=== PATIENT | female | born 1955 | race Caucasian/White ===

== ENCOUNTER → 2016-10-02 | Outpatient (CLI) | payer BC ==
[~2016-10-02] MED LIST: CHOL100010 PO; DOCU-94 PO; FERR325T51 PO; LEVO112T4 PO; SENN-58 PO; SIMV-151 PO; TRIATAB3 PO
--- NOTE | 2016-10-02 12:25 | MAMMOGRAPHY REPORT ---
BILATERAL DIGITAL SCREENING MAMMOGRAM TOMOSYNTHESIS WITH CAD: 10/02/2016 TECHNIQUE: Breast tomosynthesis in addition to standard 2D mammography was performed. Current study was also evaluated with a Computer Aided Detection (CAD) system. COMPARISON: Comparison is made to exams dated: 09/30/2015 mammogram, 09/28/2014 mammogram, 09/23/2012 mammogram, 09/27/2013 mammogram, 09/22/2011 mammogram, and 09/01/2010 mammogram - [facility]. BREAST COMPOSITION: There are scattered areas of fibroglandular density in both breasts. FINDINGS: No suspicious masses, calcifications, or areas of architectural distortion are noted in e ither breast. There has been no significant interval change compared to prior exams. Scattered bilat eral benign-appearing calcifications are not significantly changed. Small circumscribed benign-appe aring mass in the left subareolar breast is stable compared to prior exams. IMPRESSION: ACR BI-RADS CATEGORY 2: BENIGN There is no mammographic evidence of malignancy. A 1 year screening mammogram is recommended. The p atient will receive written notification of the results. Approximately 10% of breast cancers are not detected with mammography. A negative mammographic repor t should not delay biopsy if a clinically suggestive mass is present. Aida Ivy M.D. /:10/02/2016 07:56:59 Demonstrator Knitting: Esther JEROME(R)(M), [facility] letter sent: Normal 1/2 BI-RADS Code: ACR BI-RADS Category 2: Benign
== END | disposition home or self-care (01) ==
LOC: C.MAMM 07:34
PROVIDERS: ATTEND Obstetrics & Gynecology
DX: Z12.31 Encounter for screening mammogram for malignant neoplasm of breast (principal)

== ENCOUNTER → 2017-03-22 | Outpatient (CLI) | payer BC ==
[2017-03-22 13:31] LABS: BLOOD UREA NITROGEN 13 mg/dl (7-18); BUN/CREATININE RATIO 16.3 (10-20); CALCIUM 9.1 mg/dl (8.5-10.1); CARBON DIOXIDE 25 mmol/L (21-32); CHLORIDE 103 mmol/L (98-107); CREATININE 0.78 mg/dl (0.60-1.20); GLUCOSE 85 mg/dl (70-99); SODIUM 137 mmol/L (136-145)
[2017-03-22 13:42] LABS: THYROID STIMULATING HORMONE 0.834 uIu/ml (0.300-4.500)
== END | disposition home or self-care (01) ==
LOC: C.LABPBG 07:36
PROVIDERS: ATTEND Internal Medicine
DX: E03.9 Hypothyroidism, unspecified (principal); I10 Essential (primary) hypertension

== ENCOUNTER → 2017-03-31 | Outpatient (CLI) | payer BC ==
--- NOTE | 2017-03-31 16:19 | DIAGNOSTIC IMAGING REPORT ---
RIGHT HAND 2 VIEWS CLINICAL HISTORY: 61 years-old Female presenting with hand pain, right index and middle finger, lump at the right SC joint. TECHNIQUE: Frontal and lateral views of the right hand were obtained. COMPARISON: None. FINDINGS: Degenerative changes noted at the first carpometacarpal articulation as well as the first carpophalangeal and interphalangeal joints. Prominent radial osteophyte at the head of the third metacarpal. Radiocarpal and intercarpal articulations normal. No acute fracture or malalignment. The second and third fingers are grossly normal, although mild degenerative change may be present. IMPRESSION: Degenerative changes of the first carpometacarpal, metacarpophalangeal, and interphalangeal joints of the first finger. No acute osseous injury. Electronically signed by: Yaron Moya M.D. 03/31/2017 4:17 PM Dictated Date/Time: 03/31/2017 4:15 PM
--- NOTE | 2017-03-31 17:39 | DIAGNOSTIC IMAGING REPORT ---
RIGHT CLAVICLE CLINICAL HISTORY: Disorder of sternoclavicular joint. COMPARISON: None FINDINGS: Alignment of the right acromioclavicular joint is anatomic. There is mild to moderate osteoarthritis of the right acromioclavicular joint. No significant osseous abnormality of the right clavicle is identified. Specifically, there is no fracture or osseous lesion. Alignment of the right sternoclavicular joint appears anatomic. No soft tissue abnormalities are identified although these are often occult by radiography. IMPRESSION: 1. No fracture or suspicious lesion within the right clavicle. 2. 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 Electronically signed by: Yg Vitale M.D. 03/31/2017 5:38 PM Dictated Date/Time: 03/31/2017 5:37 PM
== END | disposition home or self-care (01) ==
LOC: C.RAD1850 15:37
PROVIDERS: ATTEND Internal Medicine
DX: M79.641 Pain in right hand (principal); M19.011 Primary osteoarthritis, right shoulder; M19.041 Primary osteoarthritis, right hand

== ENCOUNTER → 2017-06-04 | Outpatient (CLI) | payer BC ==
[2017-06-04 11:46] LABS: BASO ABS # 0.06 K/uL (0-0.2); COMPLETE YES; EOS % 5.7 %; HEMATOCRIT 42.9 % (37-47); IG% 0.3 %; LYMPH % 34.2 %; LYMPH ABS # 2.16 K/uL (1.2-3.4); MEAN CELL VOLUME 92.5 fL (80-100); MEAN CORPUSCULAR HEMOGLOBIN 31.3 pg (25-34); MEAN CORPUSCULAR HGB CONC 33.8 g/dl (32-36); MEAN PLATELET VOLUME 9.5 fL (7.4-10.4); MONO % 9.4 %; NEUT % 49.4 %; PLATELET COUNT 284 K/uL (130-400); RED BLOOD COUNT 4.64 M/uL (4.2-5.4); WHITE BLOOD COUNT 6.31 K/uL (4.8-10.8)
[2017-06-04 12:00] LABS: CHOLESTEROL/HDL RATIO 3.9; FERRITIN 61.1 ng/ml (8.0-388.0)
== END | disposition home or self-care (01) ==
LOC: C.LABPBG 07:40
PROVIDERS: ATTEND Internal Medicine
DX: E78.5 Hyperlipidemia, unspecified (principal); E61.1 Iron deficiency

== ENCOUNTER → 2017-06-15 | Outpatient (CLI) | payer BC ==
--- NOTE | 2017-06-15 12:38 | DIAGNOSTIC IMAGING REPORT ---
SOFT TISS HEAD/NECK-THYROID CLINICAL HISTORY: 61 years-old Female presenting with M25.9 Disorder of sternoclavicular jointright neck and sternocla. TECHNIQUE: Real-time grayscale ultrasound imaging of the right sternoclavicular joint was performed for a focused evaluation at the site of clinical interest. Color Doppler was also performed. COMPARISON: CT neck from 05/12/2015 and plain radiographs of the right clavicle from 03/31/2017. FINDINGS: At the site of clinical interest, a small hypoechoic nodular region measuring 3 x 2 x 3 mm is noted. No internal vascularity on color Doppler. This is immediately superficial to the right clavicular head at the level of the sternoclavicular joint. IMPRESSION: 1. Small avascular nodule associated with the superficial aspect of the sternoclavicular joint at the level of the right clavicular head. This is indeterminate and may be related to the presence of degenerative changes at the right sternoclavicular joint. No suspicious features. If there is clinical concern, further evaluation with CT to be considered as clinically warranted. Electronically signed by: Yaron Moya M.D. 06/15/2017 12:37 PM Dictated Date/Time: 06/15/2017 12:33 PM
== END | disposition home or self-care (01) ==
LOC: C.ULTR 11:39
PROVIDERS: ATTEND Internal Medicine
DX: M25.9 Joint disorder, unspecified (principal)

== ENCOUNTER → 2017-07-21 | Outpatient (CLI) | payer BC | END | disposition home or self-care (01) | LOC: C.LABSPEC 17:57 → C.PATHSPEC 18:01 | PROVIDERS: ATTEND Obstetrics & Gynecology | DX: L90.0 Lichen sclerosus et atrophicus (principal) ==

== ENCOUNTER 2017-08-24 10:31 | Observation (INO) | payer BC ==
[~2017-08-24] VITALS: Ht 162.6 cm; Wt 73.0 kg
[2017-08-24] MEDS ORDERED: ACETAMINOPHEN 500 MG TAB PO STA (10:47)
[2017-08-24] MEDS ORDERED: ONDANSETRON INJ 2 MG/ML 2 ML VIAL IV STA ×2 (10:47→10:59)
[2017-08-24] MEDS ORDERED: KETOROLAC TROMETHAMINE 30 MG/ML VIAL IV STA (10:59)
[2017-08-24] MEDS ORDERED: MoRPHine SULFATE 4 MG/ML 1 ML CARP\\VIAL IV STA ×2 (10:59→11:39)
[2017-08-24] MEDS ORDERED: LIDOCAINE/EPINEPHRINE 1% 20 ML VIAL INFIL ONE (11:00)
--- NOTE | 2017-08-24 11:03 | EMERGENCY ROOM VISIT NOTE ---
History Report prepared by Kennedy: Glenny Christianson Under the Supervision of: Dr. Luis Feliciano M.D. First contact with patient: 10:45 Chief Complaint: OTHER COMPLAINT Stated Complaint: LABIAL CYST-REF BY History of Present Illness The patient is a 61 year old white female with a past medical history of GERD, hyperlipidemia, hypertension, hypothyroidism and a recent diagnosis of lichen sclerosus who presents to the ED with a cc of persistent pain to her genital area beginning several days ago. She currently rates her discomfort as a 10/10 in severity. The patient states that she was seen by her associate quality engineer, Dr. Chicas, noting that the patient had a punch biopsy that confirmed the lichen sclerosus. The patient was started on Clobetasol and then developed soreness to the area. The patient was started on Keflex, which did not improve her cellulitis. She was then started on Bactrim and was seen in the clinic today. The patient was diagnosed with a labial abscess, but did not wish to have the area lanced in the office today. I spoke to Dr. Chicas on the phone prior to the patient's arrival and she would like the patient to be placed on Vancomycin, to have an I&D, placed on pain medications, and then evaluated in the hospital for further evaluation and treatment. Source of History: patient Onset: several days ago Position: other (genital area) Symptom Intensity: 10/10 Timing: other (persistent) Review of Systems See HPI for pertinent positives and negatives. A total of ten systems were reviewed and were otherwise negative. Past Medical & Surgical Medical Problems: (1) GERD (gastroesophageal reflux disease) (2) Hyperlipidemia (3) Hypertension (4) Hypothyroidism (5) Labial abscess (6) Lichen sclerosus Social History Smoking Status: Never Smoker Alcohol Use: occasionally Drug Use: none Marital Status: Housing Status: lives with family Occupation Status: employed Current/Historical Medications Scheduled Clobetasol Propionate (Clobetasol Propionate Cream 0.05%), 1 APPLN EXT DAILY Levothyroxine Sodium (Levothyroxine Sodium), 112 MG PO DAILY Nortriptyline HCl (Nortriptyline HCl), 10 MG PO HS Omeprazole (Prilosec), 40 MG PO DAILY Pravastatin Sod (Pravastatin Sodium), 20 MG PO 3XWK Sulfa/Trimethoprim (Bactrim Ds 800MG/160MG), 1 TAB PO BID Triamterene/Hctz (Dyazide 37.5MG/25MG), 1 TAB PO DAILY Allergies Coded Allergies: No Known Allergies (Unverified , NONE, 08/24/17) Physical Exam Vital Signs Date Time Temp Pulse Resp B/P (MAP) Pulse Ox O2 Delivery O2 Flow Rate FiO2 08/24/17 10:44 36.7 74 18 149/89 93 Room Air Physical Exam GENERAL: Awake, alert, uncomfortable-appearing, in pain, tearful HENT: Normocephalic, atraumatic. EYES: Normal conjunctiva. Sclera non-icteric. NECK: Supple. No nuchal rigidity. FROM. RESPIRATORY: CTAB, no rhonchi, wheezing, crackles CARDIAC: RRR, no MRG ABDOMEN: Soft, NTND, BS+ : Right labia majora, significant soft tissue swelling, TTP and redness, fluctuance noted, some cellulitic change management analyst the right labia. MSK: No chest wall TTP, no LE edema NEURO: GCS 15, CN 2-12 intact, moves all 4s on command SKIN: No rash or jaundice noted. Medical Decision & Procedures Laboratory Results 08/24/17 11:05 Red Blood Count 4.48, Mean Corpuscular Volume 90.4, Mean Corpuscular Hemoglobin 31.3, Mean Corpuscular Hemoglobin Concent 34.6, Mean Platelet Volume 9.2, Neutrophils (%) (Auto) 67.3, Lymphocytes (%) (Auto) 22.1, Monocytes (%) (Auto) 8.5, Eosinophils (%) (Auto) 1.5, Basophils (%) (Auto) 0.3, Neutrophils # (Auto) 6.17, Lymphocytes # (Auto) 2.03, Monocytes # (Auto) 0.78, Eosinophils # (Auto) 0.14, Basophils # (Auto) 0.03 08/24/17 11:05 Test 08/24/17 11:00 08/24/17 11:05 Urine Color YELLOW Urine Appearance CLEAR (CLEAR) Urine pH 7.0 (4.5-7.5) Urine Specific [place] 1.013 (1.000-1.030) Urine Protein NEG (NEG) Urine Glucose (UA) NEG (NEG) Urine Ketones NEG (NEG) Urine Occult Blood NEG (NEG) Urine Nitrite NEG (NEG) Urine Bilirubin NEG (NEG) Urine Urobilinogen NEG (NEG) Urine Leukocyte Esterase SMALL (NEG) Urine WBC (Auto) 1-5 /hpf (0-5) Urine RBC (Auto) >30 /hpf (0-4) Urine Hyaline Casts (Auto) 0 /lpf (0-5) Urine Epithelial Cells (Auto) 10-20 /lpf (0-5) Urine Bacteria (Auto) NEG (NEG) White Blood Count 9.18 K/uL (4.8-10.8) Red Blood Count 4.48 M/uL (4.2-5.4) Hemoglobin 14.0 g/dL (12.0-16.0) Hematocrit 40.5 % (37-47) Mean Corpuscular Volume 90.4 fL (80-100) Mean Corpuscular Hemoglobin 31.3 pg (25-34) Mean Corpuscular Hemoglobin Concent 34.6 g/dl (32-36) Platelet Count 285 K/uL (130-400) Mean Platelet Volume 9.2 fL (7.4-10.4) Neutrophils (%) (Auto) 67.3 % Lymphocytes (%) (Auto) 22.1 % Monocytes (%) (Auto) 8.5 % Eosinophils (%) (Auto) 1.5 % Basophils (%) (Auto) 0.3 % Neutrophils # (Auto) 6.17 K/uL (1.4-6.5) Lymphocytes # (Auto) 2.03 K/uL (1.2-3.4) Monocytes # (Auto) 0.78 K/uL (0.11-0.59) Eosinophils # (Auto) 0.14 K/uL (0-0.5) Basophils # (Auto) 0.03 K/uL (0-0.2) RDW Standard Deviation 44.3 fL (36.4-46.3) RDW Coefficient of Variation 13.3 % (11.5-14.5) Immature Granulocyte % (Auto) 0.3 % Immature Granulocyte # (Auto) 0.03 K/uL (0.00-0.02) Anion Gap 10.0 mmol/L (3-11) Est Creatinine Clear Calc Drug Dose 64.3 ml/min Estimated GFR () 80.0 Estimated GFR (Non- 69.0 BUN/Creatinine Ratio 10.0 (10-20) Calcium Level 9.4 mg/dl (8.5-10.1) Laboratory results reviewed by me Medications Administered Medications (Trade) Dose Ordered Sig/Ruth Route Start Time Stop Time Status Last Admin Dose Admin Ondansetron HCl (Zofran Inj) 4 mg NOW STAT IV 08/24/17 10:47 08/24/17 10:49 DC 08/24/17 11:09 4 MG Acetaminophen (Tylenol Tab) 1,000 mg NOW STAT PO 08/24/17 10:47 08/24/17 10:49 DC 08/24/17 11:00 1,000 MG Lidocaine/ Epinephrine (Xylocaine/Epine 1% Inj) 20 ml NOW ONCE INFIL 08/24/17 11:00 08/24/17 11:01 DC 08/24/17 11:01 20 ML Ketorolac Tromethamine (Toradol Inj) 30 mg NOW STAT IV 08/24/17 10:59 08/24/17 11:01 DC 08/24/17 11:10 30 MG Morphine Sulfate (MoRPHine SULFATE INJ) 4 mg NOW STAT IV 08/24/17 10:59 08/24/17 11:01 DC 08/24/17 11:09 4 MG Vancomycin HCl 1500 mg/Sodium Chloride 280 ml @ 125 mls/hr NOW STAT IV 08/24/17 11:39 08/24/17 13:53 DC 08/24/17 12:13 125 MLS/HR Morphine Sulfate (MoRPHine SULFATE INJ) 4 mg NOW STAT IV 08/24/17 11:39 08/24/17 11:40 DC 08/24/17 11:58 4 MG Procedure Incision & Drainage Indication: Abscess. Location: right labia majora Verbal consent was obtained after the risks and benefits were explained, including but not limited to bleeding, scarring, infection, pain, and bone/joint /nerve damage. At this time, the risks of the procedure are less than the risks of NOT performing the procedure. A time out was taken and the correct patient and site identified. The skin was prepped with betadine and a sterile field set. The wound was anesthetized with 3 ml of 1% lidocaine with epinephrine. The abscess cavity was entered with a number 11 blade and purulent material expressed. Copious irrigation was performed using normal saline. The wound was explored for foreign bodies and none found. Debridement was not performed. Detailed wound care instructions and signs and symptoms of worsening infection reviewed with the patient. No complications and the patient tolerated the procedure well. ED Course 1053: The patient was evaluated in room A11B. A complete history and physical exam was performed. 1119: At this time I performed the I&D on the patient, see procedure note for further detail. I discussed the treatment plan with the patient and she verbalized complete understanding and agreement. She will be evaluated for further treatment. 1142: I spoke to Dr. Chicas, associate quality engineer regarding the patient at this time. She is going to evaluate the patient for further treatment. Medical Decision Differential diagnosis: Etiologies such as cellulitis, abscess, MRSA infection, DVT, necrotizing fasciitis, dermatitis, drug eruption, as well as others were entertained.. The patient is a 61 year old white female with a past medical history of GERD, hyperlipidemia, hypertension, hypothyroidism and a recent diagnosis of lichen sclerosus who presents to the ED with a cc of persistent pain to her genital area beginning several days ago. Patient was seen and evaluated the bedside. I did discuss this patient with the referring physician Dr. Chicas. She had referred the patient as the patient was not amenable to having an I&D of a right labial abscess status post failed outpatient treatment with antibiotics. Patient did have an I&D of the right labial abscess. Patient blood work was obtained. Patient was given pain control as well as IV vancomycin per the request of the referring provider. Patient kidney function normal. Patient did not have an elevated white blood cell count. Patient was admitted to the MATERIALS DIRECTOR service for an observation period. Medication Reconcilliation Current Medication List: was personally reviewed by me Consults Time Called: 1140 Consulting Physician: Dr. Chicas, associate quality engineer Returned Call: [address] Chicas associate quality engineer regarding the patient at this time. She is going to evaluate the patient for further treatment. Impression Primary Impression: Labial abscess Scribe Attestation The scribe's documentation has been prepared under my direction and personally reviewed by me in its entirety. I confirm that the note above accurately reflects all work, treatment, procedures, and medical decision making performed by me. Departure Information Dispostion Being Evaluated By Surgeon Referrals No Doctor, Assigned (PCP)
[2017-08-24 11:24] LABS: BASO % 0.3 %; BASO ABS # 0.03 K/uL (0-0.2); COMPLETE YES; EOS % 1.5 %; HEMATOCRIT 40.5 % (37-47); IG% 0.3 %; LYMPH % 22.1 %; LYMPH ABS # 2.03 K/uL (1.2-3.4); MEAN CELL VOLUME 90.4 fL (80-100); MEAN CORPUSCULAR HEMOGLOBIN 31.3 pg (25-34); MEAN CORPUSCULAR HGB CONC 34.6 g/dl (32-36); MEAN PLATELET VOLUME 9.2 fL (7.4-10.4); MONO % 8.5 %; NEUT % 67.3 %; PLATELET COUNT 285 K/uL (130-400); RED BLOOD COUNT 4.48 M/uL (4.2-5.4); WHITE BLOOD COUNT 9.18 K/uL (4.8-10.8)
[2017-08-24 11:31] LABS: URINE APPEARANCE CLEAR (CLEAR); URINE BILIRUBIN NEG (NEG); URINE COLOR YELLOW; URINE NITRITE NEG (NEG); URINE SPECIFIC GRAVITY 1.013 (1.000-1.030); UROBILINOGEN NEG (NEG); ZZUR CULT IF INDIC CLEAN CATCH NO
[2017-08-24 11:32] LABS: MANUAL MICROSCOPIC REQUIRED? NO; REVIEW REQ? NO
[2017-08-24] MEDS ORDERED: SULF800T23 PO (11:32)
[2017-08-24] MEDS ORDERED: NORT10CA4 PO (11:32)
[2017-08-24] MEDS ORDERED: CLBCRM30 EXT (11:32)
[2017-08-24] MEDS ORDERED: TRIA37.5 PO (11:33)
[2017-08-24] MEDS ORDERED: PRVC/20 PO (11:34)
[2017-08-24] MEDS ORDERED: OMEP40CA41 PO (11:34)
[2017-08-24] MEDS ORDERED: VANCOMYCIN INJ 1,500 MG in SODIUM CHLORIDE 0.9% 250ML 250 ML IV STA (11:39)
[2017-08-24 11:41] LABS: CALCIUM 9.4 mg/dl (8.5-10.1); CREATININE 0.9 mg/dl (0.60-1.20); POTASSIUM 3.7 mmol/L (3.5-5.1)
[2017-08-24] MEDS ORDERED: ACETAMINOPHEN 325 MG TAB PO PRN (11:45)
[2017-08-24] MEDS ORDERED: ONDANSETRON INJ 2 MG/ML 2 ML VIAL IV PRN (11:45)
[2017-08-24] MEDS ORDERED: OXYCODONE HCL IR 5 MG TAB (IMMEDIATE RELEASE) PO PRN (12:00)
[2017-08-24] MEDS ORDERED: IV FLUIDS COMPLETED PRN (12:30)
[2017-08-24 12:55] VITALS: BP 134/76; PULSE 59; TEMP 36.6; O2SAT 96; Ht 162.6 cm; Wt 73.0 kg
[2017-08-24] MEDS ORDERED: VANCOMYCIN INJ 1,500 MG in SODIUM CHLORIDE 0.9% 500ML 500 ML IV ONE (13:30)
[2017-08-24] MEDS ORDERED: VANCOMYCIN CONSULT ACTIVE PRN (13:30)
--- NOTE | 2017-08-24 13:42 | Pharmacy Progress Note ---
Pharmacy Abx Dose Short Note Date of Service Aug 24, 2017. Assessment & Plan Assessment * 61 year old female admitted for labial cyst * Pharmacy has been consulted to initiate IV vancomycin therapy * ED provider has already given vancomycin loading dose 1500mg (20mg/kg) Plan Vancomycin * Maintenance dose: 1000 mg (13.6mg/kg) IV every 14 hours * Goal trough level for skin/soft tissue : 10 to 20 mcg/mL * Trough level ordered for: 08/26/17 w/ 4th maintenance dose * Pkinetic estimates: Vd 0.7L/kg; half-life ~12 hours Pharmacy will continue to follow and will adjust dose/frequency as necessary. Thank you.
[2017-08-24] MEDS ORDERED: PROMETHAZINE HCL INJ 12.5 MG in SODIUM CHLORIDE 0.9% 50ML 50 ML IV PRN (14:30)
[2017-08-24 15:20] VITALS: BP 136/77; PULSE 58; TEMP 36.4; O2SAT 96
[2017-08-24] MEDS ORDERED: NORTRIPTYLINE HCL 10 MG CAP PO SCH (21:00)
[2017-08-24 23:45] VITALS: BP 132/80; PULSE 50; TEMP 37; O2SAT 96
[2017-08-25] MEDS ORDERED: VANCOMYCIN INJ 1,000 MG in SODIUM CHLORIDE 0.9% 250ML 250 ML IV SCH (02:00)
[2017-08-25 04:45] VITALS: BP 127/80; PULSE 54; TEMP 36.8; O2SAT 96
[2017-08-25] MEDS ORDERED: LEVOTHYROXINE 112 MCG TAB PO SCH (07:00)
[2017-08-25 07:25] VITALS: BP 146/78; PULSE 54; TEMP 37; O2SAT 95
[2017-08-25] MEDS ORDERED: CLC150 PO (08:46)
--- NOTE | 2017-08-25 08:49 | Discharge Instructions ---
Discharge Instructions Date of Service Aug 25, 2017. Admission Reason for Admission: Labial Abscess Discharge Discharge Diagnosis / Problem: vulvar abscess Discharge Goals Goal(s): Continuing WELL BLOWER care Activity Recommendations Activity Limitations: resume your previous activity . Instructions / Follow-Up Instructions / Follow-Up Sitz bath or hot compress Q2-3 hours for 3 days, to encourage drainage. Clindamycin (antibiotic) by mouth every six hours until all doses taken. Call Dr. Chicas at [phone] if redness, firmness, or pain in the affected area are getting worse instead of better. Do not use clobetasol until your follow up appointment in the first week of September. The office should call you in the next day or two to schedule the follow up appointment; if they do not, please call Dr. Chicas at the number above to get scheduled. Current Hospital Diet Patient's current hospital diet: Regular Diet Discharge Diet Recommended Diet: Regular Diet Pending Studies Studies pending at discharge: no Laboratory Results Lipid Panel Test 06/04/17 07:44 Range/Units Triglycerides Level 222 H 0-150 mg/dl Cholesterol Level 205 H 0-200 mg/dl HDL Cholesterol 52 mg/dl Cholesterol/HDL Ratio 3.9 LDL Cholesterol, Calculated 109 mg/dl Medical Emergencies . Who to Call and When: Medical Emergencies: If at any time you feel your situation is an emergency, please call 911 immediately. . Non-Emergent Contact Non-Emergency issues call your: Primary Care Provider . . "Provider Documentation" section prepared by Vandana Chicas. . VTE Core Measure Inpt VTE Proph given/why not?: Treatment not indicated
[2017-08-25] MEDS ORDERED: TRIAMTERENE/HCTZ 37.5/25MG CAP PO SCH (09:00)
[2017-08-25] MEDS ORDERED: PANTOprazole SOD 40 MG TAB PO SCH (09:00)
[2017-08-25] MEDS ORDERED: PRAVASTATIN SOD 20 MG TAB PO SCH (09:00)
[2017-08-25] MEDS ORDERED: CLINDAMYCIN HCL 150 MG CAP PO SCH (10:00)
[2017-08-25 11:10] VITALS: BP 146/78; PULSE 54; TEMP 37; O2SAT 95
[2017-08-26] MEDS ORDERED: VANCOMYCIN TROUGH ONE (19:30)
--- NOTE | 2017-09-08 15:58 | History and Physical ---
History & Physical Date & Time of Service: Sep 08, 2017 at 15:55 Chief Complaint: Labial Abscess Primary Care Physician: Manas Fulton M.D. History of Present Illness Source: patient 61yo with labial abscess and cellulitis in the setting of recent biopsy for Lichen Sclerosus. Seen in office, sent to ER for I&D, admitted to floor for IV Abx. Past Medical/Surgical History Medical Problems: (1) GERD (gastroesophageal reflux disease) Status: Chronic (2) Hyperlipidemia Status: Chronic (3) Hypertension Status: Chronic (4) Hypothyroidism Status: Chronic (5) Lichen sclerosus Status: Chronic Social History Smoking Status: Former Smoker Smokeless Tobacco Use: No Alcohol Use: none Drug Use: none Marital Status: Occupational Status: employed Immunizations History of Influenza Vaccine: Unknown Multi-Drug Resistant Organisms History of MDRO: No Allergies Coded Allergies: No Known Allergies (Unverified , NONE, 08/24/17) Home Medications Scheduled Clindamycin HCl (Clindamycin HCl), 150 MG PO Q6 Clobetasol Propionate (Clobetasol Propionate Cream 0.05%), 1 APPLN EXT DAILY Levothyroxine Sodium (Levothyroxine Sodium), 112 MG PO DAILY Nortriptyline HCl (Nortriptyline HCl), 10 MG PO HS Omeprazole (Prilosec), 40 MG PO DAILY Pravastatin Sod (Pravastatin Sodium), 20 MG PO 3XWK Triamterene/Hctz (Dyazide 37.5MG/25MG), 1 TAB PO DAILY Review of Systems Constitutional: No fever, No chills Eyes: No worsening of vision, No eye pain, No redness, No discharge, No diplopia, No problem reported ENT: No hearing loss, No unusual epistaxis, No nasal symptoms, No sore throat, No tinnitus, No dental problems, No trouble swallowing, No problem reported Respiratory: No cough, No sputum, No wheezing, No shortness of breath, No dyspnea on exertion, No dyspnea at rest, No hemoptysis, No problem reported Cardiovascular: No chest pain, No orthopnea, No PND, No edema, No claudication , No palpitations, No problem reported Abdomen: No pain, No nausea, No vomiting, No diarrhea, No constipation, No GI bleeding, No problem reported Musculoskeletal: No joint pain, No muscle pain, No swelling, No calf pain, No problem reported Genitourinary - Female: + rash, + vulvodynia Neurologic: No memory loss, No paralysis, No weakness, No numbness/tingling, No vertigo, No balance problems, No problem reported Psychiatric: No depression symptoms, No anhedonism, No anxiety, No insomnia, No substance abuse, No problem reported Endocrine: No fatigue, No excessive thirst, No excessive urination, No problem reported Hematologic / Lymphatic: No abnormal bleeding/bruising, No clotting problems, No swollen lymph nodes, No night sweats, No problem reported Integumentary: No rash, No itch, No new/changing skin lesions, No color change , No bleeding, No problem reported Allergic / Immunologic: No environmental allergies, No seasonal allergies, No pet sensitivities, No food allergies, No hives, No frequent infections, No poor healing, No prolonged convalescence, No problem reported Physical Exam General Appearance: WD/WN, + mild distress Head: normocephalic, atraumatic Eyes: normal inspection ENT: normal ENT inspection Neck: supple Respiratory/Chest: no respiratory distress, no accessory muscle use Cardiovascular: no edema Abdomen/GI: non tender, soft Genitourinary - Female: + pertinent finding (R labia with gumball sized abscess and surrounding cellulitis) Neurologic/Psych: alert, oriented x 3 Lymphatic: no adenopathy Impression Assessment and Plan Admitted to floor for IV antibiotic after I&D done in ER with excellent relief per patient. Level of Care [facility] Children[facility] Advanced Directives Existing Living Will: Yes Existing Power of Dough Machine Operator: Yes Resuscitation Status FULL RESUSCITATION VTE Prophylaxis VTE Risk Assessment Done? Y/N: Yes Risk Level: Low Given or contraindicated: Treatment not indicated
--- NOTE | 2017-09-08 15:58 | Discharge Summary ---
Discharge Summary Date of Service Sep 08, 2017. Discharge Summary Admission Date: Aug 24, 2017 at 11:47 Discharge Date: Aug 25, 2017 Discharge Disposition: Home Principal Diagnosis: Vulvar abscess Immunizations: Have You Had Influenza Vaccine: Unknown Medication Reconciliation New Medications: Clindamycin HCl (Clindamycin HCl) 150 Mg Cap 150 MG PO Q6 for 6 Days, #24 CAP Continued Medications: Clobetasol Propionate (Clobetasol Propionate Cream 0.05%) 90 Appln/30 Gm Cr 1 APPLN EXT DAILY, TUBE Levothyroxine Sodium (Levothyroxine Sodium) 112 Mcg Tab 112 MG PO DAILY, #90 Nortriptyline HCl (Nortriptyline HCl) 10 Mg Cap 10 MG PO HS Omeprazole (Prilosec) 40 Mg Cap 40 MG PO DAILY Pravastatin Sod (Pravastatin Sodium) 20 Mg Tab 20 MG PO 3XWK Triamterene/Hctz (Dyazide 37.5MG/25MG) Cap 1 TAB PO DAILY, CAP Discontinued Medications: Sulfa/Trimethoprim (Bactrim Ds 800MG/160MG) Tab 1 TAB PO BID, #6 TAB Hospital Course Admitted to floor for IV antibiotic after I&D done in ER with excellent relief per patient. Total Time Spent: Less than 30 minutes This includes examination of the patient, discharge planning, medication reconciliation, and communication with other providers. Discharge Instructions Please refer to the electronic Patient Visit Report (Discharge Instructions) for additional information.
== END 2017-08-25 11:10 | disposition home or self-care (01) ==
LOC: C.EDB 10:33 → C.MS4N 11:47 → ENRESERV 12:10
PROVIDERS: ADMIT Obstetrics & Gynecology; ATTEND Obstetrics & Gynecology
DX: L90.0 Lichen sclerosus et atrophicus (principal); N76.4 Abscess of vulva; K21.9 Gastro-esophageal reflux disease without esophagitis; E78.5 Hyperlipidemia, unspecified; I10 Essential (primary) hypertension; E03.9 Hypothyroidism, unspecified

== ENCOUNTER → 2017-10-05 | Outpatient (CLI) | payer BC ==
[~2017-10-05] MED LIST changes: -CHOL100010 PO; +CLBCRM30 EXT; +CLC150 PO; -DOCU-94 PO; -FERR325T51 PO; +NORT10CA4 PO; +OMEP40CA41 PO; +PRVC/20 PO; -SENN-58 PO; -SIMV-151 PO; +TRIA37.5 PO; -TRIATAB3 PO
--- NOTE | 2017-10-05 14:41 | MAMMOGRAPHY REPORT ---
BILATERAL DIGITAL SCREENING MAMMOGRAM TOMOSYNTHESIS WITH CAD: 10/05/2017 CLINICAL HISTORY: Routine screening. Patient has no complaints. TECHNIQUE: Breast tomosynthesis in addition to standard 2D mammography was performed. Current study was also evaluated with a Computer Aided Detection (CAD) system. COMPARISON: Comparison is made to exams dated: 10/02/2016 mammogram, 09/30/2015 mammogram, 09/28/2014 m ammogram, 09/27/2013 mammogram, 09/23/2012 mammogram, and 09/01/2010 mammogram - [facility]. BREAST COMPOSITION: There are scattered areas of fibroglandular density in both breasts. FINDINGS: No suspicious masses, calcifications, or areas of architectural distortion are noted in ei ther breast. There has been no significant interval change compared to prior exams. Scattered bilate ral benign-appearing calcifications are again noted. Small circumscribed benign-appearing mass in th e left subareolar breast is stable compared to prior exams. IMPRESSION: ACR BI-RADS CATEGORY 2: BENIGN There is no mammographic evidence of malignancy. A 1 year screening mammogram is recommended. The pa tient will receive written notification of the results. Approximately 10% of breast cancers are not detected with mammography. A negative mammographic report should not delay biopsy if a clinically suggestive mass is present. Aida Ivy M.D. /:10/05/2017 07:59:42 Translator Interpreter: Jennifer Cintron, [facility] letter sent: Normal 1/2 BI-RADS Code: ACR BI-RADS Category 2: Benign
== END | disposition home or self-care (01) ==
LOC: C.MAMM 07:43
PROVIDERS: ATTEND Obstetrics & Gynecology
DX: Z12.31 Encounter for screening mammogram for malignant neoplasm of breast (principal)

== ENCOUNTER → 2017-10-07 | Outpatient (CLI) | payer BC ==
[2017-10-07 12:30] LABS: HEMATOCRIT 41.5 % (37-47); HEMOGLOBIN 13.9 g/dL (12.0-16.0); MEAN CORPUSCULAR HEMOGLOBIN 31.2 pg (25-34); MEAN CORPUSCULAR HGB CONC 33.5 g/dl (32-36); MEAN PLATELET VOLUME 9.8 fL (7.4-10.4); PLATELET COUNT 275 K/uL (130-400); RED CELL DISTRIBUTION WIDTH CV 13.6 % (11.5-14.5); RED CELL DISTRIBUTION WIDTH SD 46.3 fL (36.4-46.3)
[2017-10-07 13:08] LABS: ALT/SGPT 27 U/L (12-78); AST/SGOT 18 U/L (15-37); BLOOD UREA NITROGEN 12 mg/dl (7-18); CALCIUM 8.9 mg/dl (8.5-10.1); CARBON DIOXIDE 29 mmol/L (21-32); CREATININE 0.87 mg/dl (0.60-1.20); GLUCOSE 96 mg/dl (70-99); POTASSIUM 3.8 mmol/L (3.5-5.1); SODIUM 134 mmol/L (136-145)
[2017-10-07 13:22] LABS: CHOLESTEROL 190 mg/dl (0-200); LDL CHOLESTEROL CALCULATED 89 mg/dl
== END | disposition home or self-care (01) ==
LOC: C.LABPBG 07:35
PROVIDERS: ATTEND Internal Medicine
DX: E78.5 Hyperlipidemia, unspecified (principal); I10 Essential (primary) hypertension; E61.1 Iron deficiency; E55.9 Vitamin D deficiency, unspecified; E03.9 Hypothyroidism, unspecified

== ENCOUNTER → 2017-10-12 | Outpatient (CLI) | payer BC ==
[2017-10-13 14:17] LABS: ANA SCREEN TC 249X POSITIVE (NEGATIVE)
== END | disposition home or self-care (01) ==
LOC: C.LAB1850 09:30
PROVIDERS: ATTEND Internal Medicine
DX: M25.50 Pain in unspecified joint (principal)

== ENCOUNTER → 2017-11-09 | Outpatient (CLI) | payer BC ==
--- NOTE | 2017-11-09 10:00 | DIAGNOSTIC IMAGING REPORT ---
L HAND MIN 3 VIEWS ROUTINE, R HAND MIN 3 VIEWS ROUTINE HISTORY: 61 years-old Female E55.9 Vitamin D [id number] Elevated antinuclear antibody (A acute bilateral hand pain COMPARISON: Right hand radiographs 03/31/2017 TECHNIQUE: 3 views of the bilateral hands for a total of 6 images FINDINGS: LEFT: The bones are mildly demineralized. Mild radiocarpal and triscaphe the osteoarthritis with moderate first carpometacarpal and mild to moderate multidigit interphalangeal and metacarpophalangeal degenerative changes. No erosive arthropathy, acute fracture or subluxation. No opaque foreign body. Subcortical cystic changes noted throughout the periarticular phalanges. RIGHT: Mild to moderate radiocarpal and triscaphe osteoarthritis. Bones are mildly demineralized. Moderate first carpometacarpal and moderate interphalangeal and metacarpophalangeal degenerative changes. Somewhat more morphology of osteophytes involve the second third metacarpal heads. No acute fracture or subluxation. Soft tissues are unremarkable without opaque foreign body. No evidence of erosive arthropathy. IMPRESSION: 1. No acute fracture or subluxation. 2. No evidence of erosive arthropathy. 3. Osteopenic appearance of the bones with degenerative changes as above, right greater than left. The above report was generated using voice recognition software. It may contain grammatical, syntax or spelling errors. Electronically signed by: Bubba Salazar M.D. 11/09/2017 9:59 AM Dictated Date/Time: 11/09/2017 9:50 AM
== END | disposition home or self-care (01) ==
LOC: C.RAD1850 09:24
PROVIDERS: ATTEND Internal Medicine Rheumatology
DX: E55.9 Vitamin D deficiency, unspecified (principal); M79.641 Pain in right hand; M79.642 Pain in left hand; R76.8 Other specified abnormal immunological findings in serum; M19.042 Primary osteoarthritis, left hand; M19.041 Primary osteoarthritis, right hand; M18.0 Bilateral primary osteoarthritis of first carpometacarpal joints

== ENCOUNTER 2019-06-26 20:56 | Observation (INO) ==
[2019-06-26 23:15] LABS: Basophils # (auto) 0.05 K/uL (0-0.2); Basophils % (auto) 0.8 %; Eosinophils # (auto) 0.26 K/uL (0-0.5); Eosinophils % (auto) 4.1 %; Hematocrit (blood only) 41.4 % (37-47); Hemoglobin 14.3 g/dL (12.0-16.0); Immature Granulocytes # (auto) 0.01 K/uL (0.00-0.02); Immature Granulocytes % (auto) 0.2 %; Mean Corpuscular Hemoglobin 31.4 pg (25-34); Mean Corpuscular Hgb Conc 34.5 g/dL (32-36); Monocytes # (auto) 0.69 K/uL (0.11-0.59); Monocytes % (auto) 10.8 %; Neutrophils # (auto) 3.26 K/uL (1.4-6.5); Neutrophils % (auto) 51.1 %; Platelet Count 289 K/uL (130-400); RDW Coefficient of Variation 13.4 % (11.5-14.5); RDW Standard Deviation 44.1 fL (36.4-46.3); Red Blood Count 4.55 M/uL (4.2-5.4); White Blood Count 6.37 K/uL (4.8-10.8)
[2019-06-26] MEDS ORDERED: SODIUM CHLORIDE 0.9% 1000ML 1,000 ML IV ONE (23:23)
[2019-06-26] MEDS ORDERED: DIAZEPAM 5 MG/ML INJ 10ML VIAL IV STA (23:23)
[2019-06-26 23:24] LABS: Alanine Aminotransferase 30 U/L (12-78); Albumin Level 4.3 gm/dl (3.4-5.0); Aspartate Aminotransferase 20 U/L (15-37); BUN Creatinine Ratio 16.5 (10-20); Blood Urea Nitrogen 13 mg/dl (7-18); Calcium 9.4 mg/dl (8.5-10.1); Carbon Dioxide 26 mmol/L (21-32); Chloride 97 mmol/L (98-107); Est GFR (African American) 96.8; Est GFR (Non-African American) 83.5; Glucose 96 mg/dl (70-99); Potassium 3.8 mmol/L (3.5-5.1); Sodium 132 mmol/L (136-145)
[2019-06-26 23:27] LABS: Albumin Globulin Ratio 1.6 (0.9-2); Alkaline Phosphatase 102 U/L (45-117); Bilirubin,Total 0.5 mg/dl (0.2-1); Globulin 2.6 gm/dl (2.5-4.0); Total Protein 6.9 gm/dl (6.4-8.2)
[2019-06-27] MEDS ORDERED: ASPIRIN 81 MG CHEW PO STA (02:04)
[2019-06-27 03:14] LABS: Appearance Urine Clear (Clear); Bacteria Urine Automated Negative (Negative); Bilirubin Urine Negative (Negative); Blood Urine Negative (Negative); Color Urine Yellow; Glucose Urine UA Negative (Negative); Ketones Urine Negative (Negative); Leukocyte Esterase Urine Trace (Negative); Nitrite Urine Negative (Negative); Protein Urine Negative (Negative); Specific Gravity Urine 1.018 (1.000-1.030); Urobilinogen Urine Negative (Negative); pH Urine 6.5 (4.5-7.5)
--- NOTE | 2019-06-27 03:40 | History & Physical Report ---
Date of Service June 27, 2019 Assessment & Plan (1) Vertigo: 63-year-old female with a past medical history of hypertension, hyperlipidemia, hypothyroidism, GERD, depression presents with headache vertigo and left hand paresthesia. Admission for stroke rule out. Intractable vertigo, left upper extremity paresthesia CT negative, admit for further stroke work-up including MRI without contrast, neurology consult per protocol Continue pravastatin, triamterene-hctz PRN Lorazepam, Benadryl for vertigo. Zofran for nausea Follow A1c, lipids Hyponatremia Patient avoid salt, says that exacerbates vertigo Normal saline 110 cc/h Hypothyroidism Continue levothyroxine Depression/anxiety/insomnia Continue nortriptyline Lorazepam as needed CODE STATUSfull Dietheart healthy DVT prophylaxisSCDs, ambulation (2) Headache: (3) Paresthesia of left arm: (4) Hyperlipidemia: (5) Hypertension: (6) Hypothyroidism: History of Present Illness Primary Care Provider: Manas Fulton MD 63-year-old female with a past medical history of hypertension, hyperlipidemia, hypothyroidism, GERD, depression presents with headache, vertigo and left hand paresthesia. The symptoms began the previous morning and worsened throughout the workday. Patient went home from work early, took ibuprofen and decided later to go to the emergency room as her symptoms persisted. She describes headache over her right latter day. She describes having a past medical history of vertigo and has had more episodes recently since going on a cruise this past spring. She describes nausea, but denies vomiting/diarrhea/abdominal pain. She denies any URI symptoms including sore throat, cough, runny nose. While she describes having tingling and numbness in her left hand, she denies any weakness or other focal neuro deficits. She describes a family history of stroke. 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 She reports increased stress in her life related to personal loss. Allergies Allergy/AdvReac Type Severity Reaction Status Date / Time No Known Allergies Allergy Verified 06/26/19 21:48 Home Medications Home Medications Medication Instructions Recorded Confirmed Type triamterene 37.5 1 cap PO DAILY #90 cap 03/06/19 06/26/19 Rx mg-hydrochlorothiazide 25 mg capsule ferrous sulfate 325 mg (65 mg 325 mg PO 4XWK tab 03/28/19 06/26/19 History iron) tablet lorazepam 0.5 mg tablet 0.5 mg PO HS #30 tab 03/28/19 06/26/19 History meclizine 25 mg tablet 25 mg PO DIRECTED PRN tab 03/28/19 06/26/19 History levothyroxine 125 mcg capsule 125 mcg PO DAILY #90 cap 04/04/19 06/26/19 Rx Fiber Con 1 tab PO DAILY 06/26/19 06/26/19 History Olga Lidia Colace 1 tab PO DAILY 06/26/19 06/26/19 History cholecalciferol (vitamin D3) 5,000 unit PO DAILY 06/26/19 06/26/19 History [Vitamin D3] clobetasol 1 appln TOP 2XWK 06/26/19 06/26/19 History docusate sodium [Colace] 100 mg PO DAILY 06/26/19 06/26/19 History nortriptyline 20 mg PO 4XWK 06/26/19 06/26/19 History pravastatin 20 mg PO 3XWK 06/26/19 06/26/19 History Past Med/Surg History Medical History TMJ syndrome History of vertigo History of long-term treatment with high-risk medication ETD (eustachian tube dysfunction) GERD (gastroesophageal reflux disease) (Chronic) Hyperlipidemia (Chronic) Hypertension (Chronic) Hypothyroidism (Chronic) Anemia Insomnia Surgical History Hx of total knee arthroplasty Family History Mother Rheumatoid arthritis Hypertension Stroke Cancer Father Hypertension Stroke Cancer FH: deafness or hearing loss Family/Other Stroke Other Family history of blood clots Social History Preferred Language: [place] Communication Ability: Effective Visual Impairment: No Limitations Hearing Ability: Normal Automobile Rental Agent Required: No Beliefs That Will Affect Care: None marital status: Current Living Situation: Spouse current occupational status: employed Feels Safe at Home: Yes Safety Concerns: Feels Safe At This Time Smoking Status: Never smoker Do You Dip or Chew Tobacco: No ; Hx Alcohol Use: Yes Alcohol type: beer, wine and hard liquor Hx Substance Use: No Childhood Exposure to Second-Hand Smoke: No Dental Care, Regularly: Yes Physical Activity Frequency: 1-2 Times per Week Seatbelt Use: always Sunscreen Use: Yes Review of Systems Review of Systems: All systems reviewed & are unremarkable except as noted in HPI & below Constitutional: no fever and no chills Respiratory: no cough and no dyspnea Cardiovascular: no chest pain Gastrointestinal: + nausea; no abdominal pain and no vomiting Physical Exam Constitutional: WD/WN, vitals as above Eyes: PERRL, conjunctivae normal, anicteric sclerae ENMT: external ear and nose normal, oropharynx normal Neck: trachea midline, no thyromegaly Respiratory: normal respiratory effort, lungs clear to auscultation Cardiovascular: RRR, no murmur, no edema Gastrointestinal (Abdomen): normal bowel sounds, soft, nontender, no hepatosplenomegaly Musculoskeletal: no cyanosis or clubbing, extremities motor strength 5/5 Skin: no rashes, warm and dry Neurologic: PERRL, EOMI, accommodation nl, no face palsy, no dysarthria awake; + abnormal touch/pain/proprioception (Left upper extremity paresthesias) Speech / Cognition: normal speech Psychiatric: Orientation: alert and oriented x 3 Affect: + depressed affect and + tearful affect Results & Data Vital Signs (Past 12 Hours) Vital Signs Temp Pulse Pulse Resp BP BP Pulse Ox 06/27/19 02:41 57 L 18 176/98 H 97 06/27/19 02:04 57 L 18 176/98 H 97 06/27/19 01:17 53 L 20 151/91 H 96 06/27/19 00:27 51 L 20 164/84 H 97 06/26/19 23:44 53 L 18 174/95 H 98 06/26/19 22:26 58 L 18 133/88 98 06/26/19 21:26 98 06/26/19 21:24 58 L 18 179/93 H 97 06/26/19 20:58 36.6 C 72 18 192/121 H 99 Code Status & VTE Plan Code Status Full code VTE Prophylaxis Plan VTE Prophylaxis will be ordered: Yes Supervising Physician Co-Signing Physician Notes Patient seen and examined, chart reviewed, case discussed with Dr. Newton and I agree with his assessment and plan as documented above. Briefly, patient is a 63yo C female presenting with vertigo, heaviness in left hand. She has longstanding history of vertigo. This episode is more severe, associated with headache, elevated BP as well On exam she is afebrile, mildly hypertensive otherwise HD stable, NAD, resting comfortably in bed HEENT - NC/AT, PERRL, MMM, neck supple Heart - +S1/S2, regular, no m/r/g Lungs - CTA Abd - +BS, soft, NT/ND Ext - no edema Neuro - no neurologic deficits Labs and images reviewed Assessment/Plan: -Concern for vertigo vs TIA vs Meniere's -Imaging performed, negative -BP management -Remainder of plan as above PG Care Time/CCT Total # of Minutes Spent Total Time Spent with Patient: Total time spent is greater than 50% in coordination of care (as documented) at patient's floor/unit and/or counseling patient: Resident Activity Tracking Resident Involvement: Resident Care Provided Care Provided: Adult Hospital Medicine (1) Headache Headache chronicity pattern: acute headache Headache type: unspecified Intractability: not intractable Qualified Code(s): R51 - Headache
[2019-06-27] MEDS ORDERED: LORazepam 0.5 MG/1 ML VIAL IV PRN (04:23)
[2019-06-27] MEDS ORDERED: POLYETHYLENE (MIRALAX) 17 GM PACK PO PRN (04:23)
[2019-06-27] MEDS ORDERED: DiphenhydrAMINE HCL 50 MG/ML VIAL IV PRN (04:23)
[2019-06-27] MEDS ORDERED: ONDANSETRON INJ 2 MG/ML 2 ML VIAL IV PRN (04:23)
[2019-06-27] MEDS ORDERED: PHARMACIST DISCHARGE MED REC CONSULT PRN (04:23)
[2019-06-27] MEDS ORDERED: ACETAMINOPHEN 325 MG TAB PO PRN (04:23)
[2019-06-27] MEDS ORDERED: MECLIZINE HCL 25 MG TAB PO PRN (04:56)
--- NOTE | 2019-06-27 06:03 | Emergency Department Note ---
Entered by Matthew Sabillon acting as a scribe for Vinny Stack MD ED Provider Note Name: Reema Kruse Age: 63, female Arrives Via: Walk in Informant: Patient CC: Vertigo HPI: The patient is a 63 year old female who presents to the emergency department with complaints of worsening vertigo beginning this morning. The patient states that she has a history of vertigo and frequent headaches. She notes that she woke up this morning with a headache. She reports that her headache is located in the back of her head and radiates into her right scientologist. The patient states that her headaches are usually in this location. She notes that she took 3 ibuprofen with mild relief of her headache. She reports that she then went to work and became nauseous, and she states that everything started spinning at that time. She also complains of mild left arm weakness, neck tightness, and shoulder tightness. She denies any fever, vomiting, CP, SOB, abd ominal pain, and leg swelling. She also denies any recent falls, head injury, and chemical exposure. She notes that she has a family history of blood clots. She denies any personal history of strokes. She reports that she also has a history of TMJ. The patient states that she does not smoke cigarettes. ROS: See above HPI for pertinent positives & negatives. A total of 10 systems reviewed and were otherwise negative. Past Medical History: TMJ syndrome, history of vertigo, GERD, hyperlipidemia, hypertension, hypothyroidism, and anemia Past Surgical History: Total knee arthroplasty Family History: Cancer, hypertension, stroke, MS, blood clots Social History: , lives with family, Home Medications: Please see medication list Allergies: none Physical: Vitals: BP 164/84, Pulse 51, Resp 20, Temp 97.9, O2 Sat 97 Exam: GENERAL: Patient is very uncomfortable and dehydrated appearing, in no acute distress. Keeps eyes closed throughout examination. EYES: No scleral icterus, unremarkable pupils. Bilateral horizontal nystagmus. ENT: Mucous membranes dry, no nasal congestion. NECK: No masses appreciated, no meningismus, trachea is midline. RESPIRATORY: No dyspnea. Clear to auscultation and equal bilaterally. No wheeze, no rhonchi. CARDIOVASCULAR: Regular rate and rhythm. No murmurs, rubs, gallops appreciated. GASTROINTESTINAL: Abdomen soft, non-tender, no peritonitis. Bowel sounds positive. No masses appreciated. BACK: No midline tenderness, no CVA tenderness EXTREMITIES: Normal motion all extremities, no cyanosis, no edema. NEUROLOGIC: Alert and oriented, no acute motor or sensory deficits, no focal weakness, cranial nerves grossly intact. NIH 0. SKIN: No rash, no jaundice, no diaphoresis. ED Course: Prior Medical Record, Triage/Nursing Notes, Medications, Allergies reviewed by Me 2315: The patient was evaluated in room C3. A complete history and physical exam was performed. 2355: I reevaluated and updated the patient. She is quite somnolent. She is nauseous and states that the room is spinning. 0036: I rechecked the patient. She is feeling much better, though her symptoms return with sitting up. She states that she has no symptoms while sitting. We are awaiting CT results. 0150: I rechecked the patient. She states that her left hand is still not feeling right. 0211: Upon reevaluation, the patient is stable. I discussed the findings and the treatment plan with the patient. She expresses agreement and understanding. I spoke with Dr. Szymanski of the [facility] Hospitalist Service. The patient will be evaluated for further management. Vital Signs: reviewed and remarkable for HTN Labs: Reviewed and remarkable for normal Interventions: saline lock, valium 5mg IV, nss bolus, Asa 324mg Po Imaging: Radiology results as stated below per my review and the radiologist's interpretation: CT HEAD: No comparisons. No acute intracranial hemorrhage, transcortical infarction or mass. No acute fractures. Visualized paranasal sinuses and mastoids are clear. Radiologist: Frank Gutiérrez MD. EKG: Per My Interpretation: Indication Vertigo: NSR 61 bpm qtc 453, without ectopy nor ischemia. When compared to 06/14/14 EKG there are more consistent findings with HTN. Consults: 0211: I reviewed the patient's case with Dr. Szymanski - Hospitalist, [facility]. She will evaluate the patient for further management. Blood pressure: Elevated - Will be evaluated by hospitalist. Disposition: Hospialization Differentials: Differential diagnoses include Benign positional vertigo, Dehydration, Hypovolemia, Anemia, Tumor, Infection, Hypoglycemia, Electrolyte abnormalities, Cardiac sources, Intracerebral event, Toxicologic, Neurologic, as well as others were entertained. Medical Decision Making: Pleasant female arrives with 12ish hours of headache, vertigo and left arm paresthesias. On my evaluation NIH 0 and given prolonged symptoms not TPA candidate. Sent for CT reveals no acute findings (I will note that prolonged time awaiting result). She has resolution of headache and vertigo with nss bolus and valium. Still notes some paresthesias left arm. No indication for emergent CTA given resolution of other symptoms and not consistent with large vessel occlusion. She was given asa for further stroke prevention. No evidence ACS, infection nor electrolyte dysfunction. Impression: Vertigo, headache, left arm paresthesias Vinny Stack MD The scribe's documentation has been prepared under my direction and personally reviewed by me in its entirety. I confirm that the note above accurately reflects all work, treatment, procedures, and medical decision making performed by me. Impression & Plan Vertigo, Headache, Paresthesia of left arm Past Med/Surg History Medical History TMJ syndrome History of vertigo History of long-term treatment with high-risk medication ETD (eustachian tube dysfunction) GERD (gastroesophageal reflux disease) (Chronic) Hyperlipidemia (Chronic) Hypertension (Chronic) Hypothyroidism (Chronic) Anemia Insomnia Surgical History Hx of total knee arthroplasty Family History Mother Rheumatoid arthritis Hypertension Stroke Cancer Father Hypertension Stroke Cancer FH: deafness or hearing loss Family/Other Stroke Other Family history of blood clots Social History Preferred Language: Micronesian Communication Ability: Effective Visual Impairment: No Limitations Hearing Ability: Normal Promotor Group Ticket Sales Required: No Beliefs That Will Affect Care: None marital status: Current Living Situation: Spouse current occupational status: employed Feels Safe at Home: Yes Safety Concerns: Feels Safe At This Time Smoking Status: Never smoker Do You Dip or Chew Tobacco: No ; Hx Alcohol Use: Yes Alcohol type: beer, wine and hard liquor Hx Substance Use: No Childhood Exposure to Second-Hand Smoke: No Dental Care, Regularly: Yes Physical Activity Frequency: 1-2 Times per Week Seatbelt Use: always Sunscreen Use: Yes Results & Data Vital Signs Vital Signs - 24 hr 06/26/19 20:58 06/26/19 21:24 06/26/19 21:26 Temperature 36.6 C Temperature Source Oral Sepsis Recent Fever Within 48 Hours No Sepsis Action Taken by Nursing No Action Required Pulse Rate 72 Pulse Rate [Right Finger] 58 L Respiratory Rate 18 18 Respiratory Effort / Characteristics Non-Labored Spontaneous Respiratory Depth Normal Respiratory Pattern Regular Blood Pressure 192/121 H Blood Pressure [Left Arm] 179/93 H Blood Pressure Mean 144 Blood Pressure Mean [Left Arm] 121 Blood Pressure Position Sitting Pulse Oximetry 99 97 98 Oxygen Delivery Method Room Air Room Air Room Air 06/26/19 22:26 06/26/19 23:44 06/27/19 00:27 Temperature Temperature Source Sepsis Recent Fever Within 48 Hours Sepsis Action Taken by Nursing Pulse Rate Pulse Rate [Right Finger] 58 L 53 L 51 L Respiratory Rate 18 18 20 Respiratory Effort / Characteristics Respiratory Depth Respiratory Pattern Blood Pressure Blood Pressure [Left Arm] 133/88 174/95 H 164/84 H Blood Pressure Mean Blood Pressure Mean [Left Arm] 103 121 110 Blood Pressure Position Pulse Oximetry 98 98 97 Oxygen Delivery Method Room Air Room Air Room Air 06/27/19 01:17 06/27/19 02:04 06/27/19 02:41 Temperature Temperature Source Sepsis Recent Fever Within 48 Hours Sepsis Action Taken by Nursing Pulse Rate Pulse Rate [Right Finger] 53 L 57 L 57 L Respiratory Rate 20 18 18 Respiratory Effort / Characteristics Respiratory Depth Respiratory Pattern Blood Pressure Blood Pressure [Left Arm] 151/91 H 176/98 H 176/98 H Blood Pressure Mean Blood Pressure Mean [Left Arm] 111 124 124 Blood Pressure Position Pulse Oximetry 96 97 97 Oxygen Delivery Method Room Air Room Air Room Air Home Medications Current Medication List: was personally reviewed by me Laboratory Data Attestation: I reviewed the patient's lab results. Result diagrams: 06/26/19 21:12 06/26/19 21:12 Lab Results 06/26/19 06/26/19 06/27/19 Range/Units 21:12 21:12 02:26 WBC 6.37 (4.8-10.8) K/uL RBC 4.55 (4.2-5.4) M/uL Hgb 14.3 (12.0-16.0) g/dL Hct 41.4 (37-47) % MCV 91.0 (80-100) fL MCH 31.4 (25-34) pg MCHC 34.5 (32-36) g/dL RDW Std Deviation 44.1 (36.4-46.3) fL RDW Coeff of Juan 13.4 (11.5-14.5) % Plt Count 289 (130-400) K/uL MPV 10.0 (7.4-10.4) fL Immature Gran % (Auto) 0.2 % Neut % (Auto) 51.1 % Lymph % (Auto) 33.0 % Casey % (Auto) 10.8 % Eos % (Auto) 4.1 % Baso % (Auto) 0.8 % Immature Gran # (Auto) 0.01 (0.00-0.02) K/uL Neut # (Auto) 3.26 (1.4-6.5) K/uL Lymph # (Auto) 2.10 (1.2-3.4) K/uL Casey # (Auto) 0.69 H (0.11-0.59) K/uL Eos # (Auto) 0.26 (0-0.5) K/uL Baso # (Auto) 0.05 (0-0.2) K/uL Sodium 132 L (136-145) mmol/L Potassium 3.8 (3.5-5.1) mmol/L Chloride 97 L (98-107) mmol/L Carbon Dioxide 26 (21-32) mmol/L Anion Gap 9.0 (3-11) BUN 13 (7-18) mg/dl Creatinine 0.76 (0.6-1.2) mg/dl Est Cr Clr Drug Dosing Not Reportable Est GFR ( Amer) 96.8 Est GFR (Non-Af Amer) 83.5 BUN/Creatinine Ratio 16.5 (10-20) Glucose 96 (70-99) mg/dl Calcium 9.4 (8.5-10.1) mg/dl Total Bilirubin 0.5 (0.2-1) mg/dl AST 20 (15-37) U/L ALT 30 (12-78) U/L Alkaline Phosphatase 102 (45-117) U/L Total Protein 6.9 (6.4-8.2) gm/dl Albumin 4.3 (3.4-5.0) gm/dl Globulin 2.6 (2.5-4.0) gm/dl Albumin/Globulin Ratio 1.6 (0.9-2) TSH 1.990 (0.300-4.500) uIu/ml Urine Color Yellow Urine Appearance Clear (Clear) Urine pH 6.5 (4.5-7.5) Ur Specific [place] 1.018 (1.000-1.030) Urine Protein Negative (Negative) Urine Glucose (UA) Negative (Negative) Urine Ketones Negative (Negative) Urine Blood Negative (Negative) Urine Nitrite Negative (Negative) Urine Bilirubin Negative (Negative) Urine Urobilinogen Negative (Negative) Ur Leukocyte Esterase Trace H (Negative) Urine WBC (Auto) 1-5 (0-5) /hpf Urine RBC (Auto) 5-10 H (0-4) /hpf U Hyaline Cast (Auto) 1-5 (0-5) /lpf U Epithel Cells (Auto) 10-20 H (0-5) /lpf Urine Bacteria (Auto) Negative (Negative) Administered Medications Lorazepam (Ativan) 0.5 mg in 1 mls @ 1 mls/min IV Q4H PRN PRN Reason: Vertigo Stop: 07/27/19 04:22 Last Admin: 06/27/19 05:07 Dose: 1 mls/min Documented by: [id number] Discontinued Medications Aspirin (Aspirin Chew) 324 mg PO NOW STA Stop: 06/27/19 02:05 Last Admin: 06/27/19 02:28 Dose: 324 mg Documented by: [id number] Diazepam (Valium) 5 mg IV NOW STA Stop: 06/26/19 23:24 Last Admin: 06/26/19 23:41 Dose: 5 mg Documented by: [id number] Sodium Chloride (Nss 1000ml) 1,000 mls @ 999 mls/hr IV .Q1H1M ONE Stop: 06/27/19 00:23 Last Infusion: 06/27/19 01:19 Dose: 0 mls/hr Documented by: [id number] Admin: 06/26/19 23:41 Dose: 999 mls/hr Documented by: [id number] Discharge Plan Visit Data *Final* Discharge Date/Time: 06/27/19 04:05 Chief Complaint: Hypertension Stated Complaint: HYPERTENSION, DIZZY, NAUSEA ED Provider: Vinny Stack Discharge Problem: Vertigo, Headache, Paresthesia of left arm Patient Disposition: Admitted As Inpatient Discharge Instructions Interventions: ED Discharge Assessment Last Done: 06/27/19 04:05 Discharge Problem: Headache Qualifiers: Headache type: unspecified Headache chronicity pattern: acute headache Intractability: not intractable Qualified Code(s): R51 - Headache The scribe's documentation has been prepared under my direction and personally reviewed by me in its entirety. I confirm that the note above accurately reflects all work, treatment, procedures, and medical decision making performed by me.
[2019-06-27] MEDS: LEVOTHYROXINE SODIUM 125 MCG TABLET PO SCH (06:10)
[2019-06-27] MEDS: SODIUM CHLORIDE 0.9% 1000ML 1,000 ML IV SCH ×2 (06:10→14:27)
[2019-06-27 07:01] LABS: Basophils # (auto) 0.02 K/uL (0-0.2); Basophils % (auto) 0.4 %; Eosinophils % (auto) 3.6 %; Hematocrit (blood only) 38.6 % (37-47); Hemoglobin 13.3 g/dL (12.0-16.0); Immature Granulocytes # (auto) 0.01 K/uL (0.00-0.02); Immature Granulocytes % (auto) 0.2 %; Lymphocytes # (auto) 1.61 K/uL (1.2-3.4); Mean Corpuscular Hemoglobin 31.5 pg (25-34); Mean Corpuscular Hgb Conc 34.5 g/dL (32-36); Mean Corpuscular Volume 91.5 fL (80-100); Mean Platelet Volume 9.2 fL (7.4-10.4); Monocytes # (auto) 0.54 K/uL (0.11-0.59); Monocytes % (auto) 9.7 %; Neutrophils # (auto) 3.18 K/uL (1.4-6.5); Neutrophils % (auto) 57.1 %; Platelet Count 232 K/uL (130-400); RDW Coefficient of Variation 13.3 % (11.5-14.5); RDW Standard Deviation 44.5 fL (36.4-46.3); Red Blood Count 4.22 M/uL (4.2-5.4); White Blood Count 5.56 K/uL (4.8-10.8)
--- NOTE | 2019-06-27 07:02 | CT Scan Report ---
CT head/brain wo con CLINICAL HISTORY: 63 years-old Female presenting with left sided weakness, sudden onset vertigo. TECHNIQUE: Multidetector CT imaging of the head was performed without the use of intravenous contrast . IV contrast: None. One or more dose lowering techniques were used consistent with the principles of ALARA (as low as reasonably achievable), including automatic exposure control, mA or kV adjustment t o individual patient size, and/or use of iterative reconstruction. COMPARISON: None. CT DOSE (mGy.cm): The estimated cumulative dose is 537.48 mGy.cm. FINDINGS: Staffing Program Manager topogram: Unremarkable. Ventricles and sulci normal in size. No hemorrhage. Brain parenchyma normal in appearance with preser kenia hurst-white differentiation. No acute territorial infarct. No mass effect or midline shift. No ext ra-axial fluid collection. Paranasal sinuses and mastoid air cells clear. Calvarium intact. IMPRESSION: 1. No acute intracranial abnormality. Electronically signed by: Yaron Moya M.D. 06/27/2019 7:01 AM
[2019-06-27 07:27] LABS: Estimated Average Glucose 126 mg/dl
[2019-06-27 07:29] LABS: BUN Creatinine Ratio 16.1 (10-20); Calcium 8.6 mg/dl (8.5-10.1); Creatinine Clr Calc Pharmacy 83.5 ml/min; Est GFR (African American) 105.1; Est GFR (Non-African American) 90.7; Potassium 3.8 mmol/L (3.5-5.1)
--- NOTE | 2019-06-27 07:39 | Magnetic Resonance Report ---
MR brain wo con CLINICAL HISTORY: 63 years-old Female presenting with stroke-like symptoms, long-standing history of vertigo, sudden onset worsening. TECHNIQUE: Multisequence, multiplanar MR imaging of the brain was performed without the use of intrav enous contrast. IV contrast: None. COMPARISON: Noncontrast CT head on 06/27/2019. FINDINGS: Localizer images: Unremarkable. Small lipoma may be present in the left frontal bone. Incidental note made of an empty sella, which can be a normal variant. Ventricles and sulci normal in size. No mass effect or midline shift. No restricted diffusion or hemorrhage. Brain parenchyma danish l in appearance with preserved hurst-white differentiation. No extra-axial fluid collection. T2 skull base flow voids preserved. IMPRESSION: 1. No acute intracranial abnormality. Electronically signed by: Yaron Moya M.D. 06/27/2019 7:38 AM
[2019-06-27] MEDS ORDERED: INFLUENZA ADMINISTRATION CHARGE ONE (08:00)
[2019-06-27] MEDS ORDERED: INFLUENZA VIRUS QUAD VACCINE 0.5 ML SYR IM ONE (08:00)
[2019-06-27] MEDS: TRIAMTERENE/HCTZ 37.5/25MG CAP PO SCH (08:12)
[2019-06-27] MEDS ORDERED: ASPIRIN 81 MG ECTAB PO SCH (09:00)
--- NOTE | 2019-06-27 09:54 | Neurology Consultation ---
Date of Consultation June 27, 2019 Assessment & Plan (1) Vertigo: This patient has been experiencing an exacerbation of her chronic vertigo which is been problematic since returning from a cruise this past December. She has been complaining of some associated headache as well. She has an intact neurological examination and unremarkable neuroimaging evaluation thus far. She had a normal VNG completed this past February as well. Although she may have migraine associated vertigo I am unable to exclude Mnire's disease or possibly vertebrobasilar insufficiency. I agree with obtaining a CT angiogram of the head and neck as ordered. As indicated in the history, her blood pressure has been rather elevated and to some extent, her symptoms could be related to hypertensive urgency. Going forward, she will likely need ongoing management of hypertension. It may be worthwhile to start a calcium channel yvette such as verapamil which may be helpful for both hypertension and migraine prevention. To some extent, drop related stressors may also factor into her persistent clinical symptoms. She has informed me that she plans to retire in 1 to 2 months. Perhaps, with decreased external stressors, her symptoms will further improve. I will make further recommendations if necessary pending completion of the CT angiogram. Please contact me if I may be of further assistance. History of Present Illness Reason for Consultation: Paresthesia left hand, vertigo Requesting Physician: Asif Newton MD Attending Physician: Katie Rodriguez MD History of Present Illness The patient is a 63-year-old female with a chief complaint of vertigo which he describes as a feeling of disequilibrium and an undulating movement of the ground which is been present since she returned from a cruise this past December. She denies any specific triggers for this abnormal perception of movement. She does complain of associated headache which has been intermittent and primarily frontal in location. She also complains of some associated nausea as well as episodic blurry vision. The patient also reports some episodic paresthesias to the left hand that began the day prior to her presentation. This issue has resolved. The patient was assessed at [facility] for her vertigo this past February and had an unremarkable VNG. Her vertigo has not been responding to treatment including meclizine and scopolamine. She has been significantly hypertensive in the context of this current admission with a blood pressure of 192/121 at the time of presentation. CT of the head and MRI of the brain are unremarkable. Patient does complain of significant job-related stressors. She plans to retire in the next 1 to 2 months. Allergies Allergy/AdvReac Type Severity Reaction Status Date / Time No Known Allergies Allergy Verified 06/26/19 21:48 Home Medications Home Medications Medication Instructions Recorded Confirmed Type triamterene 37.5 1 cap PO DAILY #90 cap 03/06/19 06/26/19 Rx mg-hydrochlorothiazide 25 mg capsule ferrous sulfate 325 mg (65 mg 325 mg PO 4XWK tab 03/28/19 06/26/19 History iron) tablet lorazepam 0.5 mg tablet 0.5 mg PO HS #30 tab 03/28/19 06/26/19 History meclizine 25 mg tablet 25 mg PO DIRECTED PRN tab 03/28/19 06/26/19 History levothyroxine 125 mcg capsule 125 mcg PO DAILY #90 cap 04/04/19 06/26/19 Rx Fiber Con 1 tab PO DAILY 06/26/19 06/26/19 History Olga Lidia Colace 1 tab PO DAILY 06/26/19 06/26/19 History cholecalciferol (vitamin D3) 5,000 unit PO DAILY 06/26/19 06/26/19 History [Vitamin D3] clobetasol 1 appln TOP 2XWK 06/26/19 06/26/19 History docusate sodium [Colace] 100 mg PO DAILY 06/26/19 06/26/19 History nortriptyline 20 mg PO 4XWK 06/26/19 06/26/19 History pravastatin 20 mg PO 3XWK 06/26/19 06/26/19 History Patient History Medical History TMJ syndrome History of vertigo History of long-term treatment with high-risk medication ETD (eustachian tube dysfunction) GERD (gastroesophageal reflux disease) (Chronic) Hyperlipidemia (Chronic) Hypertension (Chronic) Hypothyroidism (Chronic) Anemia Insomnia Surgical History Hx of total knee arthroplasty Family History Mother Rheumatoid arthritis Hypertension Stroke Cancer Father Hypertension Stroke Cancer FH: deafness or hearing loss Family/Other Stroke Other Family history of blood clots Social History Preferred Language: Maltese Communication Ability: Effective Visual Impairment: No Limitations Hearing Ability: Normal Orthopedic Specialist Required: No Beliefs That Will Affect Care: None marital status: Current Living Situation: Spouse current occupational status: employed Feels Safe at Home: Yes Safety Concerns: Feels Safe At This Time Smoking Status: Never smoker Do You Dip or Chew Tobacco: No ; Hx Alcohol Use: Yes Alcohol type: beer, wine and hard liquor Hx Substance Use: No Childhood Exposure to Second-Hand Smoke: No Dental Care, Regularly: Yes Physical Activity Frequency: 1-2 Times per Week Seatbelt Use: always Sunscreen Use: Yes Review of Systems Constitutional: no fever and no chills Eyes: no blind spots and no diplopia Ear, Nose, Mouth, Throat: + dizziness; no hearing loss Respiratory: no cough and no dyspnea Cardiovascular: no chest pain and no palpitations Gastrointestinal: no nausea and no vomiting Genitourinary: no urinary incontinence Musculoskeletal: no neck pain and no myalgia Integumentary: no rash and no lesions Neurologic: as per Subjective / HPI, + paresthesia, + dizziness and + headache(s); no localized weakness, no loss of sensation, no tremor(s), no seizure-like activity, no abnormal speech, no confusion and no memory loss Psychiatric: no depression and no anxiety Hematologic / Lymphatic: no easy bleeding and no easy bruising Physical Exam Physical Exam: The patient is a well-developed, well-nourished elderly female. She is alert and fully oriented. Recent and remote memory intact. Attention and concentration normal. Patient exhibits a normal spontaneous speech pattern as well as an age-appropriate fund of knowledge. Normal comprehension of vocabulary. Visual garg full to confrontation. Visual acuity normal. Pupils equal round reactive to light and accommodation. Eye movements normal. There is no nystagmus, ptosis, or ophthalmoplegia. Facial sensation intact. There is no facial droop or weakness. Hearing intact. Palate elevates to midline. Shoulder shrug intact. Tongue protrudes to midline. Sensation intact to all modalities in all 4 limbs. Deep tendon reflexes intact and symmetrical for the arms and legs. Plantar responses downgoing bilaterally. There is no dysdiadochokinesia or dysmetria [id number] or [id number] bilaterally. Ophthalmoscopic examination reveals normal-appearing optic disks and posterior segments. No papilledema or hemorrhages. Carotid pulses normal bilaterally, no bruits to auscultation. Gait and station normal. Patient exhibits normal muscle strength and tone for all 4 limbs. No atrophy. No abnormal movements. Results & Data Vital Signs (Past 12 Hours) Vital Signs Temp Pulse Pulse Resp BP BP Pulse Ox 06/27/19 07:44 36.8 C 61 18 178/93 H 97 06/27/19 06:16 165/93 H 06/27/19 04:38 58 L 06/27/19 04:23 36.4 C L 52 L 16 178/94 H 98 06/27/19 03:42 52 L 18 170/89 H 98 06/27/19 02:41 57 L 18 176/98 H 97 06/27/19 02:04 57 L 18 176/98 H 97 06/27/19 01:17 53 L 20 151/91 H 96 06/27/19 00:27 51 L 20 164/84 H 97 06/26/19 23:44 53 L 18 174/95 H 98 06/26/19 22:26 58 L 18 133/88 98 Laboratory Results WBC 5.56, hemoglobin 13.3, hematocrit 38.6, platelet count 232, sodium 133, potassium 3.8, BUN 11, creatinine 0.71, glucose 94, hemoglobin A1c 6.0, calcium 8.6, triglycerides 216, cholesterol 212, LDL 121, VLDL 43, HDL [address] of the head completed yesterday was negative for hemorrhage or acute proc ess. I reviewed the images as well as the radiologist interpretation of this test. A brain MRI completed today was negative for acute or subacute infarct. No parenchymal abnormality. I reviewed the images as well as the radiologist interpretation of this test. Electrocardiogram reveals normal sinus rhythm, 61 bpm.
[2019-06-27] MEDS ORDERED: OPTIRAY 320 125ml IV PRN (09:59)
--- NOTE | 2019-06-27 10:20 | CT Scan Report ---
CT angio head w con HISTORY: Mental status change TIA TECHNIQUE: Multiaxial CT angiography of the head was performed IV contrast: None. Maximum intensit y projection images were also obtained. A dose lowering technique was utilized adhering to the princ iplJourdan. COMPARISON: None. FINDINGS: There is no mass, hematoma, midline shift, or acute infarct. Visualized intracranial information technology internship al carotid arteries, distal vertebral arteries, and basilar artery are widely patent. There is no sig nificant stenosis, occlusion, or aneurysm seen within the bilateral ACAs, MCAs, or dermatology teacher. IMPRESSION: No significant stenosis, occlusion, or aneurysm within the [place]. The above report was generated using voice recognition software. It may contain grammatical, syntax or spelling errors. Electronically signed by: Jase Esparza M.D. 06/27/2019 10:19 AM
--- NOTE | 2019-06-27 10:23 | CT Scan Report ---
CT angio neck with con CLINICAL HISTORY: 63 years-old Female presenting with TIA. TECHNIQUE: Multidetector CT angiography of the neck was performed after the administration of intrave nous contrast. 3-D volumetric and/or maximum intensity projection (MIP) images were subsequently jese nstructed for review. IV contrast: 120 mL of Optiray 320. One or more dose lowering techniques were u sed consistent with the principles of ALARA (as low as reasonably achievable), including automatic ex posure control, mA or kV adjustment to individual patient size, and/or use of iterative reconstructio n. Stenosis measurements were based on NASCET-like criteria (distal lumen diameter as the denominator for stenosis measurement). COMPARISON: 05/12/2015. CT DOSE (mGy.cm): The estimated cumulative dose is 632.08. FINDINGS: Educational Interpreter topogram: Unremarkable. Aortic arch: Normal three-vessel aortic arch with patent origins of the branch vessels. Innominate artery: Patent. Right subclavian artery: Patent. Right common carotid artery: Patent. Right internal and external carotid arteries: Right carotid bifurcation patent. Right internal and ex ternal carotid arteries widely patent. Left common carotid artery: Patent. Left internal and external carotid arteries: Calcified and noncalcified atherosclerotic plaque at the left carotid bifurcation without significant stenosis of the origin of the internal carotid artery. External carotid artery widely patent and unaffected by plaque at the origin. Left subclavian artery: Patent. Vertebral arteries: Codominant vertebral arteries. Origins and courses of the bilateral vertebral art eries patent. Other: Limited intracranial evaluation within normal limits. Soft tissues of the neck normal allowing for the phase of contrast. Few subcentimeter nonspecific mediastinal lymph nodes. Degenerative sandoval es of the cervical spine. Lung apices clear. IMPRESSION: 1. No evidence of dissection, focal vessel occlusion, or significant stenosis of the cervical arteri es. Electronically signed by: Yaron Moya M.D. 06/27/2019 10:22 AM
--- NOTE | 2019-06-27 20:28 | History & Physical Bridge Note ---
Date of Service June 27, 2019 History & Physical Bridge Note I have examined the patient, reviewed the History & Physical and in the interval since the performance of the History & Physical I have noted the following changes of clinical significance: Pt seen later in the evening. Is tolerating po, making plenty of urine. She describes years of vertigo, then was diagnosed with Mal de Debarquement Syndrome the summer after returning from a cruise where she always feels like she is on a ship even after being on dry land. 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 She lost her son in a tragic accident 3 years ago and started having posterior headaches once weekly on average since that time she relates to stress. Tingling in her left hand is improved now, no weakness. BPs still elevated but improved from previous. Discussed her case with Dr. Mcallister today. Reviewed CTA head/neck (both negative), and ECHO with PFO but otherwise normal. Labs/Rads reviewed, MRI brain no stroke -Could be tension headaches vs basilar migraine -trial of verapmil 80mg po tid as suggested by Neuro -dc IVFs -check BMP in AM for hyponatremia PT/OT consults
[2019-06-27] MEDS: VERAPAMIL HCL 40 MG TAB PO SCH (20:55)
[2019-06-27] MEDS ORDERED: LORazepam 0.5 MG TAB PO SCH (21:00)
[2019-06-28] MEDS: LEVOTHYROXINE SODIUM 125 MCG TABLET PO SCH (06:11)
[2019-06-28 07:53] LABS: BUN Creatinine Ratio 17.5 (10-20); Calcium 8.9 mg/dl (8.5-10.1); Creatinine Clr Calc Pharmacy 72.1 ml/min; Est GFR (African American) 88.3; Est GFR (Non-African American) 76.2
[2019-06-28] MEDS: TRIAMTERENE/HCTZ 37.5/25MG CAP PO SCH (08:50)
[2019-06-28] MEDS: VERAPAMIL HCL 40 MG TAB PO SCH ×2 (08:50→13:56)
[2019-06-28] MEDS ORDERED: PRAVASTATIN SOD 20 MG TAB PO SCH (09:00)
[2019-06-28] MEDS ORDERED: NORTRIPTYLINE HCL 10 MG CAP PO SCH (09:00)
[2019-06-28 11:45] VITALS: BP 142/85; PULSE 62; TEMP 99.1; O2SAT 93
--- NOTE | 2019-06-28 14:50 | Discharge Summary ---
Date of Service June 28, 2019 Admission HPI Per Admitting Provider 63-year-old female with a past medical history of hypertension, hyperlipidemia, hypothyroidism, GERD, depression presents with headache, vertigo and left hand paresthesia. The symptoms began the previous morning and worsened throughout the workday. Patient went home from work early, took ibuprofen and decided later to go to the emergency room as her symptoms persisted. She describes headache over her right presybeterian. She describes having a past medical history of vertigo and has had more episodes recently since going on a cruise this past spring. She describes nausea, but denies vomiting/diarrhea/abdominal pain. She denies any URI symptoms including sore throat, cough, runny nose. While she describes having tingling and numbness in her left hand, she denies any weakness or other focal neuro deficits. She describes a family history of stroke. 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 She reports increased stress in her life related to personal loss. Principal Diagnosis Vertigo, complex migraine Discharge Exam Constitutional WD/WN, vitals as above Eyes PERRL, conjunctivae normal, anicteric sclerae no nystagmus ENMT external ear and nose normal, oropharynx normal Neck trachea midline, no thyromegaly Respiratory normal respiratory effort, lungs clear to auscultation Cardiovascular RRR, no murmur, no edema Gastrointestinal (Abdomen) normal bowel sounds, soft, nontender, no hepatosplenomegaly Musculoskeletal Extremities: extremities normal to inspection; no cyanosis and no clubbing Skin no rashes, warm and dry Neurologic CN's II-XI intact bilaterally, deep tendon reflexes 2+ bilaterally, moves all ex tremities and awake; no focal motor deficits Motor/Sensory: no sensory deficit Psychiatric A+Ox3, euthymic affect Discharge Data Allergies Allergy/AdvReac Type Severity Reaction Status Date / Time No Known Allergies Allergy Verified 07/04/19 14:22 Consultations 06/27/19 02:09 ED Decision to Admit Stat 06/27/19 04:23 Consult Case Management - Discharge Planning Routine Consult Case Management - Discharge Planning Routine Consult Neurology Routine Procedures Performed ECHO Ordered Studies 06/26/19 23:23 CT head/brain wo con Urgent 06/27/19 04:23 MR brain wo con Routine 06/27/19 08:47 CT angio head w con Routine CT angio neck with con Routine Hospital Course (1) Vertigo: This pt is a 63-year-old female with a past medical history of hypertension, hyperlipidemia, hypothyroidism, GERD, depression presents with headache, vertigo and left hand paresthesia. Admission for stroke rule out. Intractable vertigo, left upper extremity paresthesia-paresthesia resolved at time of discharge. Vertigo was improved but remained, as did a mild residual headache CT head negative,MRI brain without contrast negative for CVA but contrast would have been better to look for more subtle lesions CTA head/neck negative for stenoses or aneurysm, rules out vertebro-basilar insufficiency BPs also extremely high on admission and may have contributed Could be migraine related--> started verapamil and tolerating well; this will also help her uncontrolled HTN Is now able to ambulate safely, tolerating po, ready for discharge to home Continue pravastatin, triamterene-hctz, and verapamil started 80mg po tid PRN Lorazepam, Benadryl for vertigo. Zofran for nausea were given -advised evaluation for acupuncture for headaches, vertigo Hyponatremia-Na+ 132 on admission, could be due to dehydration, poor po intake in setting of taking thiazide diuretic Patient avoid salt, says that exacerbates vertigo Normal saline 110 cc/h was gievn and improved to 134 -consider stopping HCTZ if does not improve as outpt Hypothyroidism-TSH here normal at 1.9 Continue levothyroxine Depression/anxiety/insomnia Continue nortriptyline Lorazepam as needed CODE STATUSfull Dietheart healthy DVT prophylaxisSCDs, ambulation Dispo-stable for dc to home (2) Headache: (3) Paresthesia of left arm: (4) Hyperlipidemia: (5) Hypertension: (6) Hypothyroidism: (7) Grief at loss of child: With loss of son 3 years ago, causes her continued sadness. Total Time Total Time Spent Total Time Spent (In Minutes): >30 min Total Time Includes: Examination of the Patient, Discharge Planning, Medication Reconciliation and Communication With Other Providers (Neurology) Discharge Plan Discharge Items Patient Disposition: Home - Self-Care Reason For Visit: INTRACTABLE VERTIGO, STROKE WORKUP Discharge Diagnosis: Vertigo, headache, hypertensive urgency Condition on Discharge: Good Activity: Resume your previous activity Non-emergency contact: Primary Care Provider and Neurologist Call non-emergency contact if: you have any medication questions, your symptoms worsen, your pain is not controlled, your pain is worsening, your pain is unusual for you and your pain is concerning for you Follow-up/Referrals: Corky Mcallister MD [Physician] - 07/10/19 9:45 am (Please, follow up at [facility] Office with Dr. Mcallister's associate, Dr. Latosha Saha, on WednesdayJuly 10 at 10:00 (arrive 9:45 am). *If you need to change this appointment, call the office at [phone].) Manas Fulton MD [Primary Care Provider] - 07/04/19 2:30 pm (Please, follow up at Dr. Fulton's office with his associate, Chasidy Corbett PA-C, on WednesdayJuly 04 at 2:30 pm. *If you need to change this appointment, call the office at [phone]. ) Diet: Heart Healthy Addtl Attending Provider Instructions: You were admitted for headache, high blood pressure, and vertigo with left hand numbness/weakness. You were found to NOT have a stroke. There is a possibility this was caused by a complex type of migraine. You were started on verapamil which is good for migraine prevention as well as for high blood pressure. Please follow up with your PCP and with Neurology as above. Pending Studies at Discharge: No Stand-Alone Forms: My [facility], Smoking Cessation Medications and DC Order Prescriptions: New verapamil 80 mg tablet 80 mg PO TID Qty: 90 RF: 0 Continued triamterene-hydrochlorothiazid 37.5-25 mg capsule 1 cap PO DAILY Qty: 90 RF: 3 ferrous sulfate 325 mg (65 mg iron) tablet 325 mg PO 4XWK RF: 0 cholecalciferol (vitamin D3) [Vitamin D3] 5,000 unit Tablet 5,000 unit PO DAILY RF: 0 nortriptyline 10 mg capsule 20 mg PO 4XWK RF: 0 pravastatin 20 mg tablet 20 mg PO 3XWK RF: 0 No Action levothyroxine [Synthroid] 125 mcg tablet 125 mcg PO DAILY RF: 0 docusate sodium 250 mg capsule 250 mg PO DAILY Qty: 30 RF: 0 Colace Clear 50 mg capsule 50 mg PO DAILY Qty: 30 RF: 0 omeprazole 40 mg capsule,delayed release(DR/EC) 40 mg PO DAILY Qty: 30 RF: 2 calcium polycarbophil [FiberCon] 625 mg tablet 1,250 mg PO DAILY Qty: 60 RF: 0 clobetasol 0.05 % cream 1 appln TOP .twice weekly Qty: 15 RF: 0 lorazepam 0.5 mg tablet 0.5 mg PO HS Qty: 30 RF: 0 Discharge Orders: Discharge Order (Routine); Ordered 06/28/19 Ordered By: Katie Grewal/Other Patient Handouts: Prediabetes, Diabetes Healthy Meals, Diabetes Exercise Benefits, Diabetes Manage A1C Test, Diabetes Prediabetes Ch Admission Data Admit Date/Time: 06/27/19 03:22 Attending Provider: Katie Rodriguez Admit Provider: Asif Newton Primary Care Provider: Manas Fulton Other Providers: Corky Mcallister Other Interventions: Discharge Summary Assessment (RN) Last Done: 06/28/19 14:53 DC Date/Time DO NOT enter until pt leaves facility: 06/28/19 15:26
== END 2019-06-28 15:26 | disposition home or self-care (01) ==
LOC: ED 20:56 → 2S 20:56 → SUATTDRO 06-27 03:22 → 2S 06-27 04:05

== ENCOUNTER 2021-04-23 11:41 | Inpatient (IN) ==
[2021-04-23] MEDS ORDERED: SODIUM CHLORIDE 0.9% 1000ML 1,000 ML IV STA (11:54)
[2021-04-23] MEDS: MoRPHine SULFATE 4 MG/ML 1 ML CARP\\VIAL IV PRN ×2 (12:10→14:10)
[2021-04-23 12:27] LABS: Basophils # (auto) 0.01 K/uL (0-0.2); Basophils % (auto) 0.1 %; Eosinophils # (auto) 0.07 K/uL (0-0.5); Eosinophils % (auto) 0.7 %; Hematocrit (blood only) 36.6 % (37-47); Hemoglobin 12.5 g/dL (12.0-16.0); Immature Granulocytes # (auto) 0.02 K/uL (0.00-0.02); Immature Granulocytes % (auto) 0.2 %; Lymphocytes # (auto) 1.69 K/uL (1.2-3.4); Mean Corpuscular Hemoglobin 31.4 pg (25-34); Mean Corpuscular Hgb Conc 34.2 g/dL (32-36); Mean Platelet Volume 9.6 fL (7.4-10.4); Monocytes # (auto) 0.75 K/uL (0.11-0.59); Monocytes % (auto) 7.1 %; Neutrophils # (auto) 8.03 K/uL (1.4-6.5); Neutrophils % (auto) 75.9 %; Platelet Count 277 K/uL (130-400); RDW Coefficient of Variation 13.2 % (11.5-14.5); RDW Standard Deviation 44.6 fL (36.4-46.3); Red Blood Count 3.98 M/uL (4.2-5.4); White Blood Count 10.57 K/uL (4.8-10.8)
[2021-04-23 12:46] LABS: Albumin Globulin Ratio 0.9 (0.9-2); Albumin Level 3.2 gm/dl (3.4-5.0); BUN Creatinine Ratio 12.6 (10-20); Bilirubin,Total 0.7 mg/dl (0.2-1); Calcium 9.3 mg/dl (8.5-10.1); Creatinine Clr Calc Pharmacy 103.9 ml/min; Est GFR (African American) 111.5 ml/min; Est GFR (Non-African American) 96.2 ml/min; Globulin 3.5 gm/dl (2.5-4.0); Potassium 3.5 mmol/L (3.5-5.1); Total Protein 6.7 gm/dl (6.4-8.2)
--- NOTE | 2021-04-23 12:58 | Emergency Department Note ---
Impression & Plan Diverticulitis, Abdominal pain ED Provider Note NAME: MARQUIS DENIS AGE: 65 SEX: F : 1955 ARRIVES VIA: Ambulance INFORMANT: Patient, ED PROVIDER(S): Manas Starr DO CHIEF COMPLAINT: Abdominal pain HPI: The patient is a 65-year-old female who presented to the emergency department from her primary head of advertising for an evaluation of abdominal pain. The patient started having very severe abdominal pain prior to arrival. The patient was treated with IV pain medication by the prehospital personnel after a medic man call was made to our facility and answered by myself. The patient was seen in our facility recently diagnosed with diverticulitis. This appeared to be uncomplicated and the patient was started on antibiotics. She states that she has been very compliant with her outpatient medication regimen but started having very severe pain over the course the last few days. She is also reports very severe constipation. She denies having any rectal bleeding. She denies having any chest pain or difficulty breathing. She is had no fever. Pain is moderate to severe. Worsen with ambulation or palpation. ROS: See above HPI for pertinent positives & negatives. A total of 10 systems reviewed and were otherwise negative. PAST MEDICAL HISTORY: See Below PAST SURGICAL HISTORY: See Below FAMILY HISTORY: See Below SOCIAL HISTORY: See Below HOME MEDICATIONS: See Below ALLERGIES: See Below VITALS: See Below PHYSICAL EXAMINATION: GENERAL: The patient is awake and alert. She is very anxious appearing and appears to be uncomfortable. EYES: The conjunctivae are clear. The pupils are round and reactive. EARS, NOSE, MOUTH AND THROAT: The nose is without any evidence of any deformity. Mucous membranes are moist. Tongue is midline. NECK: The neck is nontender and supple. RESPIRATORY: Normal respiratory effort is noted there is no evidence of wheezing rhonchi or rales CARDIOVASCULAR: Regular rate and rhythm noted there no murmurs rubs or gallops normal S1 normal S2. GASTROINTESTINAL: The abdomen is diffusely tender in mildly distended. There is guarding in both lower quadrants. MUSCULOSKELETAL/EXTREMITIES: There is no evidence of gross deformity full range of motion is noted in the hips and shoulders. SKIN: There is no obvious evidence of any rash. There are no petechiae, pallor or cyanosis noted. NEUROLOGIC: Patient is awake alert and oriented x3. MEDICAL DECISION MAKING: The patient is a 65-year-old female who presented to the emergency department for an evaluation of abdominal pain. The patient was recently diagnosed with diverticulitis. She was taking her medication at home as well as her antibiotics but the pain became much worse and she followed up with gastroenterology today. She was sent directly from gastroenterology to the emergency department by ambulance because of severe abdominal pain. The patient's physical exam was consistent with significant abdominal pain but CT showed no significant change from previous. She was further treated with IV fluids IV pain medication and IV antibiotics. I discussed the patient's condition with the on-call [facility] hospitalist group. Because of intractable pain she was unable to be managed as an outpatient. They have agreed to evaluate the patient in the emergency department for further management and disposition. Triage Nursing notes reviewed. Prior medical records reviewed Vital Signs: reviewed and remarkable for no significant abnormalities Differential diagnosis: Etiologies such as appendicitis, diverticulitis, obstruction, inflammatory bowel disease, renal colic, PUD, biliary pathology, pancreatitis, mesenteric ischemia, aortic pathology, infections, genitourinary, UTI, perforated viscus, as well as others were entertained. ER treatment provided: See below Diagnostics interpreted by me: ECG: none Cardiac Monitoring: An order was placed for continuous cardiac monitoring. The monitor shows a rate of 68 bpm with sinus rhythm. Laboratory studies: As stated above and show below. Imaging studies: See below Consultation(s): I discussed this case with Dr. Bruno who is on-call for the [facility] hospitalist group. He will evaluate the patient in the emergency department. Past Med/Surg History Medical History (Updated 04/23/21 @ 18:32 by Manas Starr DO) Anemia ETD (eustachian tube dysfunction) GERD (gastroesophageal reflux disease) History of long-term treatment with high-risk medication History of vertigo Hyperlipidemia Hypertension Hypothyroidism Insomnia TMJ syndrome Vestibular migraine Surgical History History of excision of lesion Hx of total knee arthroplasty Family History Mother Rheumatoid arthritis Hypertension Stroke Cancer Father Hypertension Stroke Cancer FH: deafness or hearing loss Family/Other Stroke Other Family history of blood clots Denies family history of Colon cancer Ovarian cancer Prostate cancer Myocardial infarction Breast cancer Social History Smoking Status: Never smoker Second Hand Exposure: No; Do You Dip or Chew Tobacco: No; Hx Alcohol Use: Yes Alcohol type: beer, wine and hard liquor Hx Substance Use: No Preferred Language: Serbian Communication Ability: Effective Visual Impairment: No Limitations Hearing Ability: Normal Sand Worker Required: No Beliefs That Will Affect Care: None marital status: Current Living Situation: Spouse Current Living Situation Comment: 2 story home, 3 steps to enter, 1 st floor bath current occupational status: employed Other Information That Helps Us Care for You: No Feels Safe at Home: Yes Safety Concerns: Feels Safe At This Time Childhood Exposure to Second-Hand Smoke: No Dental Care, Regularly: Yes Physical Activity Frequency: 1-2 Times per Week Seatbelt Use: always Sunscreen Use: Yes Assistive Devices: Glasses Allergies Allergies Allergy/AdvReac Type Severity Reaction Status Date / Time No Known Drug Allergies Allergy Verified 03/04/21 13:48 Home Meds Home Medications Medication Instructions Recorded Confirmed ferrous sulfate 325 mg (65 mg 325 mg PO [id number] tab 03/28/19 04/23/21 iron) tablet cholecalciferol (vitamin D3) 125 5,000 unit PO DAILY 06/26/19 04/23/21 mcg (5,000 unit) tablet (Vitamin D3) lorazepam 0.5 mg tablet 0.5 mg PO HS PRN tab 07/10/19 04/23/21 fluticasone propionate 50 1 spray INTNAS BID PRN ml 12/13/20 04/23/21 mcg/actuation nasal spray,suspension (Flonase Allergy Relief) mecobalamin (vitamin B12) 1,000 See Rx Instructions PO DAILY 01/09/21 04/23/21 mcg chewable tablet (B12 Active) Previous Rx's Medication Instructions Recorded calcium polycarbophil 625 mg 1,250 mg PO DAILY #60 tab 07/04/19 tablet (FiberCon) omeprazole 40 mg capsule,delayed 40 mg PO DAILY #30 cap 07/04/19 release pravastatin 20 mg tablet 20 mg PO DAILY 90 Days #90 tab 04/10/20 diazepam 2 mg tablet (Valium) 2 mg PO BID PRN #10 tab 08/20/20 naratriptan 2.5 mg tablet See Rx Instructions PO .COMPLEX 08/20/20 #10 tab lisinopril 2.5 mg tablet 2.5 mg PO DAILY #90 tab 09/23/20 clobetasol 0.05 % topical cream 1 applic TOP 2XWK #60 gm 11/05/20 ondansetron 4 mg disintegrating 4 mg PO Q8H PRN #30 tab 11/12/20 tablet calcium-vitamins B6-B12-FA tablet 1 tab PO DAILY #30 tab 12/13/20 tixftwan-jmnkrapih-mwmrqoerr 3.5 4 drp OTIC (EAR) TID 7 Days #10 ml 03/04/21 mg-10,000 unit/mL-1 % ear drops,susp triamterene 37.5 1 cap PO DAILY #90 cap 03/28/21 mg-hydrochlorothiazide 25 mg capsule levothyroxine 112 mcg tablet 112 mcg PO DAILY #30 tab 04/04/21 amoxicillin 875 mg-potassium 1 tab PO BID #20 tab 04/22/21 clavulanate 125 mg tablet (Augmentin) docusate sodium 100 mg capsule 100 mg PO BID #60 cap 04/22/21 (Colace) oxycodone 5 mg tablet 5 mg PO Q6H PRN #14 tab 04/22/21 sennosides 8.6 mg tablet (Senokot) 8.6 mg PO HS #30 tab 04/22/21 Results & Data (ED) Vital Signs Vital Signs - 24 hr 04/23/21 11:56 04/23/21 12:08 04/23/21 12:09 Temperature Temperature Source Pulse Rate 57 L 58 L Pulse Rate [Left Finger] 58 L Pulse Rate from SpO2 Sensor 57 L 58 L Respiratory Rate 20 22 Respiratory Effort / Characteristics Non-Labored Spontaneous Respiratory Depth Normal Blood Pressure 132/75 115/63 Blood Pressure [Left Arm] 115/63 Blood Pressure Mean 94 80 Blood Pressure Mean [Left Arm] 80 Blood Pressure Position Blood Pressure Position [Left Arm] Lying Pulse Oximetry 95 94 93 Oxygen Delivery Method Room Air Room Air Sepsis Recent Fever Within 48 Hours Sepsis New/Unexplained Change in Mental Status Sepsis Action Taken by Nursing 04/23/21 12:23 04/23/21 13:26 04/23/21 13:27 Temperature 37.1 C Temperature Source Oral Pulse Rate 57 L 59 L Pulse Rate [Left Finger] 61 Pulse Rate from SpO2 Sensor 60 Respiratory Rate 18 18 16 Respiratory Effort / Characteristics Non-Labored Spontaneous Respiratory Depth Normal Blood Pressure 132/75 116/70 Blood Pressure [Left Arm] 116/70 Blood Pressure Mean 94 85 Blood Pressure Mean [Left Arm] 85 Blood Pressure Position Lying Blood Pressure Position [Left Arm] Pulse Oximetry 95 95 97 Oxygen Delivery Method Room Air Room Air Sepsis Recent Fever Within 48 Hours No Sepsis New/Unexplained Change in Mental Status N/A Sepsis Action Taken by Nursing No Action Required 04/23/21 13:30 04/23/21 14:00 04/23/21 14:30 Temperature Temperature Source Pulse Rate 58 L 62 59 L Pulse Rate [Left Finger] Pulse Rate from SpO2 Sensor 59 L 62 61 Respiratory Rate 13 22 21 Respiratory Effort / Characteristics Respiratory Depth Blood Pressure 112/70 111/63 111/65 Blood Pressure [Left Arm] Blood Pressure Mean 84 79 80 Blood Pressure Mean [Left Arm] Blood Pressure Position Blood Pressure Position [Left Arm] Pulse Oximetry 98 97 96 Oxygen Delivery Method Sepsis Recent Fever Within 48 Hours Sepsis New/Unexplained Change in Mental Status Sepsis Action Taken by [facility] Medications Current Medication List: was personally reviewed by me Laboratory Data Attestation: I reviewed the patient's lab results. Result diagrams: 04/23/21 12:12 04/23/21 12:12 Lab Results 04/23/21 04/23/21 04/23/21 Range/Units 12:12 12:12 13:15 WBC 10.57 (4.8-10.8) K/uL RBC 3.98 L (4.2-5.4) M/uL Hgb 12.5 (12.0-16.0) g/dL Hct 36.6 L (37-47) % MCV 92.0 (80-100) fL MCH 31.4 (25-34) pg MCHC 34.2 (32-36) g/dL RDW Std Deviation 44.6 (36.4-46.3) fL RDW Coeff of Juan 13.2 (11.5-14.5) % Plt Count 277 (130-400) K/uL MPV 9.6 (7.4-10.4) fL Immature Gran % (Auto) 0.2 % Neut % (Auto) 75.9 % Lymph % (Auto) 16.0 % Elliott % (Auto) 7.1 % Eos % (Auto) 0.7 % Baso % (Auto) 0.1 % Neut # (Auto) 8.03 H (1.4-6.5) K/uL Lymph # (Auto) 1.69 (1.2-3.4) K/uL Elliott # (Auto) 0.75 H (0.11-0.59) K/uL Eos # (Auto) 0.07 (0-0.5) K/uL Baso # (Auto) 0.01 (0-0.2) K/uL Immature Gran # (Auto) 0.02 (0.00-0.02) K/uL Sodium 131 L (136-145) mmol/L Potassium 3.5 (3.5-5.1) mmol/L Chloride 99 (98-107) mmol/L Carbon Dioxide 28 (21-32) mmol/L Anion Gap 4.0 (3-11) BUN 7 D (7-18) mg/dl Creatinine 0.59 L (0.6-1.2) mg/dl Est Cr Clr Drug Dosing 103.9 ml/min Est GFR ( Amer) 111.5 ml/min Est GFR (Non-Af Amer) 96.2 ml/min BUN/Creatinine Ratio 12.6 (10-20) Glucose 96 (70-99) mg/dl Calcium 9.3 (8.5-10.1) mg/dl Total Bilirubin 0.7 (0.2-1) mg/dl AST 14 L (15-37) U/L ALT 20 (12-78) U/L Alkaline Phosphatase 82 (45-117) U/L Total Protein 6.7 (6.4-8.2) gm/dl Albumin 3.2 L (3.4-5.0) gm/dl Globulin 3.5 (2.5-4.0) gm/dl Albumin/Globulin Ratio 0.9 (0.9-2) Lipase 68 L (73-393) U/L Urine Color Yellow Urine Appearance Clear (Clear) Urine pH 8.0 H (4.5-7.5) Ur Specific [place] 1.009 (1.000-1.030) Urine Protein Negative (Negative) Urine Glucose (UA) Negative (Negative) Urine Ketones Negative (Negative) Urine Blood Negative (Negative) Urine Nitrite Negative (Negative) Urine Bilirubin Negative (Negative) Urine Urobilinogen Negative (Negative) Ur Leukocyte Esterase Negative (Negative) COVID-19 Eval Order SARS-CoV-2 (PCR) (Negative) 04/23/21 04/23/21 Range/Units 14:25 14:25 WBC (4.8-10.8) K/uL RBC (4.2-5.4) M/uL Hgb (12.0-16.0) g/dL Hct (37-47) % MCV (80-100) fL MCH (25-34) pg MCHC (32-36) g/dL RDW Std Deviation (36.4-46.3) fL RDW Coeff of Juan (11.5-14.5) % Plt Count (130-400) K/uL MPV (7.4-10.4) fL Immature Gran % (Auto) % Neut % (Auto) % Lymph % (Auto) % Elliott % (Auto) % Eos % (Auto) % Baso % (Auto) % Neut # (Auto) (1.4-6.5) K/uL Lymph # (Auto) (1.2-3.4) K/uL Elliott # (Auto) (0.11-0.59) K/uL Eos # (Auto) (0-0.5) K/uL Baso # (Auto) (0-0.2) K/uL Immature Gran # (Auto) (0.00-0.02) K/uL Sodium (136-145) mmol/L Potassium (3.5-5.1) mmol/L Chloride (98-107) mmol/L Carbon Dioxide (21-32) mmol/L Anion Gap (3-11) BUN (7-18) mg/dl Creatinine (0.6-1.2) mg/dl Est Cr Clr Drug Dosing ml/min Est GFR ( Amer) ml/min Est GFR (Non-Af Amer) ml/min BUN/Creatinine Ratio (10-20) Glucose (70-99) mg/dl Calcium (8.5-10.1) mg/dl Total Bilirubin (0.2-1) mg/dl AST (15-37) U/L ALT (12-78) U/L Alkaline Phosphatase (45-117) U/L Total Protein (6.4-8.2) gm/dl Albumin (3.4-5.0) gm/dl Globulin (2.5-4.0) gm/dl Albumin/Globulin Ratio (0.9-2) Lipase (73-393) U/L Urine Color Urine Appearance (Clear) Urine pH (4.5-7.5) Ur Specific [place] (1.000-1.030) Urine Protein (Negative) Urine Glucose (UA) (Negative) Urine Ketones (Negative) Urine Blood (Negative) Urine Nitrite (Negative) Urine Bilirubin (Negative) Urine Urobilinogen (Negative) Ur Leukocyte Esterase (Negative) COVID-19 Eval Order Covid19 at [facility] SARS-CoV-2 (PCR) NEGATIVE (Negative) Administered Medications Acetaminophen (Ofirmev) 1,000 mg in 100 mls @ 400 mls/hr IV Q8H LEWIS; Protocol Stop: 04/26/21 17:59 Last Infusion: 04/23/21 18:08 Dose: 0 mls/hr Documented by: [id number] Admin: 04/23/21 17:37 Dose: 400 mls/hr Documented by: [id number] Ondansetron HCl (Ondansetron Inj 2 Mg/Ml 2 Ml Vial) 4 mg IV Q6H PRN PRN Reason: Nausea Stop: 05/23/21 15:24 Last Admin: 04/23/21 16:24 Dose: 4 mg Documented by: [id number] Discontinued Medications Acetaminophen (Acetaminophen 1000 Mg/100 Ml Iv) 1,000 mg IV Q8H LEWIS Stop: 04/26/21 16:48 Last Admin: 04/23/21 18:09 Dose: Not Given Documented by: [id number] Sodium Chloride (Nss 1000ml) 1,000 mls @ 999 mls/hr IV .Q1H1M STA Stop: 04/23/21 12:54 Last Infusion: 04/23/21 14:10 Dose: 0 mls/hr Documented by: [id number] Admin: 04/23/21 12:10 Dose: 999 mls/hr Documented by: [id number] Ampicillin Sodium/Sulbactam Sodium 3,000 mg/ Sodium Chloride 108 mls @ 200 mls/hr IV NOW STA; Protocol Stop: 04/23/21 15:07 Last Infusion: 04/23/21 15:41 Dose: 200 mls/hr Documented by: [id number] Admin: 04/23/21 15:08 Dose: 200 mls/hr Documented by: [id number] Morphine Sulfate (Morphine Sulfate 4 Mg/Ml 1 Ml Carp\Vial) 4 mg IV Q15M PRN PRN Reason: Pain Stop: 05/07/21 11:53 Last Admin: 04/23/21 14:10 Dose: 4 mg Documented by: [id number] Admin: 04/23/21 12:10 Dose: 4 mg Documented by: [id number] Imaging Data Radiologist's Impression: Abdomen/Pelvis CT 04/23/21 11:54 CT SCAN OF THE ABDOMEN AND PELVIS WITHOUT IV CONTRAST CLINICAL HISTORY: Left lower quadrant abdominal pain. COMPARISON STUDY: Abdominal CT dated 04/22/2021. TECHNIQUE: CT scan of the abdomen and pelvis is performed from the lung bases to the proximal femora. Images are reviewed in the axial, sagittal, and coronal planes. IV contrast was not administered for this examination. Note that the examination was performed in suboptimal fashion without oral and IV contrast. A dose lowering technique was utilized adhering to the principles of ALARA. CT DOSE: 567.71 mGy.cm FINDINGS: Lung bases: The heart is normal in size and without pericardial effusion. The lung bases are clear noting dependent atelectasis. There is a small hiatal hernia. Liver: The unenhanced liver is normal in size, contour, and attenuation. There is no intrahepatic biliary ductal dilatation. Gallbladder: There are calcified gallstones with no CT evidence of acute cholecystitis. Spleen: Normal in size and attenuation. Pancreas: Unremarkable. Adrenal glands: Unremarkable. Kidneys: The unenhanced kidneys are normal in size and without hydronephrosis. There are no renal calculi identified. Bilateral renal cysts measure up to 5 cm. Abdominal vasculature: The abdominal aorta is normal in course and caliber. Bowel: There is mild to moderate sigmoid diverticulosis. There is wall thickening with pericolonic inflammation involving the sigmoid colon consistent with acute diverticulitis. There is no evidence of organized fluid collection on this unenhanced examination to suggest abscess. No bowel obstruction is seen. The appendix is well-visualized and normal. Peritoneum: No intraperitoneal free air is identified. There is trace free fluid in the pelvis. There is a fat-containing umbilical hernia. Lymphadenopathy: None. Pelvic viscera: The bladder, uterus, and adnexa are normal as imaged. Skeletal structures: The skeletal structures are osteopenic. Mild lumbosacral spondylosis is observed. No lytic or blastic lesions are seen. IMPRESSION: 1. Acute sigmoid diverticulitis is unchanged from yesterday. 2. No intraperitoneal free air is identified and there is no evidence of organized fluid collection to suggest abscess. 3. Cholelithiasis. 4. Trace free fluid in the cul-de-sac is likely reactive. 5. Additional findings as above. ACT 112: Negative or not required by law. Electronically signed by: Roel Rivero M.D. 04/23/2021 1:13 PM Discharge Plan Visit Data Chief Complaint: Abdominal Pain Stated Complaint: Abd pain ED Provider: Manas Starr Discharge Problem: Diverticulitis, Abdominal pain Patient Disposition: Admitted As Inpatient Condition: Good Discharge Instructions Interventions: ED Discharge Assessment Last Done: 04/23/21 16:39 Discharge Problem: Abdominal pain Qualifiers: Abdominal location: left lower quadrant Qualified Code(s): R10.32 - Left lower quadrant pain
--- NOTE | 2021-04-23 13:14 | CT Scan Report ---
CT SCAN OF THE ABDOMEN AND PELVIS WITHOUT IV CONTRAST CLINICAL HISTORY: Left lower quadrant abdominal pain. COMPARISON STUDY: Abdominal CT dated 04/22/2021. TECHNIQUE: CT scan of the abdomen and pelvis is performed from the lung bases to the proximal femora. Images are reviewed in the axial, sagittal, and coronal planes. IV contrast was not administered for this examination. Note that the examination was performed in suboptimal fashion without oral and IV contrast. A dose lowering technique was utilized adhering to the principles of ALARA. CT DOSE: 567.71 mGy.cm FINDINGS: Lung bases: The heart is normal in size and without pericardial effusion. The lung bases are clear no ting dependent atelectasis. There is a small hiatal hernia. Liver: The unenhanced liver is normal in size, contour, and attenuation. There is no intrahepatic aldo iary ductal dilatation. Gallbladder: There are calcified gallstones with no CT evidence of acute cholecystitis. Spleen: Normal in size and attenuation. Pancreas: Unremarkable. Adrenal glands: Unremarkable. Kidneys: The unenhanced kidneys are normal in size and without hydronephrosis. There are no renal aris culi identified. Bilateral renal cysts measure up to 5 cm. Abdominal vasculature: The abdominal aorta is normal in course and caliber. Bowel: There is mild to moderate sigmoid diverticulosis. There is wall thickening with pericolonic in flammation involving the sigmoid colon consistent with acute diverticulitis. There is no evidence of organized fluid collection on this unenhanced examination to suggest abscess. No bowel obstruction is seen. The appendix is well-visualized and normal. Peritoneum: No intraperitoneal free air is identified. There is trace free fluid in the pelvis. There is a fat-containing umbilical hernia. Lymphadenopathy: None. Pelvic viscera: The bladder, uterus, and adnexa are normal as imaged. Skeletal structures: The skeletal structures are osteopenic. Mild lumbosacral spondylosis is observed . No lytic or blastic lesions are seen. IMPRESSION: 1. Acute sigmoid diverticulitis is unchanged from yesterday. 2. No intraperitoneal free air is identified and there is no evidence of organized fluid collection t o suggest abscess. 3. Cholelithiasis. 4. Trace free fluid in the cul-de-sac is likely reactive. 5. Additional findings as above. ACT 112: Negative or not required by law. Electronically signed by: Roel Rivero M.D. 04/23/2021 1:13 PM
[2021-04-23 13:33] LABS: Appearance Urine Clear (Clear); Bilirubin Urine Negative (Negative); Blood Urine Negative (Negative); Color Urine Yellow; Glucose Urine UA Negative (Negative); Ketones Urine Negative (Negative); Leukocyte Esterase Urine Negative (Negative); Nitrite Urine Negative (Negative); Protein Urine Negative (Negative); Specific Gravity Urine 1.009 (1.000-1.030); Urobilinogen Urine Negative (Negative)
[2021-04-23] MEDS ORDERED: AMPICILLIN/SULBACTAM SOD 3,000 MG in 0.9 % SODIUM CHLORIDE 100 ML IV STA (14:35)
--- NOTE | 2021-04-23 14:51 | History & Physical Report ---
Date of Service April 23, 2021 Assessment & Plan (1) Diverticulitis: Plan: Reema Kruse is a 65y/o F with PMH significant for HLD, HTN, hypothyroidism, and vestibular migraines; who presents for concern of failed outpatient management of diverticulitis. Diverticulitis: -CT abdomen pelvis demonstrating acute sigmoid diverticulitis unchanged as compared to CT from 04/22 -as outpatient was on Augmentin regimen that had been started on 04/22 -in ED received Unasyn IV -transition to IV Ceftriaxone and Flagyl for continued treatment while inpatient -maintain NPO (can use swabs to limit mouth dryness) -NSS w/ 20meq of KCl -Tylenol 1000mg Q8h scheduled, with Morphine 4mg q2h PRN breakthrough pain Vestibular migraines: -converted home regimen of naratriptan and Diazepam/Ativan PRN to as needed SQ sumatriptan and IV ativan Chronic Medical Conditions: HTN: hold home lisinopril HLD: hold home pravastatin Hypothyroidism: hold home synthroid Diet: NPO CODE STATUS: NPO (2) Vestibular migraine: (3) Hyperlipidemia: (4) Hypertension: (5) Hypothyroidism: History of Present Illness Primary Care Provider: Manas Fulton MD Reema Kruse is a 65y/o F with PMH significant for HLD, HTN, hypothyroidism, and vestibular migraines; who presents for concern of failed outpatient management of diverticulitis. Pain originally started approximately 3 days ago, and over the last several days had worsened with intermittent abdominal pain, and associated cramping and nausea. Ultimately resulting in her presentation to the ED on 04/22, during that visit she had a CT that demonstrated uncomplicated sigmoid diverticulitis, and with her pain being somewhat controlled she as discharged home on Augmentin. After a couple hours at home, she was noticing that she had the urge to stool, but could not have a bowel movement, as a result of this she took multiple doses of miralax, colace, and senokot. Following this she noticed drastic increase in her abdominal pain and discomfort, and called her primary GI doctor who recommended she be seen and evaluated in the ED for failed outpatient management and concern for perforation. Prior to admission, she continued to endorse constipation with feeling of need to defecate. Continues to note some abdominal pain, but feels like this has been slightly been improved by the IV pain medication. Desires to avoid narcotics if possible out of concern of slowing bowel movements. Allergies Allergy/AdvReac Type Severity Reaction Status Date / Time No Known Drug Allergies Allergy Verified 03/04/21 13:48 Home Medications Medication Instructions Recorded Confirmed Type ferrous sulfate 325 mg (65 mg 325 mg PO 4XWK tab 03/28/19 04/23/21 History iron) tablet cholecalciferol (vitamin D3) 125 5,000 unit PO DAILY 06/26/19 04/23/21 History mcg (5,000 unit) tablet (Vitamin D3) calcium polycarbophil 625 mg 1,250 mg PO DAILY #60 tab 07/04/19 04/23/21 Rx tablet (FiberCon) omeprazole 40 mg capsule,delayed 40 mg PO DAILY #30 cap 07/04/19 04/23/21 Rx release lorazepam 0.5 mg tablet 0.5 mg PO HS PRN tab 07/10/19 04/23/21 History pravastatin 20 mg tablet 20 mg PO DAILY 90 Days #90 tab 04/10/20 04/23/21 Rx diazepam 2 mg tablet (Valium) 2 mg PO BID PRN #10 tab 08/20/20 04/23/21 Rx naratriptan 2.5 mg tablet See Rx Instructions PO .COMPLEX 08/20/20 04/23/21 Rx #10 tab lisinopril 2.5 mg tablet 2.5 mg PO DAILY #90 tab 09/23/20 04/23/21 Rx clobetasol 0.05 % topical cream 1 applic TOP 2XWK #60 gm 11/05/20 04/23/21 Rx ondansetron 4 mg disintegrating 4 mg PO Q8H PRN #30 tab 11/12/20 04/23/21 Rx tablet calcium-vitamins B6-B12-FA tablet 1 tab PO DAILY #30 tab 12/13/20 04/23/21 Rx fluticasone propionate 50 1 spray INTNAS BID PRN ml 12/13/20 04/23/21 History mcg/actuation nasal spray,suspension (Flonase Allergy Relief) mecobalamin (vitamin B12) 1,000 See Rx Instructions PO DAILY 01/09/21 04/23/21 History mcg chewable tablet (B12 Active) [id number] 3.5 4 drp OTIC (EAR) TID 7 Days #10 ml 06/29/21 08/18/21 Rx mg-10,000 unit/mL-1 % ear drops,susp triamterene 37.5 1 cap PO DAILY #90 cap 03/28/21 04/23/21 Rx mg-hydrochlorothiazide 25 mg capsule levothyroxine 112 mcg tablet 112 mcg PO DAILY #30 tab 04/04/21 04/23/21 Rx amoxicillin 875 mg-potassium 1 tab PO BID #20 tab 04/22/21 04/23/21 Rx clavulanate 125 mg tablet (Augmentin) docusate sodium 100 mg capsule 100 mg PO BID #60 cap 04/22/21 04/23/21 Rx (Colace) oxycodone 5 mg tablet 5 mg PO Q6H PRN #14 tab 04/22/21 04/23/21 Rx sennosides 8.6 mg tablet (Senokot) 8.6 mg PO HS #30 tab 04/22/21 04/23/21 Rx Past Med/Surg History Medical History (Updated 04/23/21 @ 18:32 by Manas Starr DO) Anemia ETD (eustachian tube dysfunction) GERD (gastroesophageal reflux disease) History of long-term treatment with high-risk medication History of vertigo Hyperlipidemia Hypertension Hypothyroidism Insomnia TMJ syndrome Vestibular migraine Surgical History History of excision of lesion Hx of total knee arthroplasty Family History Mother Rheumatoid arthritis Hypertension Stroke Cancer Father Hypertension Stroke Cancer FH: deafness or hearing loss Family/Other Stroke Other Family history of blood clots Denies family history of Colon cancer Ovarian cancer Prostate cancer Myocardial infarction Breast cancer Social History Smoking Status: Never smoker Second Hand Exposure: No; Do You Dip or Chew Tobacco: No; Hx Alcohol Use: Yes Alcohol type: beer, wine and hard liquor Hx Substance Use: No Preferred Language: Irish Communication Ability: Effective Visual Impairment: No Limitations Hearing Ability: Normal Registered Art Therapist Required: No Beliefs That Will Affect Care: None marital status: Current Living Situation: Spouse Current Living Situation Comment: 2 story home, 3 steps to enter, 1 st floor bath current occupational status: employed Other Information That Helps Us Care for You: No Feels Safe at Home: Yes Safety Concerns: Feels Safe At This Time Childhood Exposure to Second-Hand Smoke: No Dental Care, Regularly: Yes Physical Activity Frequency: 1-2 Times per Week Seatbelt Use: always Sunscreen Use: Yes Assistive Devices: Glasses Review of Systems Review of Systems: All systems reviewed & are unremarkable except as noted in HPI & below Physical Exam Constitutional: WD/WN, vitals as above Eyes: PERRL, conjunctivae normal, anicteric sclerae Respiratory: normal respiratory effort, lungs clear to auscultation Auscultation: no crackles, no rales, no rhonchi and no wheezes Cardiovascular: Rate/Rhythm: regular rate and regular rhythm Heart Sounds: no gallop, no murmur and no cardiac rub Vessels: normal peripheral pulses; no JVD Extremities: no edema Gastrointestinal (Abdomen): Inspection/Auscultation: normal bowel sounds; abdomen not distended Percussion/Palpation: + abdomen tender (lower quadrants, and suprapubic) and abdomen soft; no guarding and abdomen not rigid Musculoskeletal: no cyanosis or clubbing, extremities motor strength 5/5 Skin: no rashes, warm and dry Neurologic: PERRL, EOMI, accommodation nl, no face palsy, no dysarthria CN's II-XI intact bilaterally and moves all extremities Psychiatric: Orientation: alert and oriented x 3 Results & Data Results & Data ([facility]) Vital Signs (Past 12 Hours) Vital Signs Temp Pulse Pulse Resp BP BP Pulse Ox 04/23/21 13:30 58 L 13 112/70 98 04/23/21 13:27 59 L 16 116/70 97 04/23/21 13:26 61 18 116/70 95 04/23/21 12:23 37.1 C 57 L 18 132/75 95 04/23/21 12:09 58 L 58 L 22 115/63 115/63 93 04/23/21 12:08 94 04/23/21 11:56 57 L 20 132/75 95 Laboratory Results 04/23/21 04/23/21 04/23/21 Range/Units 14:25 14:25 13:15 WBC (4.8-10.8) K/uL RBC (4.2-5.4) M/uL Hgb (12.0-16.0) g/dL Hct (37-47) % MCV (80-100) fL MCH (25-34) pg MCHC (32-36) g/dL RDW Std Deviation (36.4-46.3) fL RDW Coeff of Juan (11.5-14.5) % Plt Count (130-400) K/uL MPV (7.4-10.4) fL Immature Gran % (Auto) % Neut % (Auto) % Lymph % (Auto) % [place] % (Auto) % Eos % (Auto) % Baso % (Auto) % Neut # (Auto) (1.4-6.5) K/uL Lymph # (Auto) (1.2-3.4) K/uL [place] # (Auto) (0.11-0.59) K/uL Eos # (Auto) (0-0.5) K/uL Baso # (Auto) (0-0.2) K/uL Immature Gran # (Auto) (0.00-0.02) K/uL Sodium (136-145) mmol/L Potassium (3.5-5.1) mmol/L Chloride (98-107) mmol/L Carbon Dioxide (21-32) mmol/L Anion Gap (3-11) BUN (7-18) mg/dl Creatinine (0.6-1.2) mg/dl Est Cr Clr Drug Dosing ml/min Est GFR ( Amer) ml/min Est GFR (Non-Af Amer) ml/min BUN/Creatinine Ratio (10-20) Glucose (70-99) mg/dl Calcium (8.5-10.1) mg/dl Total Bilirubin (0.2-1) mg/dl AST (15-37) U/L ALT (12-78) U/L Alkaline Phosphatase (45-117) U/L Total Protein (6.4-8.2) gm/dl Albumin (3.4-5.0) gm/dl Globulin (2.5-4.0) gm/dl Albumin/Globulin Ratio (0.9-2) Lipase (73-393) U/L Urine Color Yellow Urine Appearance Clear (Clear) Urine pH 8.0 H (4.5-7.5) Ur Specific [place] 1.009 (1.000-1.030) Urine Protein Negative (Negative) Urine Glucose (UA) Negative (Negative) Urine Ketones Negative (Negative) Urine Blood Negative (Negative) Urine Nitrite Negative (Negative) Urine Bilirubin Negative (Negative) Urine Urobilinogen Negative (Negative) Ur Leukocyte Esterase Negative (Negative) COVID-19 Eval Order Covid19 at [facility] SARS-CoV-2 (PCR) NEGATIVE (Negative) 04/23/21 04/23/21 Range/Units 12:12 12:12 WBC 10.57 (4.8-10.8) K/uL RBC 3.98 L (4.2-5.4) M/uL Hgb 12.5 (12.0-16.0) g/dL Hct 36.6 L (37-47) % MCV 92.0 (80-100) fL MCH 31.4 (25-34) pg MCHC 34.2 (32-36) g/dL RDW Std Deviation 44.6 (36.4-46.3) fL RDW Coeff of Juan 13.2 (11.5-14.5) % Plt Count 277 (130-400) K/uL MPV 9.6 (7.4-10.4) fL Immature Gran % (Auto) 0.2 % Neut % (Auto) 75.9 % Lymph % (Auto) 16.0 % [place] % (Auto) 7.1 % Eos % (Auto) 0.7 % Baso % (Auto) 0.1 % Neut # (Auto) 8.03 H (1.4-6.5) K/uL Lymph # (Auto) 1.69 (1.2-3.4) K/uL [place] # (Auto) 0.75 H (0.11-0.59) K/uL Eos # (Auto) 0.07 (0-0.5) K/uL Baso # (Auto) 0.01 (0-0.2) K/uL Immature Gran # (Auto) 0.02 (0.00-0.02) K/uL Sodium 131 L (136-145) mmol/L Potassium 3.5 (3.5-5.1) mmol/L Chloride 99 (98-107) mmol/L Carbon Dioxide 28 (21-32) mmol/L Anion Gap 4.0 (3-11) BUN 7 D (7-18) mg/dl Creatinine 0.59 L (0.6-1.2) mg/dl Est Cr Clr Drug Dosing 103.9 ml/min Est GFR ( Amer) 111.5 ml/min Est GFR (Non-Af Amer) 96.2 ml/min BUN/Creatinine Ratio 12.6 (10-20) Glucose 96 (70-99) mg/dl Calcium 9.3 (8.5-10.1) mg/dl Total Bilirubin 0.7 (0.2-1) mg/dl AST 14 L (15-37) U/L ALT 20 (12-78) U/L Alkaline Phosphatase 82 (45-117) U/L Total Protein 6.7 (6.4-8.2) gm/dl Albumin 3.2 L (3.4-5.0) gm/dl Globulin 3.5 (2.5-4.0) gm/dl Albumin/Globulin Ratio 0.9 (0.9-2) Lipase 68 L (73-393) U/L Urine Color Urine Appearance (Clear) Urine pH (4.5-7.5) Ur Specific [place] (1.000-1.030) Urine Protein (Negative) Urine Glucose (UA) (Negative) Urine Ketones (Negative) Urine Blood (Negative) Urine Nitrite (Negative) Urine Bilirubin (Negative) Urine Urobilinogen (Negative) Ur Leukocyte Esterase (Negative) COVID-19 Eval Order SARS-CoV-2 (PCR) (Negative) Diagnostic Findings Impressions Abdomen/Pelvis CT 04/23/21 11:54 CT SCAN OF THE ABDOMEN AND PELVIS WITHOUT IV CONTRAST CLINICAL HISTORY: Left lower quadrant abdominal pain. COMPARISON STUDY: Abdominal CT dated 04/22/2021. TECHNIQUE: CT scan of the abdomen and pelvis is performed from the lung bases to the proximal femora. Images are reviewed in the axial, sagittal, and coronal planes. IV contrast was not administered for this examination. Note that the examination was performed in suboptimal fashion without oral and IV contrast. A dose lowering technique was utilized adhering to the principles of ALARA. CT DOSE: 567.71 mGy.cm FINDINGS: Lung bases: The heart is normal in size and without pericardial effusion. The lung bases are clear noting dependent atelectasis. There is a small hiatal hernia. Liver: The unenhanced liver is normal in size, contour, and attenuation. There is no intrahepatic biliary ductal dilatation. Gallbladder: There are calcified gallstones with no CT evidence of acute cholecystitis. Spleen: Normal in size and attenuation. Pancreas: Unremarkable. Adrenal glands: Unremarkable. Kidneys: The unenhanced kidneys are normal in size and without hydronephrosis. There are no renal calculi identified. Bilateral renal cysts measure up to 5 cm. Abdominal vasculature: The abdominal aorta is normal in course and caliber. Bowel: There is mild to moderate sigmoid diverticulosis. There is wall thickening with pericolonic inflammation involving the sigmoid colon consistent with acute diverticulitis. There is no evidence of organized fluid collection on this unenhanced examination to suggest abscess. No bowel obstruction is seen. The appendix is well-visualized and normal. Peritoneum: No intraperitoneal free air is identified. There is trace free fluid in the pelvis. There is a fat-containing umbilical hernia. Lymphadenopathy: None. Pelvic viscera: The bladder, uterus, and adnexa are normal as imaged. Skeletal structures: The skeletal structures are osteopenic. Mild lumbosacral spondylosis is observed. No lytic or blastic lesions are seen. IMPRESSION: 1. Acute sigmoid diverticulitis is unchanged from yesterday. 2. No intraperitoneal free air is identified and there is no evidence of organized fluid collection to suggest abscess. 3. Cholelithiasis. 4. Trace free fluid in the cul-de-sac is likely reactive. 5. Additional findings as above. ACT 112: Negative or not required by law. Electronically signed by: Roel Rivero M.D. 04/23/2021 1:13 PM Medications Administered Current Inpatient Medications Lorazepam (Ativan) 1 mg in 2 mls @ 2 mls/min IV Q4H PRN PRN Reason: Anxiety Stop: 05/23/21 15:24 Potassium Chloride/Sodium Chloride (Normal Saline W/20 Meq Kcl) 20 meq in 1,000 mls @ 125 mls/hr IV .Q8H LEWIS Stop: 05/23/21 15:24 Acetaminophen (Ofirmev) 1,000 mg in 100 mls @ 400 mls/hr IV Q8H LEWIS; Protocol Stop: 04/26/21 17:59 Ceftriaxone Sodium 2,000 mg/ (Dextrose) 70 mls @ 100 mls/hr IV DAILY@2100 LEWIS; Protocol Stop: 05/03/21 20:59 Metronidazole (Flagyl) 500 mg in 100 mls @ 100 mls/hr IV Q8H LEWIS Stop: 05/03/21 21:59 Morphine Sulfate (Morphine Sulfate 4 Mg/Ml 1 Ml Carp\Vial) 4 mg IV Q15M PRN PRN Reason: Pain Stop: 05/07/21 11:53 Last Admin: 04/23/21 14:10 Dose: 4 mg Documented by: Ondansetron HCl (Ondansetron Inj 2 Mg/Ml 2 Ml Vial) 4 mg IV Q6H PRN PRN Reason: Nausea Stop: 05/23/21 15:24 Last Admin: 04/23/21 16:24 Dose: 4 mg Documented by: Sumatriptan Succinate (Sumatriptan Succinate 6 Mg/0.5 Ml Vial) 6 mg SQ DAILY PRN PRN Reason: Migraine Headache Stop: 05/23/21 16:48 Supervising Physician Co-Signing Physician Notes I personally examined the patient and verified all gtz points of history and exam, discussed case, and agree with decision making with Dr Cosme. Significant pain. Seems to have improved with IV medicines, unfortunately morphine made her feel nauseated. Vitals noted, in general she is awake and alert pleasant no distress. Does appear fatigued. HEENT normocephalic atraumatic mucous membranes moist. Breathing unlabored no accessory muscle use good effort. Abdomen is soft it is diffusely tender worse infraumbilical, but there is no guarding/rebound/rigidity. Neuro without focal deficits. Diverticulitis -Would not say she failed -Here for symptom management -N.p.o. for now Continue IV antibiotics until she shows improvement, as needed's for pain and nausea, home on p.o. antibiotics once she is able to eat, and once pain is under better control. otherwise as above Resident Activity Tracking Resident Involvement: Resident Care Provided Care Provided: Adult Hospital Medicine
[2021-04-23] MEDS ORDERED: ONDANSETRON INJ 2 MG/ML 2 ML VIAL IV PRN (15:25)
[2021-04-23] MEDS ORDERED: LORazepam 1 MG/2 ML VIAL IV PRN (15:25)
--- NOTE | 2021-04-23 16:08 | Gastrointestinal Consultation ---
Date of Consultation April 23, 2021 Assessment & Plan (1) Acute diverticulitis: Present on Admission?: Yes (2) Abdominal pain: Present on Admission?: Yes (3) Constipation: Present on Admission?: Yes Recommend observation in the hospital with 2-3 days of IV antibiotics and pain and nausea control. We will follow the patient's progress and assist in care as needed. I anticipate improvement over the next few days, with discharge to outpatient care on oral antibiotics and follow up colonoscopy in 6-8 weeks. Repeat imaging and consult general surgery if her condition deteriorates in the hospital. History of Present Illness Reason for Consultation: Acute diverticulitis with severe abominal pain and obstipation Attending Physician: Wm Bautista History of Present Illness Patient began experiencing lower abdominal pain on 04/20/21 which became severe and persisent on the afternoon of 04/21/21, prompting an ER visit. A CT scan revealed uncomplicated sigmoid colon diverticulitis, and she was discharged with amoxicillin clavulanate and Miralax. Pain continued, accompanied by cramping and inability to defecate, for which she took pericolace in addition to the miralax, and one dose of oxycodone. Pain persisted and was disabling and she returned to the ER this afternoon. A repeat CT scan without oral contrast revealed the same uncomplicated sigmoid colon diverticulosis with no evidence of perforation, abscess, obstruction, impaction. Patient is admitted for IV antibiotic, pain control, and observation. No past hisory of episodes of diverticulitis Allergies Allergy/AdvReac Type Severity Reaction Status Date / Time No Known Drug Allergies Allergy Verified 03/04/21 13:48 Home Medications Medication Instructions Recorded Confirmed Type ferrous sulfate 325 mg (65 mg 325 mg PO [id number] tab 03/28/19 04/23/21 History iron) tablet cholecalciferol (vitamin D3) 125 5,000 unit PO DAILY 06/26/19 04/23/21 History mcg (5,000 unit) tablet (Vitamin D3) calcium polycarbophil 625 mg 1,250 mg PO DAILY #60 tab 07/04/19 04/23/21 Rx tablet (FiberCon) omeprazole 40 mg capsule,delayed 40 mg PO DAILY #30 cap 07/04/19 04/23/21 Rx release lorazepam 0.5 mg tablet 0.5 mg PO HS PRN tab 07/10/19 04/23/21 History pravastatin 20 mg tablet 20 mg PO DAILY 90 Days #90 tab 04/10/20 04/23/21 Rx diazepam 2 mg tablet (Valium) 2 mg PO BID PRN #10 tab 08/20/20 04/23/21 Rx naratriptan 2.5 mg tablet See Rx Instructions PO .COMPLEX 08/20/20 04/23/21 Rx #10 tab lisinopril 2.5 mg tablet 2.5 mg PO DAILY #90 tab 09/23/20 04/23/21 Rx clobetasol 0.05 % topical cream 1 applic TOP 2XWK #60 gm 11/05/20 04/23/21 Rx ondansetron 4 mg disintegrating 4 mg PO Q8H PRN #30 tab 11/12/20 04/23/21 Rx tablet calcium-vitamins B6-B12-FA tablet 1 tab PO DAILY #30 tab 12/13/20 04/23/21 Rx fluticasone propionate 50 1 spray INTNAS BID PRN ml 12/13/20 04/23/21 History mcg/actuation nasal spray,suspension (Flonase Allergy Relief) mecobalamin (vitamin B12) 1,000 See Rx Instructions PO DAILY 01/09/21 04/23/21 History mcg chewable tablet (B12 Active) [id number] 3.5 4 drp OTIC (EAR) TID 7 Days #10 ml 03/04/21 04/23/21 Rx mg-10,000 unit/mL-1 % ear drops,susp triamterene 37.5 1 cap PO DAILY #90 cap 03/28/21 04/23/21 Rx mg-hydrochlorothiazide 25 mg capsule levothyroxine 112 mcg tablet 112 mcg PO DAILY #30 tab 04/04/21 04/23/21 Rx amoxicillin 875 mg-potassium 1 tab PO BID #20 tab 04/22/21 04/23/21 Rx clavulanate 125 mg tablet (Augmentin) docusate sodium 100 mg capsule 100 mg PO BID #60 cap 04/22/21 04/23/21 Rx (Colace) oxycodone 5 mg tablet 5 mg PO Q6H PRN #14 tab 04/22/21 04/23/21 Rx sennosides 8.6 mg tablet (Senokot) 8.6 mg PO HS #30 tab 04/22/21 04/23/21 Rx Patient History Medical History (Updated 04/23/21 @ 16:36 by Wm Bautista MD) Anemia ETD (eustachian tube dysfunction) GERD (gastroesophageal reflux disease) History of long-term treatment with high-risk medication History of vertigo Hyperlipidemia Hypertension Hypothyroidism Insomnia TMJ syndrome Surgical History History of excision of lesion Hx of total knee arthroplasty Family History Mother Rheumatoid arthritis Hypertension Stroke Cancer Father Hypertension Stroke Cancer FH: deafness or hearing loss Family/Other Stroke Other Family history of blood clots Denies family history of Colon cancer Ovarian cancer Prostate cancer Myocardial infarction Breast cancer Social History Smoking Status: Never smoker Hx Alcohol Use: Yes Alcohol type: beer, wine and hard liquor Hx Substance Use: No Preferred Language: Welsh Communication Ability: Effective Visual Impairment: No Limitations Hearing Ability: Normal Yard Assistant Required: No Beliefs That Will Affect Care: None marital status: Current Living Situation: Spouse current occupational status: employed Feels Safe at Home: Yes Childhood Exposure to Second-Hand Smoke: No Dental Care, Regularly: Yes Physical Activity Frequency: 1-2 Times per Week Seatbelt Use: always Sunscreen Use: Yes Assistive Devices: None Review of Systems Review of Systems: As noted in the history. No additional significant findings Physical Exam Constitutional: In distress with abdominal pain and nausea Respiratory: normal respiratory effort, lungs clear to auscultation Cardiovascular: RRR, no murmur, no edema Gastrointestinal (Abdomen): The abdomen is flat, not distended or tympanitic, diffusely tender in the lower abdomen without rebound tenderness. Soft to light palpation without guarding Neurologic: No focal neurologic signs Results & Data ([facility]) Vital Signs (Past 12 Hours) Vital Signs Temp Pulse Pulse Resp BP BP Pulse Ox 04/23/21 15:00 63 22 123/72 99 04/23/21 14:30 59 L 21 111/65 96 04/23/21 14:00 62 22 111/63 97 04/23/21 13:30 58 L 13 112/70 98 04/23/21 13:27 59 L 16 116/70 97 04/23/21 13:26 61 18 116/70 95 04/23/21 12:23 37.1 C 57 L 18 132/75 95 04/23/21 12:09 58 L 58 L 22 115/63 115/63 93 04/23/21 12:08 94 04/23/21 11:56 57 L 20 132/[address] scan is reviewed: sigmoid colon wall thickening and pericolonic inflammation consistent with acute diverticulitis (1) Abdominal pain Abdominal location: lower abdomen, unspecified Qualified Code(s): R10.30 - Lower abdominal pain, unspecified (2) Constipation Constipation type: unspecified constipation type Qualified Code(s): K59.00 - Constipation, unspecified
[2021-04-23] MEDS ORDERED: SUMAtriptan succinate 6 MG/0.5 ML VIAL SQ PRN (16:49)
[2021-04-23] MEDS ORDERED: ACETAMINOPHEN 1000 MG/100 ML IV IV SCH (16:49)
[2021-04-23] MEDS ORDERED: MoRPHine SULFATE 4 MG/ML 1 ML CARP\\VIAL IV PRN (17:34)
[2021-04-23] MEDS: ACETAMINOPHEN 1,000 MG/100 ML VIAL IV SCH (17:37)
[2021-04-23] MEDS ORDERED: HYDROmorphone INJ 0.5 MG/0.5 ML SYR IV PRN (18:08)
--- NOTE | 2021-04-23 18:43 | Billing Data ---
Date of Service April 23, 2021 Coding Level of Care Code 70316 Initial Inpt Care Lvl 3
[2021-04-23] MEDS: NSS + 20MEQ KCL 20 MEQ/1,000 ML BAG IV SCH (20:02)
[2021-04-23] MEDS: cefTRIAXone SODIUM 2,000 MG in DEXTROSE 5% 50 ML IV SCH (21:26)
[2021-04-23] MEDS ORDERED: AMPICILLIN/SULBACTAM SOD 3,000 MG in 0.9 % SODIUM CHLORIDE 100 ML IV SCH (23:00)
[2021-04-23] MEDS: metroNIDAZOLE 500 MG/100 ML BAG IV SCH (23:09)
[2021-04-24] MEDS: NSS + 20MEQ KCL 20 MEQ/1,000 ML BAG IV SCH ×4 (03:31→20:23)
[2021-04-24] MEDS: ACETAMINOPHEN 1,000 MG/100 ML VIAL IV SCH ×3 (03:32→17:46)
[2021-04-24] MEDS: metroNIDAZOLE 500 MG/100 ML BAG IV SCH ×3 (05:47→22:44)
[2021-04-24 06:55] LABS: Basophils # (auto) 0.01 K/uL (0-0.2); Basophils % (auto) 0.1 %; Eosinophils # (auto) 0.17 K/uL (0-0.5); Hematocrit (blood only) 35.8 % (37-47); Hemoglobin 11.7 g/dL (12.0-16.0); Immature Granulocytes # (auto) 0.04 K/uL (0.00-0.02); Immature Granulocytes % (auto) 0.5 %; Lymphocytes # (auto) 1.78 K/uL (1.2-3.4); Lymphocytes % (auto) 20.9 %; Mean Corpuscular Hemoglobin 30.5 pg (25-34); Mean Corpuscular Hgb Conc 32.7 g/dL (32-36); Mean Corpuscular Volume 93.2 fL (80-100); Mean Platelet Volume 9.7 fL (7.4-10.4); Monocytes # (auto) 0.68 K/uL (0.11-0.59); Neutrophils # (auto) 5.82 K/uL (1.4-6.5); Neutrophils % (auto) 68.5 %; Platelet Count 244 K/uL (130-400); RDW Coefficient of Variation 13.3 % (11.5-14.5); RDW Standard Deviation 45.4 fL (36.4-46.3); Red Blood Count 3.84 M/uL (4.2-5.4)
[2021-04-24 07:25] LABS: Albumin Globulin Ratio 0.9 (0.9-2); Albumin Level 2.8 gm/dl (3.4-5.0); BUN Creatinine Ratio 13.4 (10-20); Bilirubin,Total 0.3 mg/dl (0.2-1); Calcium 8.8 mg/dl (8.5-10.1); Creatinine Clr Calc Pharmacy 98.9 ml/min; Est GFR (African American) 109.7 ml/min; Est GFR (Non-African American) 94.6 ml/min; Globulin 3.3 gm/dl (2.5-4.0); Magnesium 1.9 mg/dl (1.8-2.4); Phosphorus 2.8 mg/dl (2.5-4.9); Potassium 4.2 mmol/L (3.5-5.1); Total Protein 6.1 gm/dl (6.4-8.2)
--- NOTE | 2021-04-24 08:41 | Gastroenterology Progress Note ---
Date of Service April 24, 2021 Assessment & Plan (1) Acute diverticulitis: Plan: The patient is a pleasant 65-year-old female who presented to the emergency department after office evaluation and was subsequently admitted due to acute diverticulitis. She is currently n.p.o. She does feel thirsty. She is doing well this morning. She does have some continued abdominal discomfort. No nausea or vomiting. Has not had bowel movement. No white count this morning. Continues IV antibiotics. Plan is to continue IV antibiotics for 2 to 3 days total and transition to p.o. antibiotics. Will need colonoscopy in 6 to 8 weeks for follow-up. This will be arranged by my office. Please refer to supervising physician addendum for further recommendations. Admission and Anticipated Discharge Date Admission Date: April 23, 2021 Supervising Physician Co-Signing Physician Notes I have seen and examined the patient. I agree with note above by MARIANNA Kohli except as noted below. HPI Pt has left sided abd pain somewhat improved versus yesterday. No BMs for several days. PE Abdomen pos bs, soft, no guarding nor rebound A/P diverticulitis--continue IV abx for now. Colonoscopy as outpt 6-8 weeks after completion of abx therapy constipation--pt with constipation as outpt. Will give enema and if limited to no results will start miralax bowel prep to take until bowels start moving well. Told her is she has increased abd pain with prep then stop it. Subjective The patient is awake alert and oriented this morning. She is lying in bed and position of comfort. She states that she was able to get some sleep last night. Reports that she had last bowel movement on Wednesday with a small bowel movement on Wednesday. Progressive pain Wednesday and Wednesday prompting her to be seen in the office by Dr. Flores. She was then sent to the emergency department with subsequent admission for acute diverticulitis. She reports that her abdominal pain continues to be a 4 out of 10. She states it is mid to left- sided. No history of diverticulitis in the past. Last colonoscopy about 3 to 4 years ago per her report by Dr. Krueger. Upper endoscopy around December 2020. Patient denies any nausea or vomiting. No blood in her stools. Last bowel movement as noted Wednesday/Wednesday. She is currently n.p.o. She is thirsty. She states she is passing small amounts of flatus. Review of Systems Review of Systems: All systems reviewed & are unremarkable except as noted in Subjective Physical Exam Respiratory: normal respiratory effort, lungs clear to auscultation Cardiovascular: RRR, no murmur, no edema Gastrointestinal (Abdomen): Inspection/Auscultation: abdomen normal to inspection; abdomen not distended Percussion/Palpation: + abdomen tender (Mid to left lower), abdomen soft and + tympanic to percussion; no guarding and abdomen not rigid Results & Data ([facility]) Vital Signs (Past 12 Hours) Vital Signs Temp Pulse Pulse Resp BP Pulse Ox 04/24/21 08:01 36.8 C 66 15 122/78 92 04/23/21 23:00 36.5 C 51 L 16 112/65 96 Laboratory Results Laboratory Results - last 24 hr 04/23/21 04/23/21 04/23/21 12:12 12:12 13:15 WBC 10.57 RBC 3.98 L Hgb 12.5 Hct 36.6 L MCV 92.0 MCH 31.4 MCHC 34.2 RDW Std Deviation 44.6 RDW Coeff of Juan 13.2 Plt Count 277 MPV 9.6 Immature Gran % (Auto) 0.2 Neut % (Auto) 75.9 Lymph % (Auto) 16.0 [place] % (Auto) 7.1 Eos % (Auto) 0.7 Baso % (Auto) 0.1 Neut # (Auto) 8.03 H Lymph # (Auto) 1.69 [place] # (Auto) 0.75 H Eos # (Auto) 0.07 Baso # (Auto) 0.01 Immature Gran # (Auto) 0.02 Sodium 131 L Potassium 3.5 Chloride 99 Carbon Dioxide 28 Anion Gap 4.0 BUN 7 D Creatinine 0.59 L Est Cr Clr Drug Dosing 103.9 Est GFR ( Amer) 111.5 Est GFR (Non-Af Amer) 96.2 BUN/Creatinine Ratio 12.6 Glucose 96 Calcium 9.3 Phosphorus Magnesium Total Bilirubin 0.7 AST 14 L ALT 20 Alkaline Phosphatase 82 Total Protein 6.7 Albumin 3.2 L Globulin 3.5 Albumin/Globulin Ratio 0.9 Lipase 68 L Urine Color Yellow Urine Appearance Clear Urine pH 8.0 H Ur Specific [place] 1.009 Urine Protein Negative Urine Glucose (UA) Negative Urine Ketones Negative Urine Blood Negative Urine Nitrite Negative Urine Bilirubin Negative Urine Urobilinogen Negative Ur Leukocyte Esterase Negative COVID-19 Eval Order SARS-CoV-2 (PCR) 04/23/21 04/23/21 04/24/21 14:25 14:25 06:13 WBC 8.50 RBC 3.84 L Hgb 11.7 L Hct 35.8 L MCV 93.2 MCH 30.5 MCHC 32.7 RDW Std Deviation 45.4 RDW Coeff of Juan 13.3 Plt Count 244 MPV 9.7 Immature Gran % (Auto) 0.5 Neut % (Auto) 68.5 Lymph % (Auto) 20.9 [place] % (Auto) 8.0 Eos % (Auto) 2.0 Baso % (Auto) 0.1 Neut # (Auto) 5.82 Lymph # (Auto) 1.78 [place] # (Auto) 0.68 H Eos # (Auto) 0.17 Baso # (Auto) 0.01 Immature Gran # (Auto) 0.04 H Sodium Potassium Chloride Carbon Dioxide Anion Gap BUN Creatinine Est Cr Clr Drug Dosing Est GFR ( Amer) Est GFR (Non-Af Amer) BUN/Creatinine Ratio Glucose Calcium Phosphorus Magnesium Total Bilirubin AST ALT Alkaline Phosphatase Total Protein Albumin Globulin Albumin/Globulin Ratio Lipase Urine Color Urine Appearance Urine pH Ur Specific [place] Urine Protein Urine Glucose (UA) Urine Ketones Urine Blood Urine Nitrite Urine Bilirubin Urine Urobilinogen Ur Leukocyte Esterase COVID-19 Eval Order Covid19 at [facility] SARS-CoV-2 (PCR) NEGATIVE 04/24/21 06:13 WBC RBC Hgb Hct MCV MCH MCHC RDW Std Deviation RDW Coeff of Juan Plt Count MPV Immature Gran % (Auto) Neut % (Auto) Lymph % (Auto) [place] % (Auto) Eos % (Auto) Baso % (Auto) Neut # (Auto) Lymph # (Auto) [place] # (Auto) Eos # (Auto) Baso # (Auto) Immature Gran # (Auto) Sodium 135 L Potassium 4.2 D Chloride 103 Carbon Dioxide 25 Anion Gap 6.0 BUN 8 Creatinine 0.62 Est Cr Clr Drug Dosing 98.9 Est GFR ( Amer) 109.7 Est GFR (Non-Af Amer) 94.6 BUN/Creatinine Ratio 13.4 Glucose 82 Calcium 8.8 Phosphorus 2.8 Magnesium 1.9 Total Bilirubin 0.3 AST 11 L ALT 18 Alkaline Phosphatase 74 Total Protein 6.1 L Albumin 2.8 L Globulin 3.3 Albumin/Globulin Ratio 0.9 Lipase Urine Color Urine Appearance Urine pH Ur Specific [place] Urine Protein Urine Glucose (UA) Urine Ketones Urine Blood Urine Nitrite Urine Bilirubin Urine Urobilinogen Ur Leukocyte Esterase COVID-19 Eval Order SARS-CoV-2 (PCR)
[2021-04-24] MEDS ORDERED: SOD PHOSPHATE/SOD BIPHOSPHATE ENEMA 132 ML BTL PR STA (14:04)
--- NOTE | 2021-04-24 17:41 | Hospitalist Progress Note ---
Date of Service April 24, 2021 Assessment & Plan (1) Diverticulitis: Plan: Reema Kruse is a 65y/o F with PMH significant for HLD, HTN, hypothyroidism, and vestibular migraines; who presents for concern of failed outpatient management of diverticulitis. Diverticulitis: -CT abdomen pelvis demonstrating acute sigmoid diverticulitis unchanged as compared to CT from 04/22 -as outpatient was on Augmentin regimen that had been started on 04/22 -in ED received Unasyn IV --> transition to IV Ceftriaxone and Flagyl for continued treatment while inpatient --> transition to PO abx after 2-3 days -NSS w/ 20meq of KCl -Tylenol 1000mg Q8h scheduled, with Morphine 4mg q2h PRN breakthrough pain -Will need colonoscopy in 6 to 8 weeks for follow-up. -Advanced to regular diet Vestibular migraines: -converted home regimen of naratriptan and Diazepam/Ativan PRN to as needed SQ sumatriptan and IV ativan Chronic Medical Conditions: HTN: hold home lisinopril- BP stable HLD: hold home pravastatin Hypothyroidism: hold home Synthroid Diet: regular CODE STATUS: full (2) Vestibular migraine: (3) Hyperlipidemia: (4) Hypertension: (5) Hypothyroidism: Admission and Anticipated Discharge Date Admission Date: April 23, 2021 Supervising Physician Co-Signing Physician Notes I personally examined the patient and verified all gtz points of history and exam, discussed case, and agree with decision making with Dr Thomas Pain improved. Would like to try eating. Has not had a bowel movement. Vitals noted, in general she is awake and alert pleasant no distress. Does appear fatigued. HEENT normocephalic atraumatic mucous membranes moist. Breathing unlabored no accessory muscle use good effort. Abdomen is soft it is diffusely tender worse infraumbilical, but there is no guarding/rebound/rigiditysubjectively exam almost identical to yesterday, objectively she notes that it is actually less tender. Neuro without focal deficits. Diverticulitis -Would not say she failed -Here for symptom management -Try normal diet Continue IV antibiotics until she shows improvement, as needed's for pain and nausea, home on p.o. antibiotics once pain is under better control. otherwise as above Subjective She is not feeling much pain but some discomfort in her lower abdomen especially on the left side. Has not had a bowel movement since Wednesday. NPO. Wishes to eat. Denies fever, chest pain, SOB, N/V. +constipation. Review of Systems Review of Systems: All systems reviewed & are unremarkable except as noted in HPI & below Physical Exam Constitutional: + acute distress Neck: trachea midline, no thyromegaly Respiratory: normal respiratory effort, lungs clear to auscultation Cardiovascular: RRR, no murmur, no edema Gastrointestinal (Abdomen): Inspection/Auscultation: abdomen normal to inspection Percussion/Palpation: + abdomen tender and abdomen soft; no guarding, abdomen not rigid and no hepatosplenomegaly bowel sounds present Musculoskeletal: no cyanosis or clubbing, extremities motor strength 5/5 Psychiatric: A&O x3 Results & Data Results & Data ([facility]) Vital Signs (Past 12 Hours) Vital Signs Temp Pulse Pulse Resp BP Pulse Ox 04/24/21 15:33 36.9 C 55 L 16 125/74 95 04/24/21 08:01 36.8 C 66 15 122/78 92 Resident Activity Tracking Resident Involvement: Resident Care Provided Care Provided: Adult Hospital Medicine
[2021-04-24] MEDS: POLYETHYLENE (MIRALAX) 17 GM PACK PO SCH ×4 (17:45→20:32)
--- NOTE | 2021-04-24 18:30 | Billing Data ---
Date of Service April 24, 2021 Coding Level of Care Code 62805 Subseq Hosp Care Lvl 2
[2021-04-24] MEDS: cefTRIAXone SODIUM 2,000 MG in DEXTROSE 5% 50 ML IV SCH (21:31)
[2021-04-25] MEDS: ACETAMINOPHEN 1,000 MG/100 ML VIAL IV SCH ×2 (02:45→09:07)
[2021-04-25] MEDS: NSS + 20MEQ KCL 20 MEQ/1,000 ML BAG IV SCH (05:12)
[2021-04-25] MEDS: metroNIDAZOLE 500 MG/100 ML BAG IV SCH (05:12)
--- NOTE | 2021-04-25 08:42 | Gastroenterology Progress Note ---
Date of Service April 25, 2021 Assessment & Plan (1) Acute diverticulitis: Plan: The patient is doing well this morning. She is feeling significantly better. Bowel movement after MiraLAX bowel prep. Advancing diet as tolerated. Maintain low fiber diet in the setting of diverticulitis. She would like to be discharged today. Okay to transition to p.o. antibiotics. Will arrange follow- up in the GI office and schedule colonoscopy for 6 to 8 weeks for follow-up. Please refer to supervising physician addendum for further recommendations. Admission and Anticipated Discharge Date Admission Date: April 23, 2021 Supervising Physician Co-Signing Physician Notes Pt discharged prior to my rounds today so not seen. Subjective The patient is awake alert and oriented this morning sitting in the bedside chair watching a show on her tablet. She states she feels much better this morning. She did have a rough night as she was up frequently due to the need to have a bowel movement. She did take MiraLAX orally yesterday and although she experienced nausea she denied other complaints. No nausea or vomiting today. Reports frequent bowel movements. She does have some abdominal tenderness after 70 bowel movement yesterday left lower quadrant is worse area of pain. Denies any fever overnight. Denies melena or hematochezia in stool. She did tolerate soup and crackers yesterday. She would like to go home today. Review of Systems Review of Systems: All systems reviewed & are unremarkable except as noted in Subjective Physical Exam Gastrointestinal (Abdomen): Inspection/Auscultation: abdomen normal to inspection and normal bowel sounds; abdomen not distended Percussion/Palpation: + abdomen tender (Left lower quadrant) and abdomen soft; no guarding and abdomen not rigid Results & Data ([facility]) Vital Signs (Past 12 Hours) Vital Signs Temp Pulse Resp BP Pulse Ox 04/25/21 07:52 36.5 C 55 L 16 146/90 H 96 Laboratory Results Laboratory Results - last 48 hr 04/23/21 04/23/21 04/23/21 12:12 12:12 13:15 WBC 10.57 RBC 3.98 L Hgb 12.5 Hct 36.6 L MCV 92.0 MCH 31.4 MCHC 34.2 RDW Std Deviation 44.6 RDW Coeff of Juan 13.2 Plt Count 277 MPV 9.6 Immature Gran % (Auto) 0.2 Neut % (Auto) 75.9 Lymph % (Auto) 16.0 [place] % (Auto) 7.1 Eos % (Auto) 0.7 Baso % (Auto) 0.1 Neut # (Auto) 8.03 H Lymph # (Auto) 1.69 [place] # (Auto) 0.75 H Eos # (Auto) 0.07 Baso # (Auto) 0.01 Immature Gran # (Auto) 0.02 Sodium 131 L Potassium 3.5 Chloride 99 Carbon Dioxide 28 Anion Gap 4.0 BUN 7 D Creatinine 0.59 L Est Cr Clr Drug Dosing 103.9 Est GFR ( Amer) 111.5 Est GFR (Non-Af Amer) 96.2 BUN/Creatinine Ratio 12.6 Glucose 96 Calcium 9.3 Phosphorus Magnesium Total Bilirubin 0.7 AST 14 L ALT 20 Alkaline Phosphatase 82 Total Protein 6.7 Albumin 3.2 L Globulin 3.5 Albumin/Globulin Ratio 0.9 Lipase 68 L Urine Color Yellow Urine Appearance Clear Urine pH 8.0 H Ur Specific [place] 1.009 Urine Protein Negative Urine Glucose (UA) Negative Urine Ketones Negative Urine Blood Negative Urine Nitrite Negative Urine Bilirubin Negative Urine Urobilinogen Negative Ur Leukocyte Esterase Negative COVID-19 Eval Order SARS-CoV-2 (PCR) 04/23/21 04/23/21 04/24/21 14:25 14:25 06:13 WBC 8.50 RBC 3.84 L Hgb 11.7 L Hct 35.8 L MCV 93.2 MCH 30.5 MCHC 32.7 RDW Std Deviation 45.4 RDW Coeff of Juan 13.3 Plt Count 244 MPV 9.7 Immature Gran % (Auto) 0.5 Neut % (Auto) 68.5 Lymph % (Auto) 20.9 [place] % (Auto) 8.0 Eos % (Auto) 2.0 Baso % (Auto) 0.1 Neut # (Auto) 5.82 Lymph # (Auto) 1.78 [place] # (Auto) 0.68 H Eos # (Auto) 0.17 Baso # (Auto) 0.01 Immature Gran # (Auto) 0.04 H Sodium Potassium Chloride Carbon Dioxide Anion Gap BUN Creatinine Est Cr Clr Drug Dosing Est GFR ( Amer) Est GFR (Non-Af Amer) BUN/Creatinine Ratio Glucose Calcium Phosphorus Magnesium Total Bilirubin AST ALT Alkaline Phosphatase Total Protein Albumin Globulin Albumin/Globulin Ratio Lipase Urine Color Urine Appearance Urine pH Ur Specific [place] Urine Protein Urine Glucose (UA) Urine Ketones Urine Blood Urine Nitrite Urine Bilirubin Urine Urobilinogen Ur Leukocyte Esterase COVID-19 Eval Order Covid19 at [facility] SARS-CoV-2 (PCR) NEGATIVE 04/24/21 06:13 WBC RBC Hgb Hct MCV MCH MCHC RDW Std Deviation RDW Coeff of Juan Plt Count MPV Immature Gran % (Auto) Neut % (Auto) Lymph % (Auto) [place] % (Auto) Eos % (Auto) Baso % (Auto) Neut # (Auto) Lymph # (Auto) [place] # (Auto) Eos # (Auto) Baso # (Auto) Immature Gran # (Auto) Sodium 135 L Potassium 4.2 D Chloride 103 Carbon Dioxide 25 Anion Gap 6.0 BUN 8 Creatinine 0.62 Est Cr Clr Drug Dosing 98.9 Est GFR ( Amer) 109.7 Est GFR (Non-Af Amer) 94.6 BUN/Creatinine Ratio 13.4 Glucose 82 Calcium 8.8 Phosphorus 2.8 Magnesium 1.9 Total Bilirubin 0.3 AST 11 L ALT 18 Alkaline Phosphatase 74 Total Protein 6.1 L Albumin 2.8 L Globulin 3.3 Albumin/Globulin Ratio 0.9 Lipase Urine Color Urine Appearance Urine pH Ur Specific [place] Urine Protein Urine Glucose (UA) Urine Ketones Urine Blood Urine Nitrite Urine Bilirubin Urine Urobilinogen Ur Leukocyte Esterase COVID-19 Eval Order SARS-CoV-2 (PCR)
[2021-04-25] MEDS ORDERED: LEVOTHYROXINE SODIUM 112 MCG TABLET PO SCH (09:00)
[2021-04-25] MEDS ORDERED: lisinopril 2.5 MG TAB PO SCH (09:00)
[2021-04-25] MEDS ORDERED: TRIAMTERENE/HCTZ 37.5/25MG CAP PO SCH (09:00)
--- NOTE | 2021-04-25 13:24 | Discharge Summary ---
Date of Service April 25, 2021 Admission HPI Per Admitting Provider Reema Kruse is a 65y/o F with PMH significant for HLD, HTN, hypothyroidism, and vestibular migraines; who presents for concern of failed outpatient management of diverticulitis. Pain originally started approximately 3 days ago, and over the last several days had worsened with intermittent abdominal pain, and associated cramping and nausea. Ultimately resulting in her presentation to the ED on 04/22, during that visit she had a CT that demonstrated uncomplicated sigmoid diverticulitis, and with her pain being somewhat controlled she as discharged home on Augmentin. After a couple hours at home, she was noticing that she had the urge to stool, but could not have a bowel movement, as a result of this she took multiple doses of miralax, colace, and senokot. Following this she noticed drastic increase in her abdominal pain and discomfort, and called her primary GI doctor who recommended she be seen and evaluated in the ED for failed outpatient management and concern for perforation. Prior to admission, she continued to endorse constipation with feeling of need to defecate. Continues to note some abdominal pain, but feels like this has been slightly been improved by the IV pain medication. Desires to avoid narcotics if possible out of concern of slowing bowel movements. Principal Diagnosis Diverticulitis Discharge Exam Constitutional well developed, well nourished and + acute distress (very minimal) Neck trachea midline, no thyromegaly Respiratory normal respiratory effort, lungs clear to auscultation Cardiovascular RRR, no murmur, no edema Gastrointestinal (Abdomen) Inspection/Auscultation: abdomen normal to inspection Percussion/Palpation: + abdomen tender (very mildly tender) and abdomen soft; no guarding, abdomen not rigid and no hepatosplenomegaly Musculoskeletal no cyanosis or clubbing, extremities motor strength 5/5 Discharge Data Allergies Allergy/AdvReac Type Severity Reaction Status Date / Time No Known Drug Allergies Allergy Verified 03/04/21 13:48 Consultations 04/23/21 14:35 ED Decision to Admit Stat Ordered Studies 04/23/21 11:54 CT abd pelvis wo con Stat Hospital Course (1) Diverticulitis: Reema Kruse is a 65y/o F with PMH significant for HLD, HTN, hypothyroidism, and vestibular migraines; who presents for concern of failed outpatient management of diverticulitis. Diverticulitis: -CT abdomen pelvis demonstrating acute sigmoid diverticulitis unchanged as compared to CT from 04/22 -as outpatient was on Augmentin regimen that had been started on 04/22 -in ED received Unasyn IV --> transition to IV Ceftriaxone and Flagyl for continued treatment while inpatient --> transition to PO abx after 2-3 days; will be discharged and she can finish the Augmentin that she previously started on 04/22. She should have about 9 days left on the antibiotic. -Will need f/u colonoscopy in 6 to 8 weeks. Vestibular migraines: -converted home regimen of naratriptan and Diazepam/Ativan PRN to as needed SQ sumatriptan and IV ativan --> continue home meds after discharge Chronic Medical Conditions: HTN: cont. home meds HLD: cont. home meds Hypothyroidism: cont. home meds (2) Vestibular migraine: (3) Hyperlipidemia: (4) Hypertension: (5) Hypothyroidism: Total Time Total Time Spent Total Time Spent (In Minutes): <30 Discharge Plan Discharge Items Patient Disposition: Home - Self-Care Reason For Visit: Abd pain Discharge Diagnosis: Diverticulitis Condition on Discharge: Good Activity: Per Instructions section Non-emergency contact: Primary Care Provider Call non-emergency contact if: you have any medication questions, your symptoms worsen, your pain is not controlled and your pain is worsening Follow-up/Referrals: Manas Fulton MD [Primary Care Provider] - 05/01/21 2:15 pm (You will be see solo Gill) Corky Krueger [Physician] - (colonoscopy in 6-8 weeks) Diet: Regular and Low Fiber Addtl Attending Provider Instructions: Ms. Kruse, you were admitted to the hospital for diverticulitis causing you abdominal pain and constipation. As discussed in the hospital, diverticulitis is an infection that takes a course of antibiotics to treat and will take a couple of weeks for your pain/discomfort symptoms to go away. It seems like you turned a corner today and feel much better from the past few days. The constipation seems resolved so you can eat a regular diet although it is recommended you eat try to keep a low fiber diet for optimal results. Going forward, be sure to complete your Augmentin prescription that you have at home as this will treat the infection. Stay very hydrated and continue your daily activities as tolerated. Continue your home medications as you were and be sure to follow up with your primary care provider, especially if you have any concerns or worsening symptoms. You may use Tylenol or Ibprofen for pain relief as instructed on the label. Please follow up with your GI doctor in 6-8 weeks at which time a colonoscopy should be performed for further evaluation. Pending Studies at Discharge: No Stand-Alone Forms: My [facility] Medications and DC Order Prescriptions: Continued lisinopril 2.5 mg tablet 2.5 mg PO DAILY Qty: 90 RF: 3 ondansetron 4 mg tablet,disintegrating 4 mg PO Q8H PRN (Reason: nausea and vomiting) Qty: 30 RF: 3 B12 Active 1,000 mcg tablet,chewable See Rx Instructions PO DAILY RF: 0 triamterene-hydrochlorothiazid 37.5-25 mg capsule 1 cap PO DAILY Qty: 90 RF: 3 levothyroxine 112 mcg tablet 112 mcg PO DAILY Qty: 30 RF: 5 omeprazole 40 mg capsule,delayed release(DR/EC) 40 mg PO DAILY Qty: 30 RF: 2 calcium polycarbophil [FiberCon] 625 mg tablet 1,250 mg PO DAILY Qty: 60 RF: 0 fluticasone propionate [Flonase Allergy Relief] 50 mcg/actuation spray,suspension 1 spray INTNAS BID PRN (Reason: Nasal Congestion) RF: 0 calcium-vitamins B6-B12-FA Tablet 1 tab PO DAILY Qty: 30 RF: 0 clobetasol 0.05 % cream 1 applic TOP 2XWK Qty: 60 RF: 0 wsaufuyr-vdluszsmf-XE 3.5-10,000-1 mg/mL-unit/mL-% drops,suspension 4 drp otic (ear) TID 7 Days Qty: 10 RF: 3 pravastatin 20 mg tablet 20 mg PO DAILY 90 Days Qty: 90 RF: 3 naratriptan 2.5 mg tablet See Rx Instructions PO .COMPLEX Qty: 10 RF: 3 diazepam [Valium] 2 mg tablet 2 mg PO BID PRN (Reason: dizziness or vertigo) Qty: 10 RF: 3 ferrous sulfate 325 mg (65 mg iron) tablet 325 mg PO [id number] RF: 0 lorazepam 0.5 mg tablet 0.5 mg PO HS PRN (Reason: Anxiety) RF: 0 cholecalciferol (vitamin D3) [Vitamin D3] 5,000 unit Tablet 5,000 unit PO DAILY RF: 0 sennosides [Senokot] 8.6 mg tablet 8.6 mg PO HS Qty: 30 RF: 0 docusate sodium [Colace] 100 mg capsule 100 mg PO BID Qty: 60 RF: 0 amoxicillin-pot clavulanate [Augmentin] 875-125 mg tablet 1 tab PO BID Qty: 20 RF: 0 oxycodone 5 mg tablet 5 mg PO Q6H PRN (Reason: pain) Qty: 14 RF: 0 Discharge Orders: Discharge Order (Routine); Ordered 04/25/21 Ordered By: Stalin Thomas Admission Data Admit Date/Time: 04/23/21 14:47 Attending Provider: Lior Mayberry Admit Provider: Jn Cosme Primary Care Provider: Manas Fulton Other Providers: John Bruno Other Interventions: Discharge Summary Assessment (RN) Last Done: 04/25/21 13:31 Supervising Physician Co-Signing Physician Notes I personally examined the patient and verified all gtz points of history and exam, discussed case, and agree with decision making with Dr Thomas Pain improved. Eating well. Had bowel movement. Would like to go home. Vitals noted, in general she is awake and alert pleasant no distress. Does appear fatigued. HEENT normocephalic atraumatic mucous membranes moist. Breathing unlabored no accessory muscle use good effort. Abdomen is soft it is diffusely tender worse infraumbilical, but there is no guarding/rebound/rigidityable to press much harder before eliciting tenderness. No guarding rebound or rigidity again.. Neuro without focal deficits. Diverticulitis -Would not say she failed -Feeling good enough for home -Finish Augmentin otherwise as above Resident Activity Tracking Resident Involvement: Resident Care Provided Care Provided: Adult Hospital Medicine
--- NOTE | 2021-04-25 18:18 | Billing Data ---
Date of Service April 25, 2021 Coding Level of Care Code D/C DAY MANAGEMENT <30 MINS
== END 2021-04-25 14:42 | disposition home or self-care (01) | DRG 392 ==
LOC: ED 11:41 → 3N 14:47

== ENCOUNTER 2022-07-02 06:35 | Observation (INO) ==
--- NOTE | 2022-06-09 13:07 | PAT Medication Instructions ---
Medication Instructions Date of Service June 09, 2022 Home Medications Medication Instructions Recorded diazepam 2 mg tablet (Valium) 2 mg PO BID PRN dizziness or 08/20/20 vertigo #10 tabs ondansetron 4 mg disintegrating 4 mg PO Q8H PRN nausea and 11/12/20 tablet vomiting #30 tabs docusate sodium 100 mg capsule 100 mg PO BID #60 caps 04/22/21 (Colace) oxycodone 5 mg tablet 5 mg PO Q6H PRN pain #14 tabs 04/22/21 clobetasol 0.05 % topical cream See Rx Instructions .Route 02/25/22 .COMPLEX #60 grams prochlorperazine maleate 10 mg 10 mg PO Q8H PRN nausea and 03/13/22 tablet (Compazine) vomiting #20 tabs lorazepam 0.5 mg tablet 0.5 mg PO HS PRN Anxiety #30 tabs 05/13/22 ferrous sulfate 325 mg (65 mg iron) tablet 325 mg PO UD cholecalciferol (vitamin D3) 125 mcg (5,000 unit) tablet (Vitamin D3) 5,000 unit PO QAM diazepam 2 mg tablet (Valium) 2 mg PO BID PRN ondansetron 4 mg disintegrating tablet 4 mg PO Q8H PRN docusate sodium 100 mg capsule (Colace) 100 mg PO BID oxycodone 5 mg tablet 5 mg PO Q6H PRN calcium polycarbophil 625 mg tablet (FiberCon) 625 mg PO QAM naratriptan 2.5 mg tablet (Amerge) 2.5 mg PO UD PRN mecobalamin (vitamin B12) 1,000 mcg chewable tablet (B12 Active) 1,000 mcg PO UD clobetasol 0.05 % topical cream See Rx Instructions .Route .COMPLEX prochlorperazine maleate 10 mg tablet (Compazine) 10 mg PO Q8H PRN lorazepam 0.5 mg tablet 0.5 mg PO HS PRN azelastine 137 mcg (0.1 %) nasal spray aerosol 2 spray intranasal QAM PRN fluocinolone acetonide oil 0.01 % ear drops 3 drp otic (ear) QAM PRN fluticasone propionate 50 mcg/actuation nasal spray,suspension (Flonase Allergy Relief) 2 spray intranasal BID PRN ibuprofen 600 mg tablet 600 mg PO Q8H PRN levothyroxine 112 mcg tablet 112 mcg PO QAM lisinopril 2.5 mg tablet 2.5 mg PO QAM omeprazole 40 mg capsule,delayed release 40 mg PO QAM pravastatin 20 mg tablet 20 mg PO UD triamterene 37.5 mg-hydrochlorothiazide 25 mg capsule 1 cap PO UD Continue as directed ondansetron 4 mg disintegrating tablet 4 mg PO Q8H PRN(if needed) naratriptan 2.5 mg tablet (Amerge) 2.5 mg PO UD PRN(if needed) prochlorperazine maleate 10 mg tablet (Compazine) 10 mg PO Q8H PRN(if needed) ASK your surgeon for instructions ibuprofen 600 mg tablet 600 mg PO Q8H PRN STOP taking 24 hours before surgery clobetasol 0.05 % topical cream See Rx Instructions .Route .COMPLEX azelastine 137 mcg (0.1 %) nasal spray aerosol 2 spray intranasal QAM PRN(if needed) DO NOT take the morning of surgery ferrous sulfate 325 mg (65 mg iron) tablet 325 mg PO UD cholecalciferol (vitamin D3) 125 mcg (5,000 unit) tablet (Vitamin D3) 5,000 unit PO QAM docusate sodium 100 mg capsule (Colace) 100 mg PO BID calcium polycarbophil 625 mg tablet (FiberCon) 625 mg PO QAM mecobalamin (vitamin B12) 1,000 mcg chewable tablet (B12 Active) 1,000 mcg PO UD lisinopril 2.5 mg tablet 2.5 mg PO QAM triamterene 37.5 mg-hydrochlorothiazide 25 mg capsule 1 cap PO UD Take morning of surgery With a small sip of water, OTHERWISE NOTHING TO EAT OR DRINK AFTER MIDNIGHT: diazepam 2 mg tablet (Valium) 2 mg PO BID PRN(if needed) oxycodone 5 mg tablet 5 mg PO Q6H PRN(if needed) fluocinolone acetonide oil 0.01 % ear drops 3 drp otic (ear) QAM PRN(if needed) fluticasone propionate 50 mcg/actuation nasal spray,suspension (Flonase Allergy Relief) 2 spray intranasal BID PRN(if needed) levothyroxine 112 mcg tablet 112 mcg PO QAM omeprazole 40 mg capsule,delayed release 40 mg PO QAM pravastatin 20 mg tablet 20 mg PO UD Take evening before surgery diazepam 2 mg tablet (Valium) 2 mg PO BID PRN(if needed) docusate sodium 100 mg capsule (Colace) 100 mg PO BID oxycodone 5 mg tablet 5 mg PO Q6H PRN(if needed) lorazepam 0.5 mg tablet 0.5 mg PO HS PRN(if needed) fluticasone propionate 50 mcg/actuation nasal spray,suspension (Flonase Allergy Relief) 2 spray intranasal BID PRN(if needed) Other Notes If you have any questions please call us at [phone] or [phone] or [phone] or [phone]
--- NOTE | 2022-06-16 15:35 | Anesthesiology Consultation ---
Date of Service June 16, 2022 Assessment & Plan (1) Encounter for pre-operative examination: - Outpatient joint assessment: Patient is currently scheduled for inpatient pathway. If re-evaluated pending system levels during current pandemic/surgeon requests outpatient pathway, per discussion with Dr. Zapata as Dr. Naranjo was unavailable at time of OPJ review, patient is acceptable candidate for outpatient joint program from anesthesia standpoint pending surgeon's office assessment of pt motivation/support/completion of same day joint program preop requirements. - Suspected PFO on 2018 echo without other notation in records discussed with Dr. Naranjo who advised patient acceptable to proceed with surgery from anesthesia standpoint, advised forwarding FYI note to surgeon and PCP for continuity of care. To surgeon's discretion if acceptable to proceed. Chart Review Chart Review: Acceptable Risk for Surgery and Patient seen in Pre Admission Testing Teaching & Discussion Pre-Anesthesia Teaching/Discussion Notes: Instructed NPO after midnight before surgery, except medications with 15 cc of water. Medication instructions provided according to the PAT guidelines. History Surgery Operation Date: 07/02/22 11:00 Proposed Procedures p Right Total Hip Arthroplasty - Yaron Geller MD Height/Weight Height: 5 ft 4 in Weight: 84.5 kg Allergies Allergy/AdvReac Type Severity Reaction Status Date / Time No Known Drug Allergies Allergy Verified 06/17/22 17:00 Medications Home Medications Medication Instructions Recorded Confirmed Last Taken ferrous sulfate 325 mg (65 mg 325 mg PO UD 03/28/19 06/17/22 11/26/21 iron) tablet cholecalciferol (vitamin D3) 125 5,000 unit PO QAM 06/26/19 06/17/22 11/28/21 mcg (5,000 unit) tablet (Vitamin D3) diazepam 2 mg tablet (Valium) 2 mg PO BID PRN dizziness or 08/20/20 06/17/22 Unknown vertigo #10 tabs ondansetron 4 mg disintegrating 4 mg PO Q8H PRN nausea and 11/12/20 06/17/22 11/27/21 tablet vomiting #30 tabs docusate sodium 100 mg capsule 100 mg PO BID #60 caps 04/22/21 06/17/22 11/27/21 (Colace) oxycodone 5 mg tablet 5 mg PO Q6H PRN pain #14 tabs 04/22/21 06/17/22 Unknown calcium polycarbophil 625 mg 625 mg PO QAM 06/10/21 06/17/22 11/27/21 tablet (FiberCon) naratriptan 2.5 mg tablet (Amerge) 2.5 mg PO UD PRN migraines 11/28/21 06/17/22 Unknown mecobalamin (vitamin B12) 1,000 1,000 mcg PO UD 12/12/21 06/17/22 Unknown mcg chewable tablet (B12 Active) clobetasol 0.05 % topical cream See Rx Instructions .Route 02/25/22 06/17/22 Unknown .COMPLEX #60 grams prochlorperazine maleate 10 mg 10 mg PO Q8H PRN nausea and 03/13/22 06/17/22 Unknown tablet (Compazine) vomiting #20 tabs lorazepam 0.5 mg tablet 0.5 mg PO HS PRN Anxiety #30 tabs 05/13/22 06/17/22 Unknown azelastine 137 mcg (0.1 %) nasal 2 spray intranasal QAM PRN 06/09/22 06/17/22 Unknown spray aerosol Congestion fluocinolone acetonide oil 0.01 % 3 drp otic (ear) QAM PRN ear 06/09/22 06/17/22 Unknown ear drops itching fluticasone propionate 50 2 spray intranasal BID PRN 06/09/22 06/17/22 Unknown mcg/actuation nasal Congestion spray,suspension (Flonase Allergy Relief) ibuprofen 600 mg tablet 600 mg PO Q8H PRN Pain 06/09/22 06/17/22 Unknown levothyroxine 112 mcg tablet 112 mcg PO QAM 06/09/22 06/17/22 Unknown lisinopril 2.5 mg tablet 2.5 mg PO QAM 06/09/22 06/17/22 Unknown omeprazole 40 mg capsule,delayed 40 mg PO QAM 06/09/22 06/17/22 Unknown release pravastatin 20 mg tablet 20 mg PO UD 06/09/22 06/17/22 Unknown triamterene 37.5 1 cap PO UD 06/09/22 06/17/22 Unknown mg-hydrochlorothiazide 25 mg capsule Past Medical History Medical History Anemia Clogged ear Diverticulitis GERD (gastroesophageal reflux disease) Headache History of COVID-19 History of vertigo Hyperlipidemia Hypertension Hypothyroidism Labial abscess Nausea after anesthesia Otalgia, left ear Pharyngitis, acute Vertigo Vestibular migraine Patient denies h/o stroke, seizures, heart attack, heart failure, DM, HTN, blood clots or blood transfusions. Exercise / Class Metabolic Activity II 4-5 Yardwork/Stairs/Walk up hill (denies CP or SOB with 1 FOS) Past Family History Family History Mother Rheumatoid arthritis Hypertension Stroke Cancer Father Hypertension Stroke Cancer FH: deafness or hearing loss Family/Other Stroke Other Family history of blood clots Denies family history of Colon cancer Ovarian cancer Prostate cancer Myocardial infarction Breast cancer Past Surgical History Surgical History History of esophagogastroduodenoscopy (EGD) History of excision of lesion Hx of arthroscopy of left knee Hx of colonoscopy with polypectomy Past Anesthesia History No Hx of Anesthesia Complications and No Family Hx of Anesthesia Complications History of PONV No Hx of Motion Sickness and History of PONV (denies needing scop patch) Social History Smoking Status: Never smoker Do You Dip or Chew Tobacco: No Hx Alcohol Use: Yes Alcohol type: beer and wine alcohol intake frequency: holidays/special occasions only Hx Substance Use: No substance use type: does not use Review of Systems Snoring, denies witnessed apneas. Patient denies chest pain, shortness of breath, dyspnea on exertion, fever, chills, cough, wheezing, or palpitations. Physical Exam Vital Signs Vitals BP 135/82 P 52 TEMP 98.5 SP02 97% on RA RESP 18 Physical Full cervical extension range of motion without pain TMD 3.5 finger breadths Mallampati Score 2 Lungs: normal respiratory effort. Clear throughout to auscultation, no adventit ious breath sounds Cardiac: regular rate and rhythm, no murmurs noted Carotid arteries: negative bruit bilat Lab Results Anesthesia Preop Results Results Anesthesia Widget: WBC 5.52 K/ul (4.8-10.8) 06/10/22 Hgb 13.1 g/dl (12.0-16.0) 06/10/22 Hct 38.7 % (34.1-44.9) 06/10/22 Plt 242 K/uL (130-400) 06/10/22 Na 134 mmol/L (136-145) L 06/10/22 K 4.1 mmol/L (3.5-5.1) 06/10/22 Cl 100 mmol/L (98-107) 06/10/22 CO2 25 mmol/L (21-32) 06/10/22 BUN 14 mg/dl (6-23) 06/10/22 Creat 0.75 mg/dl (0.6-1.2) 06/10/22 Glucose Level 99 mg/dl (70-99(Fasting)) 06/10/22 PT 10.3 Seconds (9.0-12.0) 06/10/22 PTT 26.9 Seconds (21.0-31.0) 06/10/22 INR 1.0 (0.9-1.1) 06/10/22 TSH 1.089 uIu/ml (0.300-4.500) 06/10/22 HA1c 5.8 % (4.5-5.6) H 06/16/22 Urine Appearance Clear 05/19/22 Blood Type O Positive 06/16/22 Antibody Screen NEGATIVE 06/16/22 Testing Electrocardiogram Date: 06/16/22 Sinus bradycardia, rate 54 bpm Chest X-Ray Date: 06/16/22 No acute chest disease. Echocardiogram Date: 06/27/19 EF 50-55% Normal LV wall motion Mild cLVH Grade II diastolic dysfunction PFO suspected No significant valvular pathology Other Testing Neck CTA 06/27/19 No evidence of dissection, focal vessel occlusion, or significant stenosis of the cervical arteries. COVID-19 Risk Screen Screening Information COVID-19 Screen Date: 06/18/22 Exposure 21 Days Family/Household +COVID Last 21 Days: No Exposure 10 Days Any COVID Exposure Last 10 Days: No Symptoms Last 10 Days Experienced COVID Sx Last 10 Days: No + COVID 0-90 Days COVID + in Last 0-90 Days: No
--- NOTE | 2022-06-17 15:31 | History & Physical Report ---
Date of Service June 17, 2022 Assessment & Plan (1) Osteoarthritis of right hip: Plan: PRE-OP Diagnosis: Right hip osteoarthritis Planned Procedure: Right total hip arthroplasty Plan: Patient is scheduled to undergo this procedure at the [facility] with a 23-hour observation admission with Dr. Geller on June. Risks and complications of the procedure such as: Infection, bleeding, pain, scarring, nerve blood vessel damage, weakness, wound problems, stiffness, incomplete relief of symptoms, hardware failure, hardware loosening, wear, fracture, tendon or ligament injury, dislocation, leg length inequality, blood clots, Embolism, heart attack, stroke and were explained to the patient at her visit today. Informed consent to perform the procedure was obtained. Patient also understands risks of proceeding with surgical intervention during the COVID-19 pandemic. Currently she is asymptomatic. Patient is also not been in contact with anyone positive for the virus so testing is not indicated. Patient has an appointment to meet with anesthesia later this morning and while there will obtain CBC with differential, complete metabolic panel, PT/INR, blood type and screen, urinalysis, urine culture and se nsitivity, EKG, hemoglobin A1c and a nasal culture for MRSA. Patient will also need preoperative medical clearance from their primary care provider Dr. Fulton, who she will see tomorrow. Patient states that she plans on doing in-home physical therapy for the first 1 to 2 weeks postoperatively with [facility]. Patient states that she will most likely elect to do outpatient physical therapy at a facility near her home. Patient will need a walker, raised toilet seat, shower chair and a hip kit. During today's visit we reviewed the total hip packet as well as precautions. We discussed discharge planning from the hospital. I provided paperwork to obtain a handicap placard for their vehicle. We discussed lectures offered by [facility] in regards to joint replacement surgery via Zoom. I advised the patient that upon discharge from hospital we will prescribe a narcotic pain medication and anti- inflammatory. Patient will also be on an 81 mg aspirin twice daily for blood clot prevention. Patient will be scheduled for 2-week postoperative follow-up visit with myself on July 17 at 2 PM. At that visit we will Provide the patient with an order for outpatient physical therapy and rehab protocol. Patient verbalizes understanding of all information provided during today's visit. Patient thanks for the care that she received. If she or her emmanuel s questions or concerns that should arise prior to her surgery, they will contact clinic. This chart was completed utilizing [employer] voice recognition software. Grammatical errors, random word insertions, pronoun errors, and in complete sentences are an occasional consequence of the system. Any questions or concerns about the content, text, or information contained within the body of t his dictation should be addressed directly to the physician for clarification. History of Present Illness Chief Complaint: Chief Complaint: Right hip pain Primary Care Provider: Manas Fulton MD History of Present Illness (including history relevant to procedure): This 66-year-old female presents the clinic today for preoperative history and physical. Patient has a 1 year history of significant right-sided hip pain that is caused her to begin walking with an antalgic gait. She feels a burning sensation in the lateral hip with intermittent radiation into her groin. Pain is exacerbated when she transitions from a seated to a standing position and with any type of activity. She has tried a corticosteroid injection without relief. She has also tried various [id number] nonsteroidal agents that were ineffective. Currently she is using 600 mg of ibuprofen 3-4 times daily. Review Of Systems: A 12 point review of systems is performed and is unremarkable except for those things stated in the HPI and past medical history. Past Medical History: Problems: Osteoarthritis of right hip Plantar fasciitis Left knee pain Intestinal metaplasia of gastric mucosa Lizarraga esophagus S/P left knee arthroscopy Pre-op exam Torn meniscus Knee pain, left Osteoarthritis of knee Hypertension Migraine headaches Hypothyroidism GERD Hiatal hernia Procedure History Procedure Procedure Date Comments Knee Colonoscopy 06/25/2021 - Pathology showed polyps were comprised of nerve tissue that is considered benign. Does not increase of risk cancer. Repeat in 10 years. - COLO to cecum, 2 mm sigmoid polyp CF, 4 mm rectal polyp CF, redundant colon, left colon diverticulosis Laboratory findings data interpretation 12/27/2020 - Mg 1.9 nl Esophagogastroduodenoscopy 11/22/2020 - one area of intestinal metaplasia of stomach no Baretts identified. egd repeat in 3 years. follow up scheduled. - EGD irregular Z line bx, antral erythema. gastric mapping biopsies done. Esophagogastroduodenoscopy 08/24/2019 - 1 cm HH - EGD anrral eythema bx, gastric polyps fundus bx, GE ring bx, mid esoph nl bx Allergies and Sensitivities: NKA Social history: Patient states that she drinks approximately 1 alcoholic beverage per week. She denies tobacco or illicit drug use. Family history: Cancer Current Home Meds: (Last Updated 05/12 10:58) cholecalciferol (Vitamin D3 5000 intl units (125 mcg) oral tablet) cyanocobalamin (Vitamin B12 1000 mcg oral tablet) 1,000 mcg PO Daily diazePAM (diazePAM 2 mg oral tablet) TAKE ONE TABLET BY MOUTH TWICE DAILY NEEDED FOR dizziness OR vertigo docusate (Colace) 100 mg PO bid ferrous sulfate (ferrous sulfate 325 mg (65 mg elemental iron) oral tablet) 1 tab PO Daily four times per week. hydroCHLOROthiazide-triamterene (hydroCHLOROthiazide-triamterene 25 mg-37.5 mg o ral capsule) TAKE ONE CAPSULE BY MOUTH EVERY DAY ibuprofen (ibuprofen 600 mg oral tablet) 600 mg PO qid PRN: as needed for pain levothyroxine (Levothroid 100 mcg (0.1 mg) oral tablet) 1 tab PO Daily 112 mcg lisinopril (lisinopril 2.5 mg oral tablet) TAKE ONE TABLET BY MOUTH EVERY DAY omeprazole (omeprazole 40 mg oral delayed release capsule) TAKE ONE CAPSULE BY MOUTH EVERY DAY pravastatin (pravastatin 20 mg oral tablet) TAKE ONE TABLET BY MOUTH AT BEDTIME four TIMES A WEEK unknown medication (Fiber con) 1 tab po daily Allergies Allergy/AdvReac Type Severity Reaction Status Date / Time No Known Drug Allergies Allergy Verified 06/09/22 10:41 Home Medications Medication Instructions Recorded Confirmed Type ferrous sulfate 325 mg (65 mg 325 mg PO UD 03/28/19 06/09/22 History iron) tablet cholecalciferol (vitamin D3) 125 5,000 unit PO QAM 06/26/19 06/09/22 History mcg (5,000 unit) tablet (Vitamin D3) diazepam 2 mg tablet (Valium) 2 mg PO BID PRN dizziness or 08/20/20 06/09/22 Rx vertigo #10 tabs ondansetron 4 mg disintegrating 4 mg PO Q8H PRN nausea and 11/12/20 06/09/22 Rx tablet vomiting #30 tabs docusate sodium 100 mg capsule 100 mg PO BID #60 caps 04/22/21 06/09/22 Rx (Colace) oxycodone 5 mg tablet 5 mg PO Q6H PRN pain #14 tabs 04/22/21 06/09/22 Rx calcium polycarbophil 625 mg 625 mg PO QAM 06/10/21 06/09/22 History tablet (FiberCon) naratriptan 2.5 mg tablet (Amerge) 2.5 mg PO UD PRN migraines 11/28/21 06/09/22 History mecobalamin (vitamin B12) 1,000 1,000 mcg PO UD 12/12/21 06/09/22 History mcg chewable tablet (B12 Active) clobetasol 0.05 % topical cream See Rx Instructions .Route 02/25/22 06/09/22 Rx .COMPLEX #60 grams prochlorperazine maleate 10 mg 10 mg PO Q8H PRN nausea and 03/13/22 06/09/22 Rx tablet (Compazine) vomiting #20 tabs lorazepam 0.5 mg tablet 0.5 mg PO HS PRN Anxiety #30 tabs 05/13/22 06/09/22 Rx azelastine 137 mcg (0.1 %) nasal 2 spray intranasal QAM PRN 06/09/22 06/09/22 History spray aerosol Congestion fluocinolone acetonide oil 0.01 % 3 drp otic (ear) QAM PRN ear 06/09/22 06/09/22 History ear drops itching fluticasone propionate 50 2 spray intranasal BID PRN 06/09/22 06/09/22 History mcg/actuation nasal Congestion spray,suspension (Flonase Allergy Relief) ibuprofen 600 mg tablet 600 mg PO Q8H PRN Pain 06/09/22 06/09/22 History levothyroxine 112 mcg tablet 112 mcg PO QAM 06/09/22 06/09/22 History lisinopril 2.5 mg tablet 2.5 mg PO QAM 06/09/22 06/09/22 History omeprazole 40 mg capsule,delayed 40 mg PO QAM 06/09/22 06/09/22 History release pravastatin 20 mg tablet 20 mg PO UD 06/09/22 06/09/22 History triamterene 37.5 1 cap PO UD 06/09/22 06/09/22 History mg-hydrochlorothiazide 25 mg capsule Past Med/Surg History Medical History Anemia stable-on iron pills Diverticulitis GERD (gastroesophageal reflux disease) controlled, stable per pt History of COVID-19 03/06/22, home test, not hosp; dizziness, nausea, cough, headache>resolved. History of vertigo no recent problems Hyperlipidemia Hypertension controlled, stable per pt Hypothyroidism Nausea after anesthesia "happened once" Otalgia, left ear "under control with medication" Vestibular migraine meds prn; "very rare now" Surgical History History of esophagogastroduodenoscopy (EGD) History of excision of lesion throat Hx of arthroscopy of left knee x2 Hx of colonoscopy with polypectomy Family History Mother Rheumatoid arthritis Hypertension Stroke Cancer Father Hypertension Stroke Cancer FH: deafness or hearing loss Family/Other Stroke Other Family history of blood clots Denies family history of Colon cancer Ovarian cancer Prostate cancer Myocardial infarction Breast cancer Social History Smoking Status: Never smoker Second Hand Exposure: Yes (mother in law lived w/ pt, she was a smoker); Hx Alcohol Use: Yes Alcohol type: beer and wine Hx Substance Use: No Preferred Language: Bulgarian Communication Ability: Effective Visual Impairment: No Limitations Hearing Ability: Normal Fish House Worker Required: No Beliefs That Will Affect Care: None marital status: Current Living Situation: Spouse Current Living Situation Comment: 2 story home, 3 steps to enter, 1 st floor bath current occupational status: employed Feels Safe at Home: Yes Childhood Exposure to Second-Hand Smoke: No Dental Care, Regularly: Yes Physical Activity Frequency: 1-2 Times per Week Seatbelt Use: always Sunscreen Use: Yes Assistive Devices: Glasses Review of Systems All systems reviewed & are unremarkable except as noted in Subjective Physical Exam Physical Exam: Physical Exam: (relevant to the procedure, including heart and lung evaluation) General: Alert and oriented x3 appropriately and hygiene Eyes: Pupils are equal reactive to light with accommodation. Extraocular lids are intact Throat: Deferred due to COVID-19 precautions Cardiac: Regular rate and rhythm with no murmurs or gallops appreciated Lungs: Clear to auscultation throughout with no wheezing, rales or rhonchi Abdomen: Mildly obese, nondistended, nontender with NABS Extremities: Right hip; passive flexion is limited to 90 degrees, internal rotation to 0 degrees and external rotation to 20 degrees with referred pain into the groin area. Stinchfield test positive. Logroll test negative. Straight leg raise test negative. Patient is neurovascular intact in the right lower extremity. Neuro: Cranial nerves II through XII are intact no motor or sensory deficit Skin: Normal appearance no open skin areas or discharge Results & Data ([facility]) Diagnostic Findings Studies (relevant to the procedure): MRI study done on May 06, 2022, is reviewed. This shows severe osteoarthritis in the right hip with chondral thinning and bone marrow edema noted within the right femoral head. She does have mild arthritic findings on the left side as well.
[~2022-07-02 06:35] MED LIST changes: +ACETAMINOPHEN 500 MG TAB PO SCH; -CLBCRM30 EXT; -CLC150 PO; +CeleBREX 200 MG CAP PO SCH; +FAMOTIDINE 20 MG TAB PO SCH; -LEVO112T4 PO; +LR 500ML BOLUS, THEN 15ML/HR IV SCH; +LR 60ML/HR IV SCH; -NORT10CA4 PO; -OMEP40CA41 PO; -PRVC/20 PO; +ROPIVACAINE 0.5% HCL/PF 150 MG, BUPIVACAINE 0.75% MPF 20 ML, EPINEPHrine 0.15 MG, Ketor... INFIL SCH; +Scopolamine 1 MG TDSY TD SCH; +TRANEXAMIC ACID 1,000 MG **IV Intra-op IV SCH; +TRANEXAMIC ACID 1,000 MG **IV Pre-op IV SCH; -TRIA37.5 PO; +ceFAZolin 2000MG 2,000 MG/15 ML SYR IV SCH; +dexAMETHasone 4 MG TAB PO SCH; +traMADol HCL 50 MG TABLET PO SCH
[2022-07-02] MEDS ORDERED: BUPIVACAINE 0.5 % 5 MG/1 ML PF 10ML VIAL ONE (06:38)
[2022-07-02] MEDS ORDERED: ONDANSETRON INJ 2 MG/ML 2 ML VIAL ONE (07:49)
[2022-07-02] MEDS ORDERED: fentaNYL citrate 100 MCG/2 ML VIAL ONE (07:49)
[2022-07-02] MEDS ORDERED: MIDAZOLAM HCL 1 MG/ML 2ML VIAL ONE (07:49)
--- NOTE | 2022-07-02 08:29 | History & Physical Bridge Note ---
Date of Service July 02, 2022 History & Physical Bridge Note I have examined the patient, reviewed the History & Physical and in the interval since the performance of the History & Physical I have noted the following changes of clinical significance: no changes noted
[2022-07-02] MEDS ORDERED: ORTHO JOINT ANESTHETIC ONE (08:35)
[2022-07-02] MEDS ORDERED: PROPOFOL IV EMULSION 10 MG/ML 20 ML VIAL IV ONE (08:40)
[2022-07-02] MEDS ORDERED: ePHEDrine sulfate 50 MG/ML AMP IV PRN (08:45)
[2022-07-02] MEDS ORDERED: ATROPINE SULFATE 0.1 MG/ML 10ML SYR IV PRN (08:45)
[2022-07-02] MEDS ORDERED: HYDROmorphone INJ 2 MG/ML SYR/VIAL IV PRN (08:45)
[2022-07-02] MEDS ORDERED: DEXAMETHASONE SOD INJ 4 MG/ML VIAL ONE (09:19)
--- NOTE | 2022-07-02 10:33 | Operative Report ---
Post Operative Report Pre & Post Diagnosis Operation Date: 07/02/22 09:10 Pre-Op Diagnosis: Right Hip Osteoarthritis Post-Op Diagnosis: Right Hip Osteoarthritis I identified the patient and participated in the time-out.: Yes Procedure Operation Date: 07/02/22 09:10 Actual Procedures p Right Total Hip Arthroplasty, Uncemented(Right) - Yaron Geller MD Surgeon Yaron Geller MD Data Communications Technician SHANON Singh PA-C. No resident or fellow was available to assist. Estimated Blood Loss 100 Findings Consistent with Post-Op Diagnosis Fluids 1100 cc Specimens Right femoral head Anesthesia Type Spinal MAC Complications none Disposition Disposition: Recovery Room Indications 66-year-old female, right hip osteoarthritis refractory to conservative management, x-rays demonstrate [id number] disease. I had a long discussion with her about the risks and benefits of surgery, alternatives, and expected outcomes. After reviewing all these she elected to proceed with surgery. All questions were answered. Informed consent was signed. Description of Procedure Patient was identified in the preoperative holding area and the surgical site, right hip, was marked. A spinal anesthetic was placed, then the patient was brought back to the main operating room, placed in the operating table and moved into the lateral decubitus position. Axillary roll was placed. All bony prominences were padded. Perioperative antibiotics and tranexamic acid 1 gram IV were administered. Operative extremity was prepped and draped in the normal sterile fashion. Prior to incision a multidisciplinary timeout was called. All in the room were in agreement. We began by making an incision for a posterior approach to the hip. We dissected down through subcutaneous tissues to the level of the fascia. The fascia was incised in line with the incision. Charnley bow was placed. The trochanteric bursa was excised. The piriformis and short external rotators were dissected off the posterior aspect of the hip. A box cut was made in the capsule. The femoral head was dislocated. The femoral neck cut was made at our preoperative template. The acetabulum was then exposed. The labrum was sharply excised. Contents of the cotyloid fossa were removed with electrocautery. We then began reaming at a size 8 mm less than our preoperative template. We reamed up by 1 [address] the way up to a size 52 mm cup. This gave us good bleeding cancellus bone circumferentially. The acetabulum was then irrigated out and dried. The real Noel Gription cup was then impacted down into position with 45 degrees of lateral opening and 25 degrees of anteversion. A single cancellous bone screw was placed up into the ilium. Excellent fixation was obtained. A trial liner for a 32 mm femoral head was then placed. Next we turned our attention to the femur. The lateral neck was removed with a box osteotome. Intramedullary guide was used followed by the lateralizing reamer. We then reamed up to a size 4 Boundary stem. We then broached all the way up to a size 3. We began trialing with a standard offset neck and a +5 head. Hip was reduced. Leg length check showed her operative leg to be a couple millimeters shorter than the other side. Therefore I upsized her to a +9 head. Now the leg lengths were symmetric. The hip was stable in extension and external rotation, and stable in the sleeper position. At 90 degrees of hip flexion the hip could be internally rotated 65 degrees before levering out of the cup. I was very happy with the stability exam. Therefore the hip was dislocated and the femoral trial was removed. The acetabulum was re-exposed, and the trial liner was removed. An Altrx polyethylene liner for a 32 mm femo ral head was then impacted into the shell. The locking mechanism was checked to ensure that it had engaged which it had. The femur was re-exposed. The femoral canal was irrigated and dried. The real size 3 standard offset Boundary femoral stem was opened up. This was impacted down into position. It sat at the same level as the femoral trial. Therefore the 32 mm ceramic femoral head with a +9 mm offset was opened up and gently impacted down onto the trunnion. The hip was atraumatically reduced. Another 1 gram of IV tranexamic acid was started prior to closure. The wound was irrigated out with sterile Betadine solution. The periarticular injection cocktail was then placed. The short external rotators, piriformis, and posterior capsule were repaired through drill holes in the greater trochanter using #2 Vicryl. The fascia was run with a looped #1 PDS. The subcutaneous layer was closed with #1 PDS. The dermal layer was closed with 2-0 Vicryl. Zip line was used for the skin followed by a Silverlon dressing. A compressive dressing was then placed. The patient was then rolled supine. Leg lengths were rechecked and were symmetric. An abduction pillow was placed. Sedation was lifted and the patient was transferred to recovery room in stable condition. Summary of implants: Depuy Noel Gription Acetabular Shell Sector Cup, 52 mm outer diameter Noel Cancellous bone screw, 6.5 x 35 mm Noel Altrx Polyethylene Acetabular Liner, Neutral, with a 32 mm inner diameter DePuy Boundary Femoral stem with Porocoat, 12/14 taper, size 3 standard offset 32 mm ceramic femoral head with +9 offset Postoperative course: Patient will be admitted to the hospital from the recovery room. Patient will be weightbearing as tolerated with posterior hip precautions. Aspirin for DVT prophylaxis I attest to the content of the Intraoperative Record and any orders documented therein. Any exceptions are noted below.
[2022-07-02] MEDS ORDERED: METOCLOPRAMIDE HCL INJ 5 MG/ML 2 ML VIAL IV PRN (10:35)
[2022-07-02] MEDS ORDERED: NALOXONE HCL 0.4 MG/1 ML VIAL/CARP IV PRN (10:35)
[2022-07-02] MEDS ORDERED: bisacodyL 10 MG SUPP PR PRN (10:35)
[2022-07-02] MEDS ORDERED: ALUMINUM/MAGNESIUM SUSP 30 ML UDC PO PRN (10:35)
[2022-07-02] MEDS ORDERED: diphenhydrAMINE 50 MG/ML VIAL IV PRN (10:35)
[2022-07-02] MEDS ORDERED: ONDANSETRON INJ 2 MG/ML 2 ML VIAL IV PRN (10:35)
[2022-07-02] MEDS ORDERED: MAGNESIUM HYDROXIDE SUSP 30 ML UDC PO PRN (10:35)
--- NOTE | 2022-07-02 10:35 | Operative Report ---
Post Operative Report Pre & Post Diagnosis Operation Date: 07/02/22 09:10 Pre-Op Diagnosis: Right Hip Osteoarthritis Post-Op Diagnosis: Right Hip Osteoarthritis I identified the patient and participated in the time-out.: Yes Procedure Operation Date: 07/02/22 09:10 Actual Procedures p Right Total Hip Arthroplasty, Uncemented(Right) - Yaron Geller MD Surgeon Yaron Geller MD Operating Room Technologist SHANON Singh PA-C. No resident or fellow was available to assist. Estimated Blood Loss 100 Findings Consistent with Post-Op Diagnosis Specimens femoral head Description of Procedure I was present during the entire case assisting with positioning, prepping, draping, wound retraction, wound closure, dressing and abduction pillow placement. No fellow present. Please see Dr. Geller procedure note for specifics of the case. I attest to the content of the Intraoperative Record and any orders documented therein. Any exceptions are noted below.
[2022-07-02] MEDS ORDERED: diazePAM 2 MG TABLET PO PRN (10:38)
[2022-07-02] MEDS ORDERED: NARATRIPTAN 2.5 MG PO PRN (10:38)
[2022-07-02] MEDS ORDERED: LORazepam 0.5 MG TAB PO PRN (10:38)
[2022-07-02] MEDS ORDERED: AZELASTINE HCL 0.1% NASAL 200 SPRAYS/27,400 MCG BTL NAE PRN (10:38)
[2022-07-02] MEDS ORDERED: PROCHLORPERAZINE MALEATE 10 MG TAB PO PRN (10:38)
[2022-07-02] MEDS ORDERED: FLUTICASONE PROPIONATE NA SPR 16 GM BTL NAE PRN (10:38)
[2022-07-02] MEDS ORDERED: TRIAMTERENE/HCTZ 37.5/25MG CAP PO SCH (10:45)
[2022-07-02] MEDS: fentaNYL citrate 100 MCG/2 ML VIAL IV PRN ×4 (10:48→11:03)
--- NOTE | 2022-07-02 11:04 | XRay Report ---
XR pelvis 1-2V routine CLINICAL HISTORY: In PACU - Post Surgical TECHNIQUE: A single frontal view of the pelvis was obtained. Comparison: Comparison is made to pelvis radiograph 06/16/2022 FINDINGS: Patient is status post total hip arthroplasty with expected postsurgical changes including soft tissu e swelling, and subcutaneous emphysema. No periarticular lucency or hardware fracture is seen. IMPRESSION: Expected postoperative appearance status post placement of total hip arthroplasty. ACT 112: Negative or not required by law. Electronically signed by: Oskar Ortiz M.D. 07/02/2022 11:02 AM
--- NOTE | 2022-07-02 12:06 | Anesthesiology Progress Note ---
Date of Service July 02, 2022 Anesthesia Post Procedure Vital Signs Vital Signs: Temp Pulse Resp BP Pulse Ox O2 Del Method O2 Flow Rate 07/02/22 11:28 36.4 C L 57 L 16 122/73 98 Nasal Cannula 2 07/02/22 11:10 36.5 C 52 L 16 109/71 98 Nasal Cannula 2 07/02/22 11:00 52 L 16 99/72 L 98 Nasal Cannula 2 07/02/22 10:50 60 18 122/62 98 Oxymask 5 07/02/22 10:40 50 L 18 104/64 98 Oxymask 5 07/02/22 10:33 36.4 C L 62 18 118/66 95 Oxymask 5 07/02/22 07:38 36.7 C 51 L 20 137/73 94 Room Air Pain Intensity Right Hip: Pain Intensity: 7 Transfer of Care Handoff Completed per policy Notes Mental Status: alert / awake / arousable and participated in evaluation Patient Amnestic to Procedure: Yes Nausea / Vomiting: adequately controlled Pain: adequately controlled Airway Patency, RR, SpO2: stable & adequate BP & HR: stable & adequate Hydration State: stable & adequate Neuraxial Anesthesia: was administered and sensory block is resolving Anesthetic Complications: no major complications apparent and Pt Satisfied with anesthetic care
[2022-07-02] MEDS ORDERED: PRAVASTATIN SOD 20 MG TAB PO SCH (12:15)
[2022-07-02] MEDS: KETOROLAC TROMETHAMINE 15 MG/ML VIAL IV SCH ×3 (12:37→23:55)
[2022-07-02] MEDS: SODIUM CHLORIDE 0.9% 1000ML 1,000 ML IV SCH ×2 (12:45→22:25)
[2022-07-02] MEDS: ACETAMINOPHEN 500 MG TAB PO SCH ×2 (14:10→20:12)
[2022-07-02] MEDS: oxyCODONE HCL IR 5 MG TAB (IMMEDIATE RELEASE) PO PRN ×2 (14:10→22:03)
[2022-07-02] MEDS ORDERED: TRANEXAMIC ACID / 0.7% NACL 1,000 MG/100 ML BAG IV SCH (16:45)
[2022-07-02] MEDS ORDERED: HYDROmorphone INJ 0.5 MG/0.5 ML SYR IV PRN (17:22)
[2022-07-02] MEDS: Scopolamine CHECK PATCH PLACEMENT SCH ×2 (17:40→23:55)
[2022-07-02] MEDS: ceFAZolin 2000MG 2,000 MG/15 ML SYR IV SCH ×2 (17:54→23:55)
[2022-07-02] MEDS: DOCUSATE SODIUM 100 MG CAP PO SCH (20:12)
[2022-07-02] MEDS ORDERED: CeleBREX 200 MG CAP PO SCH (21:00)
[2022-07-02] MEDS ORDERED: SENNA 8.6 MG TAB PO SCH (21:00)
[2022-07-02] MEDS ORDERED: DOCUSATE SODIUM 100 MG CAP PO SCH (21:00)
[2022-07-03] MEDS: oxyCODONE HCL IR 5 MG TAB (IMMEDIATE RELEASE) PO PRN (04:08)
[2022-07-03] MEDS: KETOROLAC TROMETHAMINE 15 MG/ML VIAL IV SCH (05:43)
[2022-07-03] MEDS: ACETAMINOPHEN 500 MG TAB PO SCH (05:43)
[2022-07-03] MEDS ORDERED: LEVOTHYROXINE SODIUM 112 MCG TABLET PO SCH (06:30)
[2022-07-03] MEDS: DOCUSATE SODIUM 100 MG CAP PO SCH (07:28)
[2022-07-03] MEDS: Scopolamine CHECK PATCH PLACEMENT SCH (07:30)
[2022-07-03] MEDS ORDERED: dexAMETHasone 4 MG TAB PO SCH (08:00)
[2022-07-03 08:42] LABS: Basophils # (auto) 0.02 K/uL (0-0.2); Basophils % (auto) 0.1 %; Eosinophils # (auto) 0.01 K/uL (0-0.50); Eosinophils % (auto) 0.1 %; Hematocrit (blood only) 32.9 % (34.1-44.9); Hemoglobin 11.3 g/dl (12.0-16.0); Immature Granulocytes # (auto) 0.08 K/uL (0.00-0.02); Immature Granulocytes % (auto) 0.6 %; Lymphocytes # (auto) 1.57 K/uL (1.2-3.4); Lymphocytes % (auto) 11.3 %; Mean Corpuscular Hemoglobin 31.9 pg (25.0-34.0); Mean Corpuscular Hgb Conc 34.3 g/dL (32.0-36.0); Mean Corpuscular Volume 92.9 fL (80.0-100.0); Monocytes % (auto) 7.2 %; Neutrophils % (auto) 80.7 %; Platelet Count 246 K/uL (130-400); RDW Coefficient of Variation 12.7 % (11.5-14.5); RDW Standard Deviation 43.7 fL (36.4-46.3); Red Blood Count 3.54 M/uL (3.93-5.22); White Blood Count 13.88 K/ul (4.8-10.8)
[2022-07-03] MEDS ORDERED: ASPIRIN 81 MG ECTAB PO SCH (09:00)
[2022-07-03] MEDS ORDERED: CYANOCOBALAMIN (B-12) 500 MCG TABLET PO SCH (09:00)
[2022-07-03] MEDS ORDERED: FERROUS SULFATE 325 MG TAB PO SCH (09:00)
[2022-07-03] MEDS ORDERED: lisinopril 2.5 MG TAB PO SCH (09:00)
[2022-07-03] MEDS ORDERED: PANTOprazole 40 MG TAB PO SCH (09:00)
[2022-07-03] MEDS ORDERED: MULTIVITAMIN TAB PO SCH (09:00)
[2022-07-03] MEDS ORDERED: CALCIUM POLYCARBOPHIL 625MG TAB PO SCH (09:00)
[2022-07-03] MEDS ORDERED: CHOLECALCIFEROL 5,000 UNITS 125 MCG TAB PO SCH (09:00)
[2022-07-03 09:10] LABS: Calcium 8.6 mg/dl (8.5-10.1); Creatinine Clr Calc Pharmacy 62.9 ml/min; Est GFR (African American) 76.2 ml/min; Est GFR (Non-African American) 65.7 ml/min; Potassium 4.2 mmol/L (3.5-5.1)
--- NOTE | 2022-07-03 10:05 | Orthopedic Progress Note ---
Date of Service July 03, 2022 Assessment & Plan (1) S/P total hip arthroplasty: Plan: Total hip precautions reviewed Weightbearing as tolerated with walker assistance PT/OT Keep Silverlon dressing in place Ice with easy wrap Pain controlled p.o. medications DVT prophylaxis with aspirin and LOYD stockings Abduction pillow use x6 weeks postoperatively Plan is discharge home later today with in-home physical therapy starting Wednesday. Follow-up with [facility] orthopedics as previously scheduled. With questions contact her clinic at [phone] Admission and Anticipated Discharge Date Admission Date: July 02, 2022 Subjective This 66-year-old female is day 1 status post right total hip arthroplasty. She states that last evening she had some issues with pain control and needed some IV pain medicine. States she is much better today. She states that she does have a slight ache in her right hip but has been able to transition from a seated to a standing position and ambulate with the aid of her walker to the bathroom several times. Currently she denies chest pain, shortness of breath, fever, chills, sweats, lethargy or numbness or tingling in her right lower extremity. Review of Systems Review of Systems: All systems reviewed & are unremarkable except as noted in Subjective Physical Exam Physical Exam: Right hip: Silverlon dressing is clean dry and intact. Quad strength is 4 out of 5. Patient is able to easily perform a straight leg raise test. She is able to easily dorsi and plantarflex her foot without issue. Passive hip flexion to 90 degrees causes no pain. Patient does feel a slight headache with light passive internal and external hip rotation. Logroll test negative. She is neurovascularly intact in the right lower extremity. Results & Data ([facility]) Vital Signs (Past 12 Hours) Vital Signs Temp Pulse Pulse Resp BP Pulse Ox O2 Del Method 07/03/22 07:26 36.7 C 53 L 16 127/79 96 Room Air 07/03/22 03:34 36.5 C 57 L 16 116/72 96 Room Air 07/03/22 00:00 36.4 C L 55 L 18 116/67 96 Diagnostic Findings Laboratory Results WBC 13.88 K/ul (4.8-10.8) H 07/03/22 08:14 RBC 3.54 M/uL (3.93-5.22) L 07/03/22 08:14 Hgb 11.3 g/dl (12.0-16.0) L 07/03/22 08:14 Hct 32.9 % (34.1-44.9) L 07/03/22 08:14 MCV 92.9 fL (80.0-100.0) 07/03/22 08:14 MCH 31.9 pg (25.0-34.0) 07/03/22 08:14 MCHC 34.3 g/dL (32.0-36.0) 07/03/22 08:14 RDW Std Deviation 43.7 fL (36.4-46.3) 07/03/22 08:14 RDW Coeff of Juan 12.7 % (11.5-14.5) 07/03/22 08:14 Plt Count 246 K/uL (130-400) 07/03/22 08:14 MPV 10.0 fL (9.4-12.3) 07/03/22 08:14 Immature Gran % (Auto) 0.6 % 07/03/22 08:14 Neut % (Auto) 80.7 % 07/03/22 08:14 Lymph % (Auto) 11.3 % 07/03/22 08:14 Roberts % (Auto) 7.2 % 07/03/22 08:14 Eos % (Auto) 0.1 % 07/03/22 08:14 Baso % (Auto) 0.1 % 07/03/22 08:14 Neut # (Auto) 11.20 K/uL (1.4-6.5) H 07/03/22 08:14 Lymph # (Auto) 1.57 K/uL (1.2-3.4) 07/03/22 08:14 Roberts # (Auto) 1.00 K/uL (0.24-0.82) H 07/03/22 08:14 Eos # (Auto) 0.01 K/uL (0-0.50) 07/03/22 08:14 Baso # (Auto) 0.02 K/uL (0-0.2) 07/03/22 08:14 Immature Gran # (Auto) 0.08 K/uL (0.00-0.02) H 07/03/22 08:14 Sodium 132 mmol/L (136-145) L 07/03/22 08:14 Potassium 4.2 mmol/L (3.5-5.1) 07/03/22 08:14 Chloride 101 mmol/L (98-107) 07/03/22 08:14 Carbon Dioxide 26 mmol/L (21-32) 07/03/22 08:14 Anion Gap 5 (3-11) 07/03/22 08:14 BUN 20 mg/dl (6-23) 07/03/22 08:14 Creatinine 0.91 mg/dl (0.6-1.2) 07/03/22 08:14 Est Cr Clr Drug Dosing 62.9 ml/min 07/03/22 08:14 Est GFR ( Amer) 76.2 ml/min 07/03/22 08:14 Est GFR (Non-Af Amer) 65.7 ml/min 07/03/22 08:14 BUN/Creatinine Ratio 22.0 (10-20) H 07/03/22 08:14 Glucose 119 mg/dl (70-99(Fasting)) H 07/03/22 08:14 Calcium 8.6 mg/dl (8.5-10.1) 07/03/22 08:14 SARS-CoV-2, RNA, NAAT NEGATIVE (NEGATIVE) 07/02/22 Unknown Impressions Pelvis X-Ray 07/02/22 10:35 XR pelvis 1-2V routine CLINICAL HISTORY: In PACU - Post Surgical TECHNIQUE: A single frontal view of the pelvis was obtained. Comparison: Comparison is made to pelvis radiograph 06/16/2022 FINDINGS: Patient is status post total hip arthroplasty with expected postsurgical changes including soft tissue swelling, and subcutaneous emphysema. No periarticular lucency or hardware fracture is seen. IMPRESSION: Expected postoperative appearance status post placement of total hip arthroplasty. ACT 112: Negative or not required by law. Electronically signed by: Oskar Ortiz M.D. 07/02/2022 11:02 AM
--- NOTE | 2022-07-03 10:15 | Discharge Summary ---
Date of Service July 03, 2022 Admission HPI Per Admitting Provider History of Present Illness (including history relevant to procedure): This 66-year-old female presents the clinic today for preoperative history and physical. Patient has a 1 year history of significant right-sided hip pain that is caused her to begin walking with an antalgic gait. She feels a burning sensation in the lateral hip with intermittent radiation into her groin. Pain is exacerbated when she transitions from a seated to a standing position and with any type of activity. She has tried a corticosteroid injection without relief. She has also tried various [id number] nonsteroidal agents that w ere ineffective. Currently she is using 600 mg of ibuprofen 3-4 times daily. Review Of Systems: A 12 point review of systems is performed and is unremarkable except for those things stated in the HPI and past medical history. Past Medical History: Problems: Osteoarthritis of right hip Plantar fasciitis Left knee pain Intestinal metaplasia of gastric mucosa Lizarraga esophagus S/P left knee arthroscopy Pre-op exam Torn meniscus Knee pain, left Osteoarthritis of knee Hypertension Migraine headaches Hypothyroidism GERD Hiatal hernia Procedure History Procedure Procedure Date Comments Knee Colonoscopy 06/25/2021 - Pathology showed polyps were comprised of nerve tissue that is considered benign. Does not increase of risk cancer. Repeat in 10 years. - COLO to cecum, 2 mm sigmoid polyp CF, 4 mm rectal polyp CF, redundant colon, left colon diverticulosis Laboratory findings data interpretation 12/27/2020 - Mg 1.9 nl Esophagogastroduodenoscopy 11/22/2020 - one area of intestinal metaplasia of stomach no Baretts identified. egd repeat in 3 years. follow up scheduled. - EGD irregular Z line bx, antral erythema. gastric mapping biopsies done. Esophagogastroduodenoscopy 08/24/2019 - 1 cm HH - EGD anrral eythema bx, gastric polyps fundus bx, GE ring bx, mid esoph nl bx Allergies and Sensitivities: NKA Social history: Patient states that she drinks approximately 1 alcoholic beverage per week. She denies tobacco or illicit drug use. Family history: Cancer Current Home Meds: (Last Updated 05/12 10:58) cholecalciferol (Vitamin D3 5000 intl units (125 mcg) oral tablet) cyanocobalamin (Vitamin B12 1000 mcg oral tablet) 1,000 mcg PO Daily diazePAM (diazePAM 2 mg oral tablet) TAKE ONE TABLET BY MOUTH TWICE DAILY NEEDED FOR dizziness OR vertigo docusate (Colace) 100 mg PO bid ferrous sulfate (ferrous sulfate 325 mg (65 mg elemental iron) oral tablet) 1 tab PO Daily four times per week. hydroCHLOROthiazide-triamterene (hydroCHLOROthiazide-triamterene 25 mg-37.5 mg oral capsule) TAKE ONE CAPSULE BY MOUTH EVERY DAY ibuprofen (ibuprofen 600 mg oral tablet) 600 mg PO qid PRN: as needed for pain levothyroxine (Levothroid 100 mcg (0.1 mg) oral tablet) 1 tab PO Daily 112 mcg lisinopril (lisinopril 2.5 mg oral tablet) TAKE ONE TABLET BY MOUTH EVERY DAY omeprazole (omeprazole 40 mg oral delayed release capsule) TAKE ONE CAPSULE BY MOUTH EVERY DAY pravastatin (pravastatin 20 mg oral tablet) TAKE ONE TABLET BY MOUTH AT BEDTIME four TIMES A WEEK unknown medication (Fiber con) 1 tab po daily Admission Exam Per Admitting Provider Physical Exam: (relevant to the procedure, including heart and lung evaluation) General: Alert and oriented x3 appropriately and hygiene Eyes: Pupils are equal reactive to light with accommodation. Extraocular lids are intact Throat: Deferred due to COVID-19 precautions Cardiac: Regular rate and rhythm with no murmurs or gallops appreciated Lungs: Clear to auscultation throughout with no wheezing, rales or rhonchi Abdomen: Mildly obese, nondistended, nontender with NABS Extremities: Right hip; passive flexion is limited to 90 degrees, internal rotation to 0 degrees and external rotation to 20 degrees with referred pain into the groin area. Stinchfield test positive. Logroll test negative. Straight leg raise test negative. Patient is neurovascular intact in the right lower extremity. Neuro: Cranial nerves II through XII are intact no motor or sensory deficit Skin: Normal appearance no open skin areas or discharge Principal Diagnosis Right hip osteoarthritis Discharge Exam Right hip: Silverlon dressing is clean dry and intact. Quad strength is 4 out of 5. Patient is able to easily perform a straight leg raise test. She is able to easily dorsi and plantarflex her foot without issue. Passive hip flexion to 90 degrees causes no pain. Patient does feel a slight headache with light passive internal and external hip rotation. Logroll test negative. She is neurovascularly intact in the right lower extremity. Discharge Data Allergies Allergy/AdvReac Type Severity Reaction Status Date / Time No Known Drug Allergies Allergy Verified 07/02/22 07:34 Procedures Performed Operation Date: 07/02/22 09:10 Actual Procedures p Right Total Hip Arthroplasty, Uncemented(Right) - Yaron Geller MD Hospital Course (1) S/P total hip arthroplasty: Patient had essentially an unremarkable overnight stay. She did need some IV pain medication due to pain she experienced last evening, however it is under control with p.o. medication this morning. Patient's plan is to be discharged home today with in-home physical therapy starting Wednesday. Total hip precautions reviewed Weightbearing as tolerated with walker assistance PT/OT Keep Silverlon dressing in place Ice with easy wrap Pain controlled p.o. medications DVT prophylaxis with aspirin and LOYD stockings Abduction pillow use x6 weeks postoperatively Plan is discharge home later today with in-home physical therapy starting Wednesday. Follow-up with [facility] orthopedics as previously scheduled. With questions contact her clinic at [phone] Total Time Total Time Spent Total Time Spent (In Minutes): 20 minutes Discharge Plan Discharge Items Patient Disposition: Home - Home Health Services Reason For Visit: Right Hip Osteoarthritis Discharge Diagnosis: Right Hip Osteoarthritis Activity: As commented below Lifting: None Bathing: Keep incision dry Bathing Comment: May shower tomorrow Sexual Activity: Wait until after follow-up appointment Exercise/Sports: Wait until after follow-up appointment Driving/Machine Use: No driving until cleared by drilling fluids specialist Weightbearing: Right weightbearing Weightbearing Comment: as tolerated w/ walker assistance Non-emergency contact: Surgeon Call non-emergency contact if: you have any medication questions, your pain is not controlled, your temperature is above 101.5, your wound has increased drainage and your wound pain has increased Follow-up/Referrals: Pro,Manas Fernandes MD [Primary Care Provider] - Diet: Regular Addtl Attending Provider Instructions: Post-operative Instructions Dear Patient and Family/Friends, Before you are discharged from the hospital, it is important to know what to expect when you get home after surgery. To that end, we have created this sheet of discharge instructions which covers many commonly asked questions. Make sure you go through this sheet in its entirety with your nurse before you are discharged. Please note that we will go over the specifics of your surgery and recovery when you return for your first post-operative visit. Sincerely, Dr. Geller Medications 1. Oxycodone 5 mg: take 1-2 tabs every 4-6 hours as needed for pain control. A prescription will be sent to your pharmacy for this medication. 2. Diclofenac Sodium 75 mg: take 1 tab twice daily for 30 days post operatively. This will also be sent to your pharmacy with 1 refill. 3. Aspirin 81 mg: take 1 tab twice daily for 30 days post operatively for blood clot prevention. Please purchase. 4. Extra Strength Tylenol 500 mg: take 2 tabs every 6-8 hours as needed for additional pain relief. Please purchase. Pain Expect to be in a fair amount of pain after surgery. Remember, our goal is not to eliminate your pain, but to make it tolerable. It is a good idea to stay ahead of your pain by taking the medications you were prescribed once you get home. Typically, the pain starts improving 3-7 days after surgery. You should start weaning off the narcotic pain medication (oxycodone, hydrocodone, hydrom orphone, morphine) as soon as your pain improves. Please call our office if your pain is not adequately controlled. Ice Ice your operative site at least 5 times a day for 15-30 minutes at a time. Make sure you have a thin cloth between the ice or cooling unit and your skin to prevent abarca bite. This is especially important if you received a nerve block. Continue icing your operative site for the first 5-7 days after surgery, then as needed. Diet/Nausea/Vomiting Start by drinking clear liquids and eating crackers. If you can tolerate this, then you may resume your normal diet. If you feel nauseated or vomit, take Zofran/ondansetron (if prescribed). Please call our office if you have intractable nausea or vomiting, or, if after hours, you may go to the Emergency Room for help. Constipation Constipation is a common side effect of narcotic pain medication. If you have not had a bowel movement within 2 days after surgery, we recommend purchasing an over the counter laxative such as Milk of Magnesia, Dulcolax, or Miralax from a local pharmacy, and taking it as instructed. Call our clinic if any questions. Slings and Braces If you were placed in a sling or brace, it must be worn at all times, including sleep. You may remove your sling or brace for physical therapy, home exercises, and showering. The length of time you will be in your brace and range of motion restrictions depends on what surgery you had; these details will be reviewed at your first post-operative appointment. Nerve block The anesthesia team sometimes places a nerve block to help with post-operative pain control. This results in significant numbness and inability to move the extremity. The nerve block usually wears off in 8-12 hours, but sometimes can last up to 24 hours. Please call our office if you are still unable to move your extremity after 24 hours, unless you received a pain pump to take home. Nerve blocks typically wear off quickly, so start taking pain medication as soon as you start feeling soreness near your surgical site. Weight bearing and Range of Motion. Do not bear any weight through your operative extremity immediately after surgery. If you had upper extremity surgery, do not lift anything with that arm. If you are in a knee brace, keep it locked in place until your follow-up. We will discuss your weight bearing, range of motion, and lifting restrictions in detail at your first post-operative appointment. Continuous Passive Motion (CPM) Machine If you were prescribed a CPM machine, it will start after your first post- operative appointment, at which time we will give you instructions on the range of motion settings and duration of treatment Physical therapy You will be given a prescription for physical therapy or occupational therapy at your first post-operative appointment. Typically, patients start therapy within 1 week of surgery Wound care and showering We will inspect your wound at your first post-operative visit, and may do a dressing change at that time. Most patients will be in a water-proof dressing that is removed 14 days after surgery. It is normal to see some dried blood on the dressing. Do not remove your dressing, paper strips or sutures yourself unless you are given permission. Showering is allowed the day after surgery. Do not scrub or remove any dressings. The wound should not be submerged underwater (i.e. in a bathtub or pool) until 4 weeks after surgery LOYD stockings If you were given white stockings, these are to be worn at all times except to shower (on both legs) for the first 2 weeks after surgery. Driving You may not drive while taking narcotic pain medication or while in a cast, splint, sling or brace. You, the patient, need to make the final determination about when you are safe to drive, however, the earliest you may consider driving after surgery is below: Hand/Wrist/Elbow Surgery: 3 days Shoulder Surgery: 2 weeks Hip,/Knee/Ankle Surgery: 4 weeks Fracture repair: 6 weeks Return to Work Your return to work depends on what surgery was done and what type of work you do. Please bring any paperwork your employer needs completed to your first post-operative visit. Also, bring a description of your job duties, as this helps us to understand what risks you may face at work. Travel Avoid long distance travel (greater than 1 hour) in airplanes and cars for the first 6 weeks after surgery. If you must travel, you need to have a Doppler ultrasound done before you travel to rule out a blood clot in your legs. Follow-up You should have a follow-up appointment already scheduled 1-2 days after surgery. If not, please contact our office to make this appointment before you leave the hospital. When to call the office It is normal to have swelling and bruising in the limb that was operated on. This will improve with time. It is also normal to have fevers for the first 2 days after surgery. Reasons you should call your doctor include: Uncontrolled pain; Nausea, vomiting, or constipation that does not improve with medication; Fevers over 101.5, chills, sweats; Drainage or bleeding from the wound; Foul odor; Spreading areas of redness; Any other concerns Pending Studies at Discharge: No Stand-Alone Forms: My [facility] Medications and DC Order Prescriptions: New aspirin 81 mg Tablet,Delayed Release (Dr/Ec) 81 mg PO BID 30 Days Qty: 60 0RF oxycodone 5 mg tablet 5 mg PO Q4H MDD Ongoing therapy Qty: 28 0RF diclofenac sodium 75 mg tablet,delayed release (DR/EC) 75 mg PO BID 30 Days Qty: 60 1RF Continued ondansetron 4 mg tablet,disintegrating 4 mg PO Q8H PRN (Reason: nausea and vomiting) Qty: 30 3RF B12 Active 1,000 mcg tablet,chewable 1,000 mcg PO UD Rx Instructions: three times weekly prochlorperazine maleate [Compazine] 10 mg tablet 10 mg PO Q8H PRN (Reason: nausea and vomiting) Qty: 20 0RF omeprazole 40 mg capsule,delayed release(DR/EC) 40 mg PO QAM Qty: 90 3RF clobetasol 0.05 % cream See Rx Instructions .ROUTE .COMPLEX Qty: 60 0RF Dose Instruction: APPLY TOPICALLY SPARINGLY TO AFFECTED AREA(S) twice WEEKLY Rx Instructions: APPLY TOPICALLY SPARINGLY TO AFFECTED AREA(S) twice WEEKLY calcium polycarbophil [FiberCon] 625 mg tablet 625 mg PO QAM diazepam [Valium] 2 mg tablet 2 mg PO BID PRN (Reason: dizziness or vertigo) Qty: 10 3RF ferrous sulfate 325 mg (65 mg iron) tablet 325 mg PO UD Rx Instructions: TAKES ON MON, WED, FRI & SAT. lorazepam 0.5 mg tablet 0.5 mg PO HS PRN (Reason: Anxiety) Qty: 30 0RF cholecalciferol (vitamin D3) [Vitamin D3] 5,000 unit Tablet 5,000 unit PO QAM naratriptan [Amerge] 2.5 mg tablet 2.5 mg PO UD PRN (Reason: migraines) Rx Instructions: take 1 tab at onset of headache; if no relief may repeat 1 tab after at least 4 hrs; max = 2-3 tabs per week ibuprofen 600 mg Tablet 600 mg PO Q8H PRN (Reason: Pain) triamterene-hydrochlorothiazid 37.5-25 mg capsule 1 cap PO UD Rx Instructions: four times per week-wednesday, wednesday, , wednesday pravastatin 20 mg tablet 20 mg PO UD Rx Instructions: four times per week-wednesday, wednesday, , wednesday azelastine 137 mcg (0.1 %) aerosol,spray 2 spray intranasal QAM PRN (Reason: Congestion) fluticasone propionate [Flonase Allergy Relief] 50 mcg/actuation spray,suspension 2 spray INTNAS BID PRN (Reason: Congestion) Rx Instructions: administer into each nostril lisinopril 2.5 mg tablet 2.5 mg PO QAM levothyroxine 112 mcg tablet 112 mcg PO QAM fluocinolone acetonide oil 0.01 % drops 3 drp otic (ear) QAM PRN (Reason: ear itching) Rx Instructions: Apply to affected ear once daily, 2- days/week PRN itchy ear docusate sodium [Colace] 100 mg capsule 100 mg PO BID Qty: 60 0RF oxycodone 5 mg tablet 5 mg PO Q6H PRN (Reason: pain) Qty: 14 0RF Discharge Orders: Discharge Order (Routine); Ordered 07/03/22 Ordered By: Dennys Singh Admission Data Admit Date/Time: 07/02/22 10:35 Attending Provider: Yaron Geller Admit Provider: Yaron Geller Primary Care Provider: Manas Fulton
[2022-07-03] MEDS ORDERED: CeleBREX 200 MG CAP PO SCH (21:00)
[2022-07-04] MEDS ORDERED: PRAVASTATIN SOD 20 MG TAB PO SCH (09:00)
== END 2022-07-03 11:18 | disposition home health service (06) ==
LOC: 3E 06:35 → ASU 06:35

== ENCOUNTER 2022-11-19 05:00 | Observation (INO) ==
--- NOTE | 2022-11-02 15:25 | History & Physical Report ---
Date of Service November 02, 2022 Assessment & Plan (1) Osteoarthritis of left knee: Plan: PRE-OP Diagnosis: Left knee osteoarthritis Planned Procedure: Left total knee arthroplasty Plan: Patient is scheduled to undergo this procedure at the [facility] on November 19, [address] Geller. Risks and complications of the procedure such as: Infection, bleeding, pain, scarring, nerve blood vessel damage, weakness, wound problems, stiffness, incomplete relief of symptoms, hardware failure, hardware loosening, wear, fracture, tendon overuse injury, blood clots, embolism, heart attack, stroke and were explained to the patient and her visit today. Informed consent to perform the procedure was obtained. Patient also understands risks of proceeding with surgical intervention during the COVID-19 pandemic. Currently she is asymptomatic and has not been in contact with anyone positive for the virus recently. During today's visit we reviewed the total knee packet. We discussed lectures offered by [facility] in regards to total joint surgery. I provided patient with orders to obtain a CBC with differential, complete metabolic panel, PT/INR, urinalysis, urine culture and sensitivity, hemoglobin A1c and a nasal c ulture for MRSA. Her EKG is up-to-date from her recent total hip arthroplasty. She is scheduled to meet with her primary care provider on November 04 for clearance. She does not need to meet with anesthesia due to her recent hip surgery. I provided her with paperwork to obtain an updated handicap placard for her vehicle. She has a walker that she will bring with her on the day of the procedure. She also has a shower chair and a raised toilet seat. We discussed discharge planning and I advised the patient that she will be on aspirin again for DVT prophylaxis and will prescribe her narcotic anti- inflammatory agent to control her pain postsurgically. Patient be scheduled for 2-week postoperative follow-up with myself on December 02. She is electing to do in-home physical therapy for the first 2 weeks with [facility] and will transition to outpatient physical therapy in our PT clinic and I will provide her with an order for this at her 2-week postoperative follow-up visit. This chart was completed utilizing Guest of a Guest voice recognition software. Grammatical errors, random word insertions, pronoun errors, and in complete sentences are an occasional consequence of the system. Any questions or concerns about the content, text, or information contained within the body of this dictation should be addressed directly to the physician for clarification. History of Present Illness Chief Complaint: Chief Complaint: Left knee pain Primary Care Provider: Manas Fulton MD History of Present Illness (including history relevant to procedure): This 66-year-old female presents to the clinic today for preoperative history and physical. Patient complains of left knee pain has been ongoing for the past 1 to 2 years. She localizes most of the pain to the medial aspect of her knee. She states that it hurts when she is on it for long period of time and when she transitions from a seated to a standing position. Patient underwent a right total hip arthroplasty with Dr. Geller back on July 02 and has had great results. She is electing to proceed with a left total knee arthroplasty for her degenerative joint disease. Review Of Systems: A 12 point review of systems is performed and is unremarkable except for those things stated in the HPI and past medical history. Past Medical History: Problems: Pain due to right hip joint prosthesis History of right hip replacement Osteoarthritis of right hip Plantar fasciitis Left knee pain Intestinal metaplasia of gastric mucosa Lizarraga esophagus S/P left knee arthroscopy Pre-op exam Torn meniscus Knee pain, left Osteoarthritis of knee Procedure History Procedure Procedure Date Comments Knee Colonoscopy 06/25/2021 - Pathology showed polyps were comprised of nerve tissue that is considered benign. Does not increase of risk cancer. Repeat in 10 years. - COLO to cecum, 2 mm sigmoid polyp CF, 4 mm rectal polyp CF, redundant colon, left colon diverticulosis Laboratory findings data interpretation 12/27/2020 - Mg 1.9 nl Esophagogastroduodenoscopy 11/22/2020 - one area of intestinal metaplasia of stomach no Baretts identified. egd repeat in 3 years. follow up scheduled. - EGD irregular Z line bx, antral erythema. gastric mapping biopsies done. Esophagogastroduodenoscopy 08/24/2019 - 1 cm HH - EGD anrral eythema bx, gastric polyps fundus bx, GE ring bx, mid esoph nl bx Allergies and Sensitivities: NKA Current Home Meds: (Last Updated 10/30 12:52) cholecalciferol (Vitamin D3 5000 intl units (125 mcg) oral tablet) cyanocobalamin (Vitamin B12 1000 mcg oral tablet) 5000 mcg weekly diazePAM (diazePAM 2 mg oral tablet) TAKE ONE TABLET BY MOUTH TWICE DAILY NEEDED FOR dizziness OR vertigo docusate (Colace) 100 mg PO bid ferrous sulfate (ferrous sulfate 325 mg (65 mg elemental iron) oral tablet) 1 tab PO Daily four times per week. hydroCHLOROthiazide-triamterene (hydroCHLOROthiazide-triamterene 25 mg-37.5 mg oral capsule) TAKE ONE CAPSULE BY MOUTH EVERY DAY ibuprofen (ibuprofen 600 mg oral tablet) 600 mg PO qid PRN: as needed for pain levothyroxine (Levothroid 100 mcg (0.1 mg) oral tablet) 1 tab PO Daily 112 mcg lisinopril (lisinopril 2.5 mg oral tablet) TAKE ONE TABLET BY MOUTH EVERY DAY omeprazole (omeprazole 40 mg oral delayed release capsule) TAKE ONE CAPSULE BY MOUTH EVERY DAY oxyCODONE (oxyCODONE 5 mg oral tablet) 5 mg PO q4h PRN: as needed for pain post op pain ongoing tx pravastatin (pravastatin 20 mg oral tablet) TAKE ONE TABLET BY MOUTH AT BEDTIME four TIMES A WEEK unknown medication (Fiber con) 1 tab po daily Allergies Allergy/AdvReac Type Severity Reaction Status Date / Time No Known Drug Allergies Allergy Verified 09/14/22 10:18 Home Medications Medication Instructions Recorded Confirmed Type ferrous sulfate 325 mg (65 mg 325 mg PO UD 03/28/19 09/14/22 History iron) tablet cholecalciferol (vitamin D3) 125 5,000 unit PO QAM 06/26/19 09/14/22 History mcg (5,000 unit) tablet (Vitamin D3) diazepam 2 mg tablet (Valium) 2 mg PO BID PRN dizziness or 08/20/20 09/14/22 Rx vertigo #10 tabs ondansetron 4 mg disintegrating 4 mg PO Q8H PRN nausea and 11/12/20 09/14/22 Rx tablet vomiting #30 tabs docusate sodium 100 mg capsule 100 mg PO BID #60 caps 04/22/21 09/14/22 Rx (Colace) oxycodone 5 mg tablet 5 mg PO Q6H PRN pain #14 tabs 04/22/21 09/14/22 Rx calcium polycarbophil 625 mg 625 mg PO QAM 06/10/21 09/14/22 History tablet (FiberCon) naratriptan 2.5 mg tablet (Amerge) 2.5 mg PO UD PRN migraines 11/28/21 09/14/22 History mecobalamin (vitamin B12) 1,000 1,000 mcg PO UD 12/12/21 09/14/22 History mcg chewable tablet (B12 Active) clobetasol 0.05 % topical cream See Rx Instructions .Route 02/25/22 09/14/22 Rx .COMPLEX #60 grams prochlorperazine maleate 10 mg 10 mg PO Q8H PRN nausea and 03/13/22 09/14/22 Rx tablet (Compazine) vomiting #20 tabs lorazepam 0.5 mg tablet 0.5 mg PO HS PRN Anxiety #30 tabs 05/13/22 09/14/22 Rx azelastine 137 mcg (0.1 %) nasal 2 spray intranasal QAM PRN 06/09/22 09/14/22 History spray aerosol Congestion fluticasone propionate 50 2 spray intranasal BID PRN 06/09/22 09/14/22 History mcg/actuation nasal Congestion spray,suspension (Flonase Allergy Relief) ibuprofen 600 mg tablet 600 mg PO Q8H PRN Pain 06/09/22 09/14/22 History levothyroxine 112 mcg tablet 112 mcg PO QAM 06/09/22 09/14/22 History pravastatin 20 mg tablet 20 mg PO UD 06/09/22 09/14/22 History omeprazole 40 mg capsule,delayed 40 mg PO QAM #90 caps 06/29/22 09/14/22 Rx release oxycodone 5 mg tablet 5 mg PO Q4H Post op pain control 07/03/22 09/14/22 Rx #28 tabs diclofenac sodium 75 mg 75 mg PO BID post op pain and 08/04/22 09/14/22 History tablet,delayed release inflammation relief fluocinolone acetonide oil 0.01 % 3 drp otic (ear) QAM PRN ear 08/04/22 09/14/22 Rx ear drops itching #20 mL triamterene 37.5 1 cap PO .q4xWK #20 caps 09/02/22 09/14/22 Rx mg-hydrochlorothiazide 25 mg capsule lisinopril 2.5 mg tablet 2.5 mg PO QAM #90 tabs 10/01/22 Rx Past Med/Surg History Medical History (Updated 11/02/22 @ 15:24 by Dennys Singh PA-C) Anemia stable-on iron pills Clogged ear Diverticulitis GERD (gastroesophageal reflux disease) controlled, stable per pt Headache History of COVID-19 03/06/22, home test, not hosp; dizziness, nausea, cough, headache>resolved. History of vertigo no recent problems Hyperlipidemia Hypertension controlled, stable per pt Hypothyroidism Labial abscess Nausea after anesthesia "happened once" Otalgia, left ear "under control with medication" Pharyngitis, acute Ruptured epidermal cyst Vertigo Vestibular migraine meds prn; "very rare now" Surgical History History of esophagogastroduodenoscopy (EGD) History of excision of lesion throat Hx of arthroscopy of left knee x2 Hx of colonoscopy with polypectomy Family History Mother Rheumatoid arthritis Hypertension Stroke Cancer Father Hypertension Stroke Cancer FH: deafness or hearing loss Family/Other Stroke Other Family history of blood clots Denies family history of Colon cancer Ovarian cancer Prostate cancer Myocardial infarction Breast cancer Social History (Updated 08/07/22 @ 10:47 by Drea Hope RN) Smoking Status: Never smoker Second Hand Exposure: Yes (mother in law lived w/ pt, she was a smoker); Hx Alcohol Use: Yes Alcohol type: beer, wine and hard liquor Alcohol Intake Frequency Comment: socially Hx Substance Use: No Preferred Language: [place] Citizen Communication Ability: Effective Visual Impairment: No Limitations Hearing Ability: Normal Rose Grading Supervisor Required: No Beliefs That Will Affect Care: None marital status: Current Living Situation: Spouse Current Living Situation Comment: 2 story home, 3 steps to enter, 1 st floor bath current occupational status: retired How many Children do You have: 2 Feels Safe at Home: Yes Childhood Exposure to Second-Hand Smoke: No during the past year weight has: increased > 10 lbs Dental Care, Regularly: Yes Physical Activity Frequency: 1-2 Times per Week Seatbelt Use: always Sunscreen Use: Yes Assistive Devices: Walker Physical Exam Physical Exam: Physical Exam: (relevant to the procedure, including heart and lung evaluation) General: Alert and oriented x3 with proper grooming and hygiene Eyes: Pupils are equal and reactive to light with accommodation. Extraocular lids are intact Throat: Posterior oropharynx clear with absence of edema, erythema or exudate. Dentition is appropriate Cardiac: Regular rate and rhythm no murmurs or gallops appreciated Lungs: Clear to auscultation throughout with no wheezing, rales or rhonchi Abdomen: Nonobese, nondistended, nontender with NABS Extremities: Left knee: Patient's range of motion is from full degrees of extension to about 120 degrees of flexion. There is crepitation with passive range of motion. Patient experiences medial and lateral joint line tenderness when the knee is palpated in the flexed position. Patella is not mobile due to arthritic change within the patellofemoral joint. She has no laxity with varus valgus stressing. AP drawer sign [place] test are negative. She is neuro vascularly intact in the left lower extremity. Neuro: Cranial nerves II through XII are intact no motor or sensory deficit Skin: Normal in appearance with no open skin areas or discharge Results & Data ([facility]) Diagnostic Findings Studies (relevant to the procedure): Radiographic imaging: Left knee x-rays from April 2021 reviewed by me show tricompartmental osteophyte formation and bone on bone arthritis in the patellofemoral joint
--- NOTE | 2022-11-13 08:43 | Anesthesiology Consultation ---
Date of Service November 13, 2022 Assessment & Plan (1) Encounter for pre-operative examination: Chart Review Chart Review: Acceptable Risk for Surgery and Patient NOT seen in Pre Admission Testing - Pt is not an ideal Outpatient Joint candidate (did not come through [facility] and stayed overnight with 06/2022 DARREN) -COVID screening: Per [facility] nursing assessment on -. No known COVID-19 positive contacts or current COVID-19 related symptoms. Travel screen negative. Patient vaccinated for Covid. At surgeon discretion if preop Covid testing being done. Pt seen by PCP 11/05/22= seen for preop evaluation. "Using the revised cardiac risk index, she is class I, low risk for perioperative cardiovascular complications with upcoming knee replacement surgery." Right DARREN 07/02/22= Done under SAB at L3-4 with 1 attempt (Pt with history of presumed PFO on 2018 ECHO- per 06/2022 anesthesia consult- discussed with Dr. Naranjo- BONIFACIO/continuity of care note sent to PCP- pt tolerated SAB and surgery well. Pt was approved for current surgery 11/05/22 by PCP. Discussed with Dr. Cohen- patient can proceed as scheduled) History Surgery Operation Date: 11/19/22 07:00 Proposed Procedures p Left Total Knee Arthroplasty - Yaron Geller MD Height/Weight Height: 5 ft 4 in Weight: 81.647 kg Allergies Allergy/AdvReac Type Severity Reaction Status Date / Time No Known Drug Allergies Allergy Verified 11/12/22 16:40 Medications Home Medications Medication Instructions Recorded Confirmed Last Taken ferrous sulfate 325 mg (65 mg 325 mg PO UD 03/28/19 11/12/22 07/01/22 07:00 iron) tablet cholecalciferol (vitamin D3) 125 5,000 unit PO QAM 06/26/19 11/12/22 07/01/22 07:00 mcg (5,000 unit) tablet (Vitamin D3) diazepam 2 mg tablet (Valium) 2 mg PO BID PRN dizziness or 08/20/20 11/12/22 Unk nown vertigo #10 tabs ondansetron 4 mg disintegrating 4 mg PO Q8H PRN nausea and 11/12/20 11/12/22 11/27/21 tablet vomiting #30 tabs docusate sodium 100 mg capsule 100 mg PO BID #60 caps 04/22/21 11/12/2222 19:00 (Colace) calcium polycarbophil 625 mg 625 mg PO QAM 06/10/21 11/12/22 07/01/22 07:00 tablet (FiberCon) naratriptan 2.5 mg tablet (Amerge) 2.5 mg PO UD PRN migraines 11/28/21 11/12/22 Unknown clobetasol 0.05 % topical cream See Rx Instructions .Route 02/25/22 11/12/22 Unknown .COMPLEX #60 grams prochlorperazine maleate 10 mg 10 mg PO Q8H PRN nausea and 03/13/22 11/12/22 Unknown tablet (Compazine) vomiting #20 tabs lorazepam 0.5 mg tablet 0.5 mg PO HS PRN Anxiety #30 tabs 05/13/22 11/12/22 Unknown azelastine 137 mcg (0.1 %) nasal 2 spray intranasal QAM PRN 06/09/22 11/12/22 Unknown spray aerosol Congestion fluticasone propionate 50 2 spray intranasal BID PRN 06/09/22 11/12/22 Unknown mcg/actuation nasal Congestion spray,suspension (Flonase Allergy Relief) ibuprofen 600 mg tablet 600 mg PO Q8H PRN Pain 06/09/22 11/12/22 06/25/22 07:00 levothyroxine 112 mcg tablet 112 mcg PO QAM 06/09/22 11/12/22 07/02/22 05:00 pravastatin 20 mg tablet 20 mg PO UD 06/09/22 11/12/22 07/02/22 05:00 omeprazole 40 mg capsule,delayed 40 mg PO QAM #90 caps 06/29/22 11/12/22 07/02/22 05:00 release oxycodone 5 mg tablet 5 mg PO Q4H Post op pain control 07/03/22 11/12/22 Unknown #28 tabs diclofenac sodium 75 mg 75 mg PO BID post op pain and 08/04/22 11/12/22 Unknown tablet,delayed release inflammation relief fluocinolone acetonide oil 0.01 % 3 drp otic (ear) QAM PRN ear 08/04/22 11/12/22 Unknown ear drops itching #20 mL triamterene 37.5 1 cap PO .q4xWK #20 caps 09/02/22 11/12/22 Unknown mg-hydrochlorothiazide 25 mg capsule lisinopril 2.5 mg tablet 2.5 mg PO QAM #90 tabs 10/01/22 11/12/22 Unknown cyanocobalamin (vitamin B-12) 5,000 mcg PO .weekly 11/06/22 11/12/22 Unknown 5,000 mcg disintegrating tablet cefdinir 300 mg capsule 300 mg PO BID #10 caps 11/11/22 11/12/22 Unknown Past Medical History Medical History (Updated 11/13/22 @ 09:16 by Dea Carbone PA-C) Anemia stable-on iron pills Diverticulitis hx GERD (gastroesophageal reflux disease) controlled, stable per pt History of COVID-19 03/06/22, home test, not hosp; dizziness, nausea, cough, headache>resolved. History of vertigo no recent problems Hyperlipidemia Hypertension controlled, stable per pt Hypothyroidism Nausea after anesthesia "happened once" Otalgia, left ear "under control with medication" PFO (patent foramen ovale) Suspected on 2018 ECHO Positive urine culture 11/09/22. reason for abx per pt Prediabetes Presumed- Hgb A1C 6.2 on 11/09/22 Vestibular migraine meds prn; "very rare now" Past Family History Family History Mother Rheumatoid arthritis Hypertension Stroke Cancer Father Hypertension Stroke Cancer FH: deafness or hearing loss Family/Other Stroke Other Family history of blood clots Denies family history of Colon cancer Ovarian cancer Prostate cancer Myocardial infarction Breast cancer Past Surgical History Surgical History History of esophagogastroduodenoscopy (EGD) History of excision of lesion throat History of right hip replacement 07/02/22 [facility] Hx of arthroscopy of left knee x2 Hx of colonoscopy with polypectomy Social History Smoking Status: Never smoker Do You Dip or Chew Tobacco: No Hx Alcohol Use: Yes Alcohol type: beer and wine alcohol intake frequency: holidays/special occasions only Hx Substance Use: No substance use type: does not use Lab Results Anesthesia Preop Results Results Anesthesia Widget: WBC 6.65 K/ul (4.8-10.8) 11/09/22 Hgb 13.6 g/dl (12.0-16.0) 11/09/22 Hct 41.4 % (37.0-47.0) 11/09/22 Plt 285 K/uL (130-400) 11/09/22 Na 138 mmol/L (136-145) 11/09/22 K 4.3 mmol/L (3.5-5.1) 11/09/22 Cl 102 mmol/L (98-107) 11/09/22 CO2 30 mmol/L (21-32) 11/09/22 BUN 14 mg/dl (6-23) 11/09/22 Creat 0.82 mg/dl (0.6-1.2) 11/09/22 Glucose Level 110 mg/dl (70-99(Fasting)) H 11/09/22 PT 10.0 Seconds (9.0-12.0) 11/09/22 INR 0.9 (0.9-1.1) 11/09/22 TSH 2.464 uIu/ml (0.300-4.500) 11/09/22 HA1c 6.2 % (4.5-5.6) H 11/09/22 Urine Color Yellow 11/09/22 Urine Appearance Clear (Clear) 11/09/22 Urine pH 5.5 (4.5-7.5) 11/09/22 Urine Specific [place] 1.019 (1.000-1.030) 11/09/22 Urine Protein Negative (Negative) 11/09/22 Urine Glucose (UA) Negative (Negative) 11/09/22 Urine Ketones Trace (Negative) H 11/09/22 Urine Blood Negative (Negative) 11/09/22 Urine Nitrite Negative (Negative) 11/09/22 Urine Bilirubin Negative (Negative) 11/09/22 Urine Urobilinogen Negative (Negative) 11/09/22 Urine Leukocyte Esterase Negative (Negative) 11/09/22 Testing Laboratory Results 11/09/22= URINE CULTURE: Gamma strep not enterococcus (50,000CFU/ml). No sensitivities to follow. Plus low counts of other mixed khloe Electrocardiogram Date: 06/16/22 Sinus bradycardia, rate 54 bpm Chest X-Ray Date: 06/16/22 No acute chest disease. Echocardiogram Date: 06/27/19 EF 50-55% Normal LV wall motion Mild cLVH Grade II diastolic dysfunction PFO suspected No significant valvular pathology Other Testing Neck CTA 06/27/19 No evidence of dissection, focal vessel occlusion, or significant stenosis of the cervical arteries.
[2022-11-19] MEDS ORDERED: dexAMETHasone 4 MG TAB PO SCH (06:00)
[2022-11-19] MEDS ORDERED: ceFAZolin 2000MG 2,000 MG/15 ML SYR IV SCH (06:00)
[2022-11-19] MEDS ORDERED: LR 60ML/HR IV SCH (06:00)
[2022-11-19] MEDS ORDERED: traMADol HCL 50 MG TABLET PO SCH (06:00)
[2022-11-19] MEDS ORDERED: TRANEXAMIC ACID 1,000 MG **IV Pre-op IV SCH (06:00)
[2022-11-19] MEDS ORDERED: Scopolamine 1 MG TDSY TD SCH (06:00)
[2022-11-19] MEDS ORDERED: CeleBREX 200 MG CAP PO SCH (06:00)
[2022-11-19] MEDS ORDERED: ROPIVACAINE 0.5% HCL/PF 150 MG, BUPIVACAINE 0.75% MPF 20 ML, EPINEPHrine 0.15 MG, Ketor... INFIL SCH (06:00)
[2022-11-19] MEDS ORDERED: TRANEXAMIC ACID 1,000 MG **IV Intra-op IV SCH (06:00)
[2022-11-19] MEDS ORDERED: ACETAMINOPHEN 500 MG TAB PO SCH (06:00)
[2022-11-19] MEDS ORDERED: LR 500ML BOLUS, THEN 15ML/HR IV SCH (06:00)
[2022-11-19] MEDS ORDERED: FAMOTIDINE 20 MG TAB PO SCH (06:00)
[2022-11-19] MEDS ORDERED: BUPIVACAINE 0.5 % 5 MG/1 ML PF 10ML VIAL ONE (06:24)
[2022-11-19] MEDS ORDERED: BUPIVACAINE 0.25% PF 30 ML VIAL ONE (06:24)
[2022-11-19] MEDS ORDERED: ePHEDrine sulfate 50 MG/ML AMP IV PRN (06:34)
[2022-11-19] MEDS ORDERED: ATROPINE SULFATE 0.1 MG/ML 10ML SYR IV PRN (06:34)
[2022-11-19] MEDS ORDERED: HYDROmorphone INJ 1 MG/ML SYRINGE IV PRN (06:34)
[2022-11-19] MEDS ORDERED: PROMETHAZINE HCL 6.25 MG in SODIUM CHLORIDE 0.9% 50 ML IV PRN (06:34)
[2022-11-19] MEDS ORDERED: ONDANSETRON INJ 2 MG/ML 2 ML VIAL IV PRN ×2 (06:34→08:56)
[2022-11-19] MEDS ORDERED: fentaNYL citrate PF 100 MCG/2 ML VIAL IV PRN (06:34)
[2022-11-19] MEDS ORDERED: ONDANSETRON INJ 2 MG/ML 2 ML VIAL ONE ×2 (06:43→08:30)
[2022-11-19] MEDS ORDERED: PROPOFOL IV EMULSION 10 MG/ML 20 ML VIAL IV ONE ×3 (06:43→08:10)
[2022-11-19] MEDS ORDERED: MIDAZOLAM HCL 1 MG/ML 2ML VIAL ONE (06:43)
[2022-11-19] MEDS ORDERED: fentaNYL citrate PF 100 MCG/2 ML VIAL ONE (06:43)
[2022-11-19] MEDS ORDERED: ORTHO JOINT ANESTHETIC ONE (07:02)
[2022-11-19] MEDS ORDERED: ePHEDrine sulfate 50 MG/ML AMP ONE (08:18)
--- NOTE | 2022-11-19 08:50 | Operative Report ---
Post Operative Report Pre & Post Diagnosis Operation Date: 11/19/22 07:00 Pre-Op Diagnosis: Osteoarthritis Knee Left Post-Op Diagnosis: Osteoarthritis Knee Left I identified the patient and participated in the time-out.: Yes Procedure Operation Date: 11/19/22 07:00 Actual Procedures p Left Total Knee Arthroplasty(Left) - Yaron Geller MD Surgeon Yaron Geller MD Daycare Provider SHANON Singh PA-C. No resident or fellow was available to assist. Estimated Blood Loss 50 Findings Consistent with Post-Op Diagnosis Specimens Left knee bone and soft tissue contents Anesthesia Type Spinal MAC Complications none Disposition Disposition: Recovery Room Indications 66-year-old female with left knee osteoarthritis refractory to conservative management. X-rays demonstrate [id number] arthritis. I had a long discussion with her about the risks and benefits of surgery, alternatives to surgery, and expected outcomes. After reviewing all these she elected to proceed with surgery. All questions answered. Informed consent was signed. Description of Procedure Patient was identified in the preoperative holding area where the surgical site, left knee, was marked. Spinal anesthetic was placed by anesthesia. Patient was brought back to the operating room, placed on the operating room table, and IV sedation was administered. A bump was placed underneath the ipsilateral hip. All bony prominences were padded. Perioperative antibiotics and tranexamic acid were administered. Exam under anesthesia was performed. This demonstrated patient's range of motion to be 10 degrees to 100 degrees. Stable to varus and valgus stress at 30 degrees. The surgical site was prepped and draped in the normal sterile fashion. Prior to incision a multidisciplinary timeout was called. All in the room were in agreement. We began by exsanguinating the limb with an Esmarch bandage. Tourniquet was inflated to 250 mmHg. A 14 cm long incision was made over the anterior aspect of the knee. I dissected through the subcutaneous tissues to the level of the fascia. Full-thickness flaps were raised above the fascia. A median parapatellar arthrotomy was made. Half the fat pad was excised. A medial release was performed with Bovie electrocautery on the proximal tibia. Synovitis in the knee and suprapatellar pouch was removed. The patella was then everted and held with 2 towel clips. There was severe chondral loss, mild bone erosion, and large circumferential osteophytes. The thickness of the patella was measured at 21 mm. Patellar resection was performed. Caliper showed the patella thickness now to be 15 mm. A size 35 trial was placed and had a great fit. The 3 drill holes were placed then the trial button was placed. The patellar thickness was now 24 mm which I was very happy with, as this is likely closer to the normal thickness of her patella before her arthritis said and. The patellar trial was then removed, and the knee was flexed up. Retractors were placed to protect the MCL and LCL. Osteophytes were removed from the femoral condyles and intercondylar notch. The ACL and PCL were excised. Intramedullary drill guide was drilled into the femur. Distal femoral cutting guide was placed set at 5 degrees of valgus to resect 10 mm off the distal femur. Distal femoral resection was made without difficulty. The tibia was then exposed. The lateral meniscus was sharply excised. The tibial cutting jig was positioned in line with the tibial shaft in the coronal plane and with 3 degrees of posterior slope in the sagittal plane to resect 9 mm off the less involved compartment. The jig was then pinned in position and the tibial cut was made. We then brought the knee into full extension. Lamina spreaders were placed. The medial meniscus was excised. The extension block was then placed for 5 mm thickness poly. This gave us full extension and excellent stability to varus and valgus stress. Next the extension block was removed, the knee was flexed up, collateral ligaments were protected, and the epicondylar axis and Whitesides line were marked out on the distal femoral cut. Femoral sizing guide was placed. External rotation was set at 3 degrees so that the posterior cut would be parallel with the epicondylar axis and perpendicular with Whitesides line. The patient sized to a size 6 femur. 2 pins were then placed through the jig into the distal femur. The jig was removed and the appropriately sized 4-in-1 cutting jig was placed over the pins, then fixated to the bone using threaded, headed pins. We confirmed that we would not notch the femur with our anterior cut. Our 4 cuts were then made. The cutting jig was removed. The flexion block was then placed with the knee held at 90 degrees. There was excellent stability to varus and valgus at 90 degrees with no gapping medially or laterally. Next the box cutting jig was placed on the distal femur. The box cut was made and the femoral trial was impacted into position. Lug holes were drilled in the distal femur. We then reexposed the tibia. The tibia was sized to a 5 for a fixed bearing component. The tibial tray with a 5 mm thickness polyethylene liner was placed on the cut tibial surface and the knee was brought through a full range of motion. There was excellent stability to varus valgus stress throughout a full range of motion, which was approximately 0-125 degrees. Bovie electrocautery was used to alysha the tibia at the site where the tibial tray rested in full extension. We then flexed up the knee, removed the polyethylene liner, and pinned the tibial tray into position to match the cautery alysha. The intramedullary drill followed by the keel punch were used to prepare the tibia. Next the trial components were removed. I then injected the posterior capsule and periosteum with the periarticular injection cocktail. The bone cuts were then irrigated and dried while the cement was mixed on the back table. The femoral component was cemented on first. Excess cement was removed. A lap sponge was placed over the femoral component for protection, then the tibia was subluxated anteriorly. The all polyethylene tibial component was then cemented in place. Again excess cement was removed. The knee was brought into full extension and held there until the cement cured. The patella was cemented and clamped. Dilute Betadine solution was then allowed to soak in the knee while the cement cured. Once the cement was fully cured, the knee was irrigated out, the tourniquet was let down and meticulous hemostasis was ensured. The knee was brought through a full range of motion. I was were very happy with the patella tracking and the stability. We then began to close. Interrupted 0 Vicryl suture was used to repair the patellar retinaculum in [id number] fashion. The quadriceps and patellar tendons were run with #1 Vicryl. The deep dermal layer was closed with interrupted 2-0 Vicryl. Dermabond and Zipline was used for the skin, followed by a Silverlon dressing. A compressive Fito wrap was placed and the knee was placed into a knee immobilizer. Patient's sedation was lifted and was transferred to recovery room in stable condition. Summary of implants: Depuy Attune Posterior Stabilized Cemented Femur, size 6 narrow left Attune All-polyethylene tibial component, posterior stabilized 5 mm thickness, size 5 Attune patella medialized dome, size 35 2 batches of simplex high viscosity bone cement Postoperative course: Patient will be admitted to the floor for pain control and monitoring. Weightbearing as tolerated with a walker with no knee range of motion for 48 hours. Aspirin for DVT prophylaxis. I attest to the content of the Intraoperative Record and any orders documented therein. Any exceptions are noted below.
[2022-11-19] MEDS ORDERED: METOCLOPRAMIDE HCL INJ 5 MG/ML 2 ML VIAL IV PRN (08:56)
[2022-11-19] MEDS ORDERED: HYDROmorphone INJ 0.5 MG/0.5 ML SYR IV PRN (08:56)
[2022-11-19] MEDS ORDERED: NALOXONE HCL 0.4 MG/1 ML VIAL/CARP IV PRN (08:56)
[2022-11-19] MEDS ORDERED: bisacodyL 10 MG SUPP PR PRN (08:56)
[2022-11-19] MEDS ORDERED: MAGNESIUM HYDROXIDE SUSP 30 ML UDC PO PRN (08:56)
[2022-11-19] MEDS ORDERED: ALUMINUM/MAGNESIUM SUSP 30 ML UDC PO PRN (08:56)
[2022-11-19] MEDS ORDERED: diphenhydrAMINE 50 MG/ML VIAL IV PRN (08:56)
--- NOTE | 2022-11-19 08:56 | Operative Report ---
Post Operative Report Pre & Post Diagnosis Operation Date: 11/19/22 07:00 Pre-Op Diagnosis: Osteoarthritis Knee Left Post-Op Diagnosis: Osteoarthritis Knee Left I identified the patient and participated in the time-out.: Yes Procedure Operation Date: 11/19/22 07:00 Actual Procedures p Left Total Knee Arthroplasty(Left) - Yaron Geller MD Surgeon Yaron Geller MD Ap Processor SHANON Singh PA-C. No resident or fellow was available to assist. Estimated Blood Loss 50 Findings Consistent with Post-Op Diagnosis Specimens none Description of Procedure I was present during the entire case assisting with positioning, prepping, draping, wound retraction, wound closure, dressing and immobilizer placement. No fellow present. Please see Dr. Geller procedure note for specifics of the case. I attest to the content of the Intraoperative Record and any orders documented therein. Any exceptions are noted below.
[2022-11-19] MEDS ORDERED: LORazepam 0.5 MG TAB PO PRN (09:00)
[2022-11-19] MEDS ORDERED: PROCHLORPERAZINE MALEATE 10 MG TAB PO PRN (09:00)
[2022-11-19] MEDS ORDERED: diazePAM 2 MG TABLET PO PRN (09:00)
[2022-11-19] MEDS ORDERED: AZELASTINE HCL 0.1% NASAL 200 SPRAYS/27,400 MCG BTL NAE PRN (09:00)
[2022-11-19] MEDS ORDERED: FLUTICASONE PROPIONATE NA SPR 16 GM BTL NAE PRN (09:00)
[2022-11-19] MEDS ORDERED: DOCUSATE SODIUM 100 MG CAP PO SCH (09:00)
--- NOTE | 2022-11-19 09:43 | XRay Report ---
LEFT KNEE 2 VIEWS History: Left total knee arthroplasty. Degenerative arthritis. Postop. FINDINGS: The patient is status post a left total knee arthroplasty. The hardware is intact. No fract ure or dislocation. IMPRESSION: Left total knee arthroplasty. No evidence for hardware complication. ACT 112: Negative or not required by law. Electronically signed by: Adalberto Grewal M.D. 11/19/2022 9:42 AM
[2022-11-19] MEDS: SODIUM CHLORIDE 0.9% 1000ML 1,000 ML IV SCH ×2 (10:32→20:14)
[2022-11-19] MEDS ORDERED: TRIAMTERENE/HCTZ 37.5/25MG CAP PO SCH (11:00)
[2022-11-19] MEDS: DOCUSATE SODIUM 100 MG CAP PO SCH ×2 (11:25→19:57)
[2022-11-19] MEDS: POLYETHYLENE (MIRALAX) 17 GM PACK PO SCH (11:25)
[2022-11-19] MEDS: CALCIUM POLYCARBOPHIL 625MG TAB PO SCH (11:26)
[2022-11-19] MEDS: ASPIRIN 81 MG ECTAB PO SCH ×2 (11:27→19:57)
[2022-11-19] MEDS: lisinopril 2.5 MG TAB PO SCH (11:27)
[2022-11-19] MEDS: CHOLECALCIFEROL 5,000 UNITS 125 MCG TAB PO SCH (11:27)
[2022-11-19] MEDS: MULTIVITAMIN TAB PO SCH (11:27)
[2022-11-19] MEDS: KETOROLAC TROMETHAMINE 15 MG/ML VIAL IV SCH ×3 (11:30→23:06)
[2022-11-19] MEDS: ACETAMINOPHEN 500 MG TAB PO SCH ×2 (13:14→21:09)
[2022-11-19] MEDS: ceFAZolin 2000MG 2,000 MG/15 ML SYR IV SCH ×2 (14:48→23:07)
[2022-11-19] MEDS: Scopolamine CHECK PATCH PLACEMENT SCH ×2 (14:59→23:49)
[2022-11-19] MEDS ORDERED: TRANEXAMIC ACID / 0.7% NACL 1,000 MG/100 ML BAG IV SCH (15:00)
[2022-11-19] MEDS: oxyCODONE HCL IR 5 MG TAB (IMMEDIATE RELEASE) PO PRN (16:22)
--- NOTE | 2022-11-19 16:42 | Anesthesiology Progress Note ---
Date of Service November 19, 2022 Anesthesia Post Procedure Vital Signs Vital Signs: Temp Pulse Resp BP Pulse Ox O2 Del Method O2 Flow Rate 11/19/22 15:51 36.6 C 71 16 112/58 L 93 Room Air 11/19/22 13:18 36.4 C L 70 14 131/73 97 Nasal Cannula 2 11/19/22 12:15 36.4 C L 74 14 120/70 96 Nasal Cannula 2 11/19/22 11:15 36.4 C L 75 14 122/74 96 Nasal Cannula 2 11/19/22 10:48 Nasal Cannula 2 11/19/22 10:46 36.4 C L 77 17 133/80 95 Nasal Cannula 2 11/19/22 10:15 36.3 C L 77 17 115/71 94 Nasal Cannula 2 11/19/22 09:45 65 16 128/72 98 Nasal Cannula 2 11/19/22 09:35 73 16 135/73 98 Nasal Cannula 2 11/19/22 09:25 36.5 C 71 16 136/68 98 Nasal Cannula 2 11/19/22 09:15 76 16 138/68 95 Room Air 11/19/22 09:05 75 18 145/72 H 97 Oxymask 5 11/19/22 08:56 36.7 C 72 18 137/72 97 Oxymask 5 11/19/22 05:25 36.5 C 52 L 18 149/86 H 96 Room Air Transfer of Care Handoff Completed per policy Notes Mental Status: alert / awake / arousable and participated in evaluation Patient Amnestic to Procedure: Yes Nausea / Vomiting: adequately controlled Pain: adequately controlled Airway Patency, RR, SpO2: stable & adequate BP & HR: stable & adequate Hydration State: stable & adequate Neuraxial Anesthesia: was administered and sensory block is resolving Anesthetic Complications: no major complications apparent and Pt Satisfied with anesthetic care
[2022-11-19] MEDS ORDERED: PRAVASTATIN SOD 20 MG TAB PO SCH (21:00)
[2022-11-19] MEDS ORDERED: SENNA 8.6 MG TAB PO SCH (21:00)
[2022-11-20] MEDS: ACETAMINOPHEN 500 MG TAB PO SCH (05:46)
[2022-11-20] MEDS: KETOROLAC TROMETHAMINE 15 MG/ML VIAL IV SCH (05:46)
[2022-11-20] MEDS ORDERED: LEVOTHYROXINE SODIUM 112 MCG TABLET PO SCH (06:30)
[2022-11-20] MEDS: Scopolamine CHECK PATCH PLACEMENT SCH (07:16)
[2022-11-20] MEDS ORDERED: dexAMETHasone 4 MG TAB PO SCH (08:00)
[2022-11-20 08:33] LABS: Hemoglobin 11.1 g/dl (12.0-16.0); Mean Corpuscular Hemoglobin 31.3 pg (25.0-34.0); Mean Corpuscular Hgb Conc 33.6 g/dL (32.0-36.0); Mean Platelet Volume 10.2 fL (9.4-12.4); Platelet Count 224 K/uL (130-400); RDW Coefficient of Variation 13.2 % (11.5-14.5); RDW Standard Deviation 45.1 fL (36.4-46.3); Red Blood Count 3.55 M/uL (4.20-5.40); White Blood Count 13.24 K/ul (4.8-10.8)
[2022-11-20 08:55] LABS: BUN Creatinine Ratio 21.4 (10-20); Calcium 8.6 mg/dl (8.5-10.1); Est GFR (African American) 69.7 ml/min; Est GFR (Non-African American) 60.1 ml/min; Potassium 4.5 mmol/L (3.5-5.1)
[2022-11-20] MEDS: lisinopril 2.5 MG TAB PO SCH (08:55)
[2022-11-20] MEDS: ASPIRIN 81 MG ECTAB PO SCH (08:56)
[2022-11-20] MEDS: MULTIVITAMIN TAB PO SCH (08:56)
[2022-11-20] MEDS: CHOLECALCIFEROL 5,000 UNITS 125 MCG TAB PO SCH (08:56)
[2022-11-20] MEDS: DOCUSATE SODIUM 100 MG CAP PO SCH (08:56)
[2022-11-20] MEDS: CALCIUM POLYCARBOPHIL 625MG TAB PO SCH (08:57)
[2022-11-20] MEDS: POLYETHYLENE (MIRALAX) 17 GM PACK PO SCH (08:57)
[2022-11-20] MEDS ORDERED: FERROUS SULFATE 325 MG TAB PO SCH (09:00)
[2022-11-20] MEDS ORDERED: PANTOprazole 40 MG TAB PO SCH (09:00)
--- NOTE | 2022-11-20 10:40 | Orthopedic Progress Note ---
Date of Service November 20, 2022 Assessment & Plan (1) S/P total knee arthroplasty: Plan: Weightbearing as tolerated with walker assistance and immobilizer for first 48 hours postoperatively Pain control with p.o. medication DVT prophylaxis with aspirin and LOYD stockings Keep Silverlon dressing intact until 2-week follow-up Ice with easy wrap Plan is to discharge home today with in-home physical therapy for the first 2 weeks postoperatively. Follow-up at [facility] orthopedics as previously scheduled. With questions contact our clinic at [phone] Admission and Anticipated Discharge Date Admission Date: November 19, 2022 Subjective This 66-year-old female is day 1 status post left total knee arthroplasty. She is doing very well this morning. She has completed physical therapy and currently working with occupational therapy. She states that her pain has been well controlled with the p.o. pain medication she was provided with. She denies chest pain, shortness of breath, fever, chills, sweats, numbness or tingling in her left lower extremity. She has had no trouble voiding. She is very anxious to be discharged home. Review of Systems Review of Systems: All systems reviewed & are unremarkable except as noted in Subjective Physical Exam Physical Exam: Left knee: Outer dressing is removed. Silverlon is clean dry and intact left in place. LOYD stockings was applied. Patient is able to perform active straight leg raise test. She is able to actively dorsi and plantarflex her foot. Quad strength is 3+ out of 5. Active knee range of motion is from 0 degrees of extension to about 90 degrees of flexion. Patient is neurovascularly intact and able to easily walk with the aid of her walker. Results & Data Vital Signs (Past 12 Hours) Vital Signs Temp Pulse Resp BP Pulse Ox O2 Del Method 11/20/22 09:10 62 95 Room Air 11/20/22 07:05 36.7 C 56 L 18 103/68 93 Room Air 11/20/22 04:09 36.7 C 52 L 18 106/52 L 93 Room Air 11/19/22 23:00 36.8 C 55 L 18 107/61 94 Room Air 11/19/22 23:17 36.7 C 56 L 18 110/58 L 94 Room Air Diagnostic Findings Laboratory Results WBC 13.24 K/ul (4.8-10.8) H 11/20/22 07:49 RBC 3.55 M/uL (4.20-5.40) L 11/20/22 07:49 Hgb 11.1 g/dl (12.0-16.0) L 11/20/22 07:49 Hct 33.0 % (37.0-47.0) L 11/20/22 07:49 MCV 93.0 fL (80.0-100.0) 11/20/22 07:49 MCH 31.3 pg (25.0-34.0) 11/20/22 07:49 MCHC 33.6 g/dL (32.0-36.0) 11/20/22 07:49 RDW Std Deviation 45.1 fL (36.4-46.3) 11/20/22 07:49 RDW Coeff of Juan 13.2 % (11.5-14.5) 11/20/22 07:49 Plt Count 224 K/uL (130-400) 11/20/22 07:49 MPV 10.2 fL (9.4-12.4) 11/20/22 07:49 Sodium 136 mmol/L (136-145) 11/20/22 07:49 Potassium 4.5 mmol/L (3.5-5.1) 11/20/22 07:49 Chloride 103 mmol/L (98-107) 11/20/22 07:49 Carbon Dioxide 27 mmol/L (21-32) 11/20/22 07:49 Anion Gap 6 (3-11) 11/20/22 07:49 BUN 21 mg/dl (6-23) 11/20/22 07:49 Creatinine 0.98 mg/dl (0.6-1.2) 11/20/22 07:49 Est Cr Clr Drug Dosing 59.0 ml/min 11/20/22 07:49 Est GFR ( Amer) 69.7 ml/min 11/20/22 07:49 Est GFR (Non-Af Amer) 60.1 ml/min 11/20/22 07:49 BUN/Creatinine Ratio 21.4 (10-20) H 11/20/22 07:49 Glucose 105 mg/dl (70-99(Fasting)) H 11/20/22 07:49 Calcium 8.6 mg/dl (8.5-10.1) 11/20/22 07:49 SARS-CoV-2, RNA, NAAT NEGATIVE (NEGATIVE) 11/19/22 Unknown Blood Type O Positive 11/19/22 05:35 Antibody Screen NEGATIVE 11/19/22 05:35 Impressions Knee X-Ray 11/19/22 08:59 LEFT KNEE 2 VIEWS History: Left total knee arthroplasty. Degenerative arthritis. Postop. FINDINGS: The patient is status post a left total knee arthroplasty. The hardware is intact. No fracture or dislocation. IMPRESSION: Left total knee arthroplasty. No evidence for hardware complication. ACT 112: Negative or not required by law. Electronically signed by: Adalberto Grewal M.D. 11/19/2022 9:42 AM
--- NOTE | 2022-11-20 10:51 | Discharge Summary ---
Date of Service November 20, 2022 Admission HPI Per Admitting Provider History of Present Illness (including history relevant to procedure): This 66-year-old female presents to the clinic today for preoperative history and physical. Patient complains of left knee pain has been ongoing for the past 1 to 2 years. She localizes most of the pain to the medial aspect of her knee. She states that it hurts when she is on it for long period of time and when she transitions from a seated to a standing position. Patient underwent a right total hip arthroplasty with Dr. Geller back on July 02 and has had great results. She is electing to proceed with a left total knee arthroplasty for her degenerative joint disease. Review Of Systems: A 12 point review of systems is performed and is unremarkable except for those things stated in the HPI and past medical history. Past Medical History: Problems: Pain due to right hip joint prosthesis History of right hip replacement Osteoarthritis of right hip Plantar fasciitis Left knee pain Intestinal metaplasia of gastric mucosa Lizarraga esophagus S/P left knee arthroscopy Pre-op exam Torn meniscus Knee pain, left Osteoarthritis of knee Procedure History Procedure Procedure Date Comments Knee Colonoscopy 06/25/2021 - Pathology showed polyps were comprised of nerve tissue that is considered benign. Does not increase of risk cancer. Repeat in 10 years. - COLO to cecum, 2 mm sigmoid polyp CF, 4 mm rectal polyp CF, redundant colon, left colon diverticulosis Laboratory findings data interpretation 12/27/2020 - Mg 1.9 nl Esophagogastroduodenoscopy 11/22/2020 - one area of intestinal metaplasia of stomach no Baretts identified. egd repeat in 3 years. follow up scheduled. - EGD irregular Z line bx, antral erythema. gastric mapping biopsies done. Esophagogastroduodenoscopy 08/24/2019 - 1 cm HH - EGD anrral eythema bx, gastric polyps fundus bx, GE ring bx, mid esoph nl bx Allergies and Sensitivities: NKA Current Home Meds: (Last Updated 10/30 12:52) cholecalciferol (Vitamin D3 5000 intl units (125 mcg) oral tablet) cyanocobalamin (Vitamin B12 1000 mcg oral tablet) 5000 mcg weekly diazePAM (diazePAM 2 mg oral tablet) TAKE ONE TABLET BY MOUTH TWICE DAILY NEEDED FOR dizziness OR vertigo docusate (Colace) 100 mg PO bid ferrous sulfate (ferrous sulfate 325 mg (65 mg elemental iron) oral tablet) 1 tab PO Daily four times per week. hydroCHLOROthiazide-triamterene (hydroCHLOROthiazide-triamterene 25 mg-37.5 mg oral capsule) TAKE ONE CAPSULE BY MOUTH EVERY DAY ibuprofen (ibuprofen 600 mg oral tablet) 600 mg PO qid PRN: as needed for pain levothyroxine (Levothroid 100 mcg (0.1 mg) oral tablet) 1 tab PO Daily 112 mcg lisinopril (lisinopril 2.5 mg oral tablet) TAKE ONE TABLET BY MOUTH EVERY DAY omeprazole (omeprazole 40 mg oral delayed release capsule) TAKE ONE CAPSULE BY MOUTH EVERY DAY oxyCODONE (oxyCODONE 5 mg oral tablet) 5 mg PO q4h PRN: as needed for pain post op pain ongoing tx pravastatin (pravastatin 20 mg oral tablet) TAKE ONE TABLET BY MOUTH AT BEDTIME four TIMES A WEEK unknown medication (Fiber con) 1 tab po daily Admission Exam Per Admitting Provider Physical Exam: (relevant to the procedure, including heart and lung evaluation) General: Alert and oriented x3 with proper grooming and hygiene Eyes: Pupils are equal and reactive to light with accommodation. Extraocular lids are intact Throat: Posterior oropharynx clear with absence of edema, erythema or exudate. Dentition is appropriate Cardiac: Regular rate and rhythm no murmurs or gallops appreciated Lungs: Clear to auscultation throughout with no wheezing, rales or rhonchi Abdomen: Nonobese, nondistended, nontender with NABS Extremities: Left knee: Patient's range of motion is from full degrees of extension to about 120 degrees of flexion. There is crepitation with passive range of motion. Patient experiences medial and lateral joint line tenderness when the knee is palpated in the flexed position. Patella is not mobile due to arthritic change within the patellofemoral joint. She has no laxity with varus valgus stressing. AP drawer sign [place] test are negative. She is neurovascularly intact in the left lower extremity. Neuro: Cranial nerves II through XII are intact no motor or sensory deficit Skin: Normal in appearance with no open skin areas or discharge Principal Diagnosis Left knee osteoarthritis Discharge Exam Left knee: Outer dressing is removed. Silverlon is clean dry and intact left in place. LOYD stockings was applied. Patient is able to perform active straight leg raise test. She is able to actively dorsi and plantarflex her foot. Quad strength is 3+ out of 5. Active knee range of motion is from 0 degrees of extension to about 90 degrees of flexion. Patient is neurovascularly intact and able to easily walk with the aid of her walker. Discharge Data Allergies Allergy/AdvReac Type Severity Reaction Status Date / Time No Known Drug Allergies Allergy Verified 11/19/22 05:33 Procedures Performed Operation Date: 11/19/22 07:00 Actual Procedures p Left Total Knee Arthroplasty(Left) - Yaron Geller MD Ordered Studies 11/19/22 05:00 US - OR guided needle placemen Routine Hospital Course (1) S/P total knee arthroplasty: Patient had an uneventful over night stay following left total knee arthrop lasty. States she is doing very well. She is very anxious to be discharged home. She has completed PT and OT. She is set up with in-home physical therapy for the first 2 weeks postoperatively. Weightbearing as tolerated with walker assistance and immobilizer for first 48 hours postoperatively Pain control with p.o. medication DVT prophylaxis with aspirin and LOYD stockings Keep Silverlon dressing intact until 2-week follow-up Ice with easy wrap Plan is to discharge home today with in-home physical therapy for the first 2 weeks postoperatively. Follow-up at [facility] orthopedics as previously scheduled. With questions contact our clinic at [phone] Total Time Total Time Spent Total Time Spent (In Minutes): 20 minutes Discharge Plan Discharge Items Patient Disposition: Home - Home Health Services Reason For Visit: Osteoarthritis Knee Left Discharge Diagnosis: Left knee osteoarthritis Activity: As commented below Lifting: None Bathing: Keep incision dry Bathing Comment: May shower tomorrow Sexual Activity: Wait until after follow-up appointment Exercise/Sports: Wait until after follow-up appointment Driving/Machine Use: No driving until cleared by consumer loan specialist Weightbearing: Left weightbearing Weightbearing Comment: as tolerated with walker and immobilizer for first 48 hrs post op Non-emergency contact: Surgeon Call non-emergency contact if: you have any medication questions, your pain is not controlled, your temperature is above 101.5, your wound has increased drainage and your wound pain has increased Follow-up/Referrals: Pro,Manas Fernandes MD [Primary Care Provider] - Diet: Regular Addtl Attending Provider Instructions: Post-operative Instructions Dear Patient and Family/Friends, Before you are discharged from the hospital, it is important to know what to expect when you get home after surgery. To that end, we have created this sheet of discharge instructions which covers many commonly asked questions. Make sure you go through this sheet in its entirety with your nurse before you are discharged. Please note that we will go over the specifics of your surgery and recovery when you return for your first post-operative visit. Sincerely, Dr. Geller Medications 1. Oxycodone 5 mg: take 1-2 tabs every 4-6 hours as needed for post operative pain control. This will be sent to your pharmacy. 2. Diclofenac Sodium 75 mg: take 1 tab twice daily for the first 30 days post op for pain and inflammation relief. This will also be sent to your pharmacy with 1 refill. 3. Aspirin 81 mg: take 1 tab twice daily for 30 days post operatively for blood clot prevention. Please purchase. 4. Extra Strength Tylenol 500 mg: take 2 tabs every 6-8 hours as needed for additional pain relief. Pain Expect to be in a fair amount of pain after surgery. Remember, our goal is not to eliminate your pain, but to make it tolerable. It is a good idea to stay ahead of your pain by taking the medications you were prescribed once you get home. Typically, the pain starts improving 3-7 days after surgery. You should start weaning off the narcotic pain medication (oxycodone, hydrocodone, hydromorphone, morphine) as soon as your pain improves. Please call our office if your pain is not adequately controlled. Ice Ice your operative site at least 5 times a day for 15-30 minutes at a time. Make sure you have a thin cloth between the ice or cooling unit and your skin to prevent abarca bite. This is especially important if you received a nerve block. Continue icing your operative site for the first 5-7 days after surgery, then as needed. Diet/Nausea/Vomiting Start by drinking clear liquids and eating crackers. If you can tolerate this, then you may resume your normal diet. If you feel nauseated or vomit, take Zofr an/ondansetron (if prescribed). Please call our office if you have intractable nausea or vomiting, or, if after hours, you may go to the Emergency Room for help. Constipation Constipation is a common side effect of narcotic pain medication. If you have not had a bowel movement within 2 days after surgery, we recommend purchasing an over the counter laxative such as Milk of Magnesia, Dulcolax, or Miralax from a local pharmacy, and taking it as instructed. Call our clinic if any questions. Slings and Braces If you were placed in a sling or brace, it must be worn at all times, including sleep. You may remove your sling or brace for physical therapy, home exercises, and showering. The length of time you will be in your brace and range of motion restrictions depends on what surgery you had; these details will be reviewed at your first post-operative appointment. Nerve block The anesthesia team sometimes places a nerve block to help with post-operative pain control. This results in significant numbness and inability to move the extremity. The nerve block usually wears off in 8-12 hours, but sometimes can last up to 24 hours. Please call our office if you are still unable to move your extremity after 24 hours, unless you received a pain pump to take home. Nerve blocks typically wear off quickly, so start taking pain medication as soon as you start feeling soreness near your surgical site. Weight bearing and Range of Motion. Do not bear any weight through your operative extremity immediately after surgery. If you had upper extremity surgery, do not lift anything with that arm. If you are in a knee brace, keep it locked in place until your follow-up. We will discuss your weight bearing, range of motion, and lifting restrictions in detail at your first post-operative appointment. Continuous Passive Motion (CPM) Machine If you were prescribed a CPM machine, it will start after your first post- operative appointment, at which time we will give you instructions on the range of motion settings and duration of treatment Physical therapy You will be given a prescription for physical therapy or occupational therapy at your first post-operative appointment. Typically, patients start therapy within 1 week of surgery Wound care and showering We will inspect your wound at your first post-operative visit, and may do a dressing change at that time. Most patients will be in a water-proof dressing that is removed 14 days after surgery. It is normal to see some dried blood on the dressing. Do not remove your dressing, paper strips or sutures yourself unless you are given permission. Showering is allowed the day after surgery. Do not scrub or remove any dressings. The wound should not be submerged underwater (i.e. in a bathtub or pool) until 4 weeks after surgery LOYD stockings If you were given white stockings, these are to be worn at all times except to shower (on both legs) for the first 2 weeks after surgery. Driving You may not drive while taking narcotic pain medication or while in a cast, splint, sling or brace. You, the patient, need to make the final determination about when you are safe to drive, however, the earliest you may consider driving after surgery is below: Hand/Wrist/Elbow Surgery: 3 days Shoulder Surgery: 2 weeks Hip,/Knee/Ankle Surgery: 4 weeks Fracture repair: 6 weeks Return to Work Your return to work depends on what surgery was done and what type of work you do. Please bring any paperwork your employer needs completed to your first post-operative visit. Also, bring a description of your job duties, as this helps us to understand what risks you may face at work. Travel Avoid long distance travel (greater than 1 hour) in airplanes and cars for the first 6 weeks after surgery. If you must travel, you need to have a Doppler ultrasound done before you travel to rule out a blood clot in your legs. Follow-up You should have a follow-up appointment already scheduled 1-2 days after surgery. If not, please contact our office to make this appointment before you leave the hospital. When to call the office It is normal to have swelling and bruising in the limb that was operated on. This will improve with time. It is also normal to have fevers for the first 2 days after surgery. Reasons you should call your doctor include: Uncontrolled pain; Nausea, vomiting, or constipation that does not improve with medication; Fevers over 101.5, chills, sweats; Drainage or bleeding from the wound; Foul odor; Spreading areas of redness; Any other concerns Pending Studies at Discharge: No Stand-Alone Forms: [facility] Medications and DC Order Prescriptions: New aspirin 81 mg Tablet,Delayed Release (Dr/Ec) 81 mg PO BID 30 Days Qty: 60 0RF acetaminophen [Tylenol Extra Strength] 500 mg Tablet 1,000 mg PO Q8 30 Days Qty: 180 0RF oxycodone 5 mg Tablet 5 - 10 mg PO Q4H PRN (Reason: Postoperative pain control) Qty: 28 0RF diclofenac sodium 75 mg tablet,delayed release (DR/EC) 75 mg PO BID 30 Days Qty: 60 0RF Continued ondansetron 4 mg tablet,disintegrating 4 mg PO Q8H PRN (Reason: nausea and vomiting) Qty: 30 3RF prochlorperazine maleate [Compazine] 10 mg tablet 10 mg PO Q8H PRN (Reason: nausea and vomiting) Qty: 20 0RF omeprazole 40 mg capsule,delayed release(DR/EC) 40 mg PO QAM Qty: 90 3RF triamterene-hydrochlorothiazid 37.5-25 mg capsule 1 cap PO .q4xWK Qty: 20 8RF Rx Instructions: four times per week-wednesday, wednesday, , wednesday lisinopril 2.5 mg tablet 2.5 mg PO QAM Qty: 90 3RF clobetasol 0.05 % cream See Rx Instructions .ROUTE .COMPLEX Qty: 60 0RF Dose Instruction: APPLY TOPICALLY SPARINGLY TO AFFECTED AREA(S) twice WEEKLY Rx Instructions: APPLY TOPICALLY SPARINGLY TO AFFECTED AREA(S) twice WEEKLY calcium polycarbophil [FiberCon] 625 mg tablet 625 mg PO QAM diazepam [Valium] 2 mg tablet 2 mg PO BID PRN (Reason: dizziness or vertigo) Qty: 10 3RF cyanocobalamin (vitamin B-12) 5,000 mcg tablet,disintegrating 5,000 mcg PO .weekly ferrous sulfate 325 mg (65 mg iron) tablet 325 mg PO UD Rx Instructions: TAKES ON MON, WED, WED & SAT. lorazepam 0.5 mg tablet 0.5 mg PO HS PRN (Reason: Anxiety) Qty: 30 0RF fluocinolone acetonide oil 0.01 % drops 3 drp otic (ear) QAM PRN (Reason: ear itching) Qty: 20 0RF Rx Instructions: Apply to affected ear once daily, 2- days/week PRN itchy ear cholecalciferol (vitamin D3) [Vitamin D3] 5,000 unit Tablet 5,000 unit PO QAM naratriptan [Amerge] 2.5 mg tablet 2.5 mg PO UD PRN (Reason: migraines) Rx Instructions: take 1 tab at onset of headache; if no relief may repeat 1 tab after at least 4 hrs; max = 2-3 tabs per week pravastatin 20 mg tablet 20 mg PO UD Rx Instructions: four times per week-wednesday, wednesday, , wednesday azelastine 137 mcg (0.1 %) aerosol,spray 2 spray intranasal QAM PRN (Reason: Congestion) fluticasone propionate [Flonase Allergy Relief] 50 mcg/actuation spray,suspension 2 spray INTNAS BID PRN (Reason: Congestion) Rx Instructions: administer into each nostril levothyroxine 112 mcg tablet 112 mcg PO QAM oxycodone 5 mg tablet 5 mg PO Q4H MDD Ongoing therapy Qty: 28 0RF docusate sodium [Colace] 100 mg capsule 100 mg PO BID Qty: 60 0RF polyethylene glycol 3350 [Miralax] 17 gram/dose Powder 17 g PO DAILY Discontinued ibuprofen 600 mg Tablet 600 mg PO Q8H PRN (Reason: Pain) Admission Data Admit Date/Time: 11/19/22 08:56 Attending Provider: Yaron Geller Admit Provider: Yaron Geller Primary Care Provider: Manas Fulton Other Providers: [facility],Home Health
[2022-11-20] MEDS: oxyCODONE HCL IR 5 MG TAB (IMMEDIATE RELEASE) PO PRN (11:03)
[2022-11-20] MEDS ORDERED: CeleBREX 200 MG CAP PO SCH (12:00)
[2022-11-22] MEDS ORDERED: CYANOCOBALAMIN (B-12) 2,500 MCG TABLET SL SCH (09:00)
== END 2022-11-20 11:38 | disposition home health service (06) ==
LOC: 3N 05:00 → ASU 05:00 → 3N 15:22